=== PATIENT | male | born 1955 | race Caucasian/White ===

== ENCOUNTER 2018-08-03 10:14 | Observation (INO) | payer OTHER ==
[2018-08-03 10:57] VITALS: BMI 29.8
[2018-08-03] MEDS ORDERED: GLUCAGON 1 MG/VIAL IM PRN (11:08)
[2018-08-03] MEDS: INSULIN -REGULAR HUMAN 50 UNIT/0.5 ML ML SQ SCH ×3 (12:00→23:32)
[2018-08-03] MEDS: NACHLORIDE 0.45% 1,000 ML IV SCH ×2 (12:10→21:11)
[2018-08-03 13:45] LABS: Urine Appearance CLEAR; Urine Blood NEGATIVE (NEG); Urine Color DK YELLOW; Urine Glucose NEGATIVE (NEG); Urine Protein NEGATIVE (NEG); Urine Specific Gravity 1.015 (1.005-1.030)
[2018-08-03 13:49] LABS: Urine Bilirubin NEG (NEG); Urine Microscopic Reflex ORDER UMIC
--- NOTE | 2018-08-03 13:55 | RAD REPORT ---
EXAM DESCRIPTION: CT - Abdomen Pelvis W Contrast - 08/03/2018 1:43 pm CLINICAL HISTORY: Abdominal pain. Jaundice COMPARISON: None. TECHNIQUE: Computed axial tomography of the abdomen and pelvis was obtained. 100 cc Isovue-300 is ad ministered intravenously. Oral contrast was given. All CT scans are performed using dose optimization technique as appropriate and may include automated exposure control or mA/KV adjustment according to patient size. FINDINGS: Gallstones without gallbladder wall thickening. Biliary tree does not appear to be dilated The liver, spleen, pancreas, and adrenal appear unremarkable. 13 millimeter calculus within the left renal pelvis without hydronephrosis. Several additional bilate ral renal calculi. Small renal cysts. There is no evidence of diverticulitis Prostate gland is mildly enlarged. Spondylosis involves lumbar spine resulting spinal stenosis IMPRESSION: Bilateral nonobstructing renal calculi Cholelithiasis without cholecystitis
[2018-08-03 13:57] LABS: Urine Bacteria <20 /HPF (NONE SEEN); Urine Culture Reflex Order REFLEXED; Urine RBC <5 /HPF (NONE SEEN)
[2018-08-03] MEDS: D50W 25 GM/50 ML SYRINGE IV PRN ×2 (18:45→23:31)
[2018-08-03 18:58] LABS: Absolute Lymphocytes (CBC) 1.8 K/uL (0.7-4.9); Absolute Monocytes 0.7 K/uL (0.1-1.3); Absolute Neutrophil 4.6 K/uL (1.8-8.0); Basophils % 0.3 % (0-1.3); Eosinophils % 9.9 % (0-4.4); Hematocrit 41.3 % (39.6-49.0); Lymphocytes % 23.3 % (15.3-44.8); MPV 7.4 fL (7.6-11.3); Monocytes % 8.8 % (3.3-12.3); RBC Red Blood Cell Count 4.43 M/uL (4.33-5.43)
[2018-08-03 19:02] LABS: Protime INR 1.1
[2018-08-03 19:18] LABS: Bilirubin Direct 2.2 mg/dL (0-0.2); Bilirubin Total 2.8 mg/dL (0.2-1.0); Phosphorus 3.7 mg/dL (2.5-4.9)
--- NOTE | 2018-08-03 20:14 | RAD REPORT ---
EXAM DESCRIPTION: MRI - Cholangiogram - 08/03/2018 7:55 pm CLINICAL HISTORY: Biliary obstruction, abdominal pain COMPARISON: CT study August 03 TECHNIQUE: Axial and coronal heavily T2 weighted sequences were obtained. Coronal T2 HASTE fat satur ation static and coronal multiplane reconstruction imaging generated and reviewed. Horizontal and laquita tical axis rotational views obtained using maximum intensity projection (MIP) protocol. FINDINGS: Multiple clustered gallstones are identified matching the CT finding. No gallbladder wall thickening or edema findings identifiable. No abnormal pancreatic duct dilatation. No intrahepatic bi liary tree dilatation identified. Extrahepatic biliary tree is small in diameter. No duct stone, stri cture, mass or other biliary tree abnormality. Crossing vascular defects are present. IMPRESSION: No duct stone or other biliary tree abnormality. Cholelithiasis without cholecystitis.
[2018-08-04] MEDS: INSULIN -REGULAR HUMAN 50 UNIT/0.5 ML ML SQ SCH ×4 (06:00→21:00)
[2018-08-04] MEDS ORDERED: D5 0.45 NS 1,000 ML IV SCH (07:00)
[2018-08-04 18:01] LABS: Bilirubin Total 2.5 mg/dL (0.2-1.0); Potassium 4.4 mmol/L (3.5-5.1); Protein, Total 7.2 g/dL (6.4-8.2)
--- NOTE | 2018-08-04 18:17 | HP ---
Date of Admission: 08/03/2018 Chief Complaint: Jaundice. History Of Present Illness: A 63-year-old male was seen in the office the day before admission for a visit. However, he was found to have jaundice. Outpatient workup including lab was done, which ivanna wed evidence of hyperbilirubinemia and elevated liver enzymes with a possibility of biliary obstructi on. The patient was admitted for observation. Past Medical History: The patient is known to have history of type 2 diabetes and hypertension. No history of known coronary artery disease. Past Surgical History: Positive for appendix surgery and cataract surgery. Allergies: NONE. Home Medications: Please refer to the chart. Review of Systems: No history of fever, chills, rigors. Social History: No current history of smoking, however, has a past history of smoking. Physical Examination: General: Revealed a 63-year-old male, not in acute pain. Afebrile. HEENT: Icterus noted. Chest: Few scattered wheezes. Heart: Regular. Abdomen: Soft. No palpable mass. Extremities: No edema. Laboratory Data: Elevated bilirubin, normal white count as documented. Assessment: 1.Jaundice with elevated liver enzymes. 2.Type 2 diabetes. 3.Hypertension. Plan: The patient had MRCP and CAT scan. This does not show any evidence of biliary obstruction. T he patient very likely may have had acute liver injury of some cause as his liver enzymes in the past were normal. GI consult has been done. MARYLOU/GEM Voice ID: [id number]
[2018-08-05 00:34] VITALS: O2SAT 93
[2018-08-05 05:05] VITALS: BP 124/79; TEMP 97
[2018-08-05 05:51] LABS: Albumin 3.2 g/dL (3.4-5.0); Bilirubin Direct 2.1 mg/dL (0-0.2); Bilirubin Total 2.7 mg/dL (0.2-1.0); Protein, Total 7.3 g/dL (6.4-8.2)
[2018-08-05] MEDS: INSULIN -REGULAR HUMAN 50 UNIT/0.5 ML ML SQ SCH (07:30)
--- NOTE | 2018-08-05 12:45 | P.PN ---
Subjective Date of Service: 08/05/18 Chief Complaint: Jaundice, hepatitis, elevated globulin Subjective: Improving (Total bilirubin as per PCP max at 4-5 and now at 2.5- 2.8. He feels well today without F/C/NS/N/V. Tolerating po diet. No new medications.) Review of Systems 10-point ROS is otherwise unremarkable Integumentary: Jaundice Physical Examination - Vital Signs Temperature: 97.0 F Blood Pressure: 124/79 Pulse: 89 Respirations: 18 Pulse Ox (%): 99 - Physical Exam General: Alert, In no apparent distress, Oriented x3, Cooperative HEENT: Atraumatic, Normocephalic, PERRLA, EOMI, Scleral icterus Neck: Supple Respiratory: Normal air movement Cardiovascular: Normal pulses Gastrointestinal: Soft and benign, No tenderness, No rebound, No guarding Neurological: Normal speech, Normal strength at 5/5 x4 extr - Studies Laboratory Data (last 24 hrs) 08/05/18 : PT Cancelled, INR Cancelled, APTT Cancelled 08/05/18 : WBC Cancelled, Hgb Cancelled, Hct Cancelled, Plt Count Cancelled 08/05/18 04:59: Total Bilirubin 2.7 H, AST 52 H, ALT 61, Alkaline Phosphatase 129 H 08/04/18 17:33: Sodium 140, Potassium 4.4, BUN 22 H, Creatinine 1.22, Glucose 117 H, Total Bilirubin 2.5 H, AST 54 H, ALT 63, Alkaline Phosphatase 134 H Microbiology Data (last 24 hrs): 08/03/18 13:00 Clean Catch Urine [place] Count - Final BETWEEN 10,000 & 100,000 CFU/ML 08/03/18 13:00 Clean Catch Urine - Final Assessment And Plan - Current Problems (Diagnosis) (1) Jaundice due to hepatitis Status: Acute (2) Hepatitis Status: Acute Comment: Autoimmune or infectious or other. (3) Elevated liver enzymes Status: Acute - Plan REC: 1) await labs (RAYMOND, AMA, ASMA, anti-LKM, total IgG, viral hepatitis panel, HSV, CMV, EBV titers) 2) pharmacy to review medications for possible cause of hepatitis 3) consider steroids if viral hepatitis tests negative
[2018-08-07 05:46] LABS: Gamma Glutamyl Transpeptidase 127 U/L (3-70)
[2018-08-10 03:12] LABS: HBsAG Nonreactive (Nonreactive); Hepatitis A IgM Antibody Nonreactive
== END 2018-08-05 12:29 | disposition home or self-care (01) ==
LOC: 2ND 10:30
PROVIDERS: ADMIT Internal Medicine; ATTEND Internal Medicine
DX: B17.9 Acute viral hepatitis, unspecified (principal); R17 Unspecified jaundice; R74.8 Abnormal levels of other serum enzymes; E11.9 Type 2 diabetes mellitus without complications; I10 Essential (primary) hypertension
CPT/HCPCS: 87088; 85025; 87086; 82977; 36415 ×3; 83735; 84100; 85610; 82565; 82962 ×9; 80076 ×2; 85730; 80053; 86038; 86255 ×2; 82784; 86301; 86376 ×2; 80074; 74177; 74181; Q9967; G0379; G0378; 81003; 81015

== ENCOUNTER 2020-06-26 17:49 | Inpatient (IN) | payer OTHER ==
--- NOTE | 2020-06-26 18:50 | RAD REPORT ---
EXAM DESCRIPTION: RAD - Chest Single View - 06/26/2020 6:25 pm CLINICAL HISTORY: edema Chest pain. COMPARISON: No comparisons FINDINGS: Portable technique limits examination quality. Mild interstitial pulmonary edema seen. The heart is upper limit normal in size. No displaced fractur es.
[2020-06-26 18:55] LABS: Absolute Lymphocytes (CBC) 0.8 K/uL (0.7-4.9); Basophils % 0.5 % (0-1.3); Hematocrit 49.4 % (39.6-49.0); MPV 8.6 fL (7.6-11.3); RBC Red Blood Cell Count 5.55 M/uL (4.33-5.43)
[2020-06-26 19:22] LABS: Albumin 2.5 g/dL (3.4-5.0); Bilirubin Direct 0.9 mg/dL (0-0.2); Bilirubin Total 1.4 mg/dL (0.2-1.0); Magnesium 2.4 mg/dL (1.8-2.4); Potassium 5.1 mmol/L (3.5-5.1); Protein, Total 8.3 g/dL (6.4-8.2); Troponin (Emerg Dept Use Only) 0.1 ng/mL (0.0-0.045)
[2020-06-26 19:25] LABS: Protime INR 1.44
--- NOTE | 2020-06-26 20:06 | RAD REPORT ---
EXAM DESCRIPTION: US - Extrem Venous W Compress Raza - 06/26/2020 7:41 pm CLINICAL HISTORY: Pain;Swelling Bilateral leg edema and swelling. COMPARISON: No comparisons TECHNIQUE: Real-time sonographic interrogation of the left and right lower extremity deep venous sys tems was performed. FINDINGS: The right greater saphenous vein near the junction with the common femoral vein demonstrat es echogenic thrombus. Elsewhere, there is no DVT seen bilaterally. Posterior tibial veins were not w ell visualized bilaterally. IMPRESSION: Echogenic thrombus is present within the right greater saphenous vein in close proximity to the junction with the common femoral vein. Elsewhere, no bilateral lower extremity DVT evident.
--- NOTE | 2020-06-26 20:39 | EDPHYS ---
Physician Documentation [facility] Name: George Ryder Age: 65 yrs Sex: Male : 1955 Arrival Date: 06/26/2020 Time: 17:54 Bed 15 Private MD: Orlando Jefferson R ED Physician Gerry Hanson HPI: 06/26 18:15 This 65 yrs old Male presents to ER via EMS with complaints of Leg Swelling. cp 18:15 The patient presents with pain, swelling, tenderness. The complaints affect the right cp lower leg and left lower leg. Onset: The symptoms/episode began/occurred 6 week(s) ago. Associated signs and symptoms: Pertinent positives: warmth, shortness of breath, Pertinent negatives fever. Treatment prior to arrival includes: no previous treatment. Historical: - Allergies: 17:56 No Known Allergies; hb - Home Meds: 17:58 Glimepiride Oral [Active]; Lisinopril Oral [Active]; hb - PMHx: 17:58 High Cholesterol; Diabetes - NIDDM; Hypertension; Prostate; hb - Immunization history:: Adult Immunizations up to date, Flu vaccine is up to date. - Social history:: Smoking status: Patient denies any tobacco usage or history of. ROS: 18:20 Constitutional: Negative for body aches, chills, fever, poor PO intake. cp 18:20 Eyes: Negative for injury, pain, redness, and discharge. cp 18:20 ENT: Negative for ear pain, sore throat, difficulty swallowing, difficulty handling secretions. 18:20 Cardiovascular: Positive for edema, Negative for chest pain, palpitations. 18:20 Respiratory: Positive for shortness of breath, Negative for cough, wheezing. 18:20 Abdomen/GI: Negative for abdominal pain, nausea, vomiting, and diarrhea. 18:20 Back: Negative for pain at rest, pain with movement. 18:20 Neuro: Negative for altered mental status, headache, syncope, weakness. 18:20 All other systems are negative. Exam: 18:25 Constitutional: The patient appears in no acute distress, alert, awake, cp non-diaphoretic, non-toxic, well developed, well nourished, obese. 18:25 Head/Face: Normocephalic, atraumatic. cp 18:25 Eyes: Periorbital structures: appear normal, Conjunctiva: normal, no exudate, no injection, Sclera: no appreciated abnormality, Lids and lashes: appear normal, bilaterally. 18:25 ENT: External ear(s): are unremarkable, Nose: is normal, Mouth: Lips: moist, Oral mucosa: moist, Posterior pharynx: Airway: no evidence of obstruction, patent. 18:25 Neck: ROM/movement: is normal, is supple, without pain, no range of motions limitations. 18:25 Chest/axilla: Inspection: normal, Palpation: is normal, no crepitus, no tenderness. 18:25 Cardiovascular: Rate: tachycardic, Rhythm: regular, Edema: ankle edema, that is moderate, JVD: is not appreciated. 18:25 Respiratory: the patient does not display signs of respiratory distress, Respirations: labored breathing, that is mild, intercostal retractions, are absent, Breath sounds: decreased breath sounds, that are mild, throughout, stridor, is not appreciated, wheezing: is not appreciated. 18:25 Abdomen/GI: Inspection: abdomen appears normal, Bowel sounds: active, all quadrants, Palpation: abdomen is soft and non-tender, in all quadrants. 18:25 Back: pain, is absent, ROM is normal. 18:25 Skin: noted erythema left lower leg. 18:25 Neuro: Orientation: to person, place \T\ time. Mentation: is normal, Motor: moves all fours, general weakness with no focal deficits. 18:35 ECG was reviewed by the Attending Physician. cp Vital Signs: 17:55 BP 112 / 80; Pulse 113; Resp 20; Temp 97.1; Pulse Ox 96% on R/A; Weight 113.4 kg; hb Height 6 ft. 1 in. (185.42 cm); Pain 4/10; 18:45 BP 94 / 69; Pulse 109; Resp 19; Pulse Ox 96% on R/A; tw2 19:10 BP 97 / 74; Pulse 107; Resp 27; Pulse Ox 93% on R/A; jb4 20:15 BP 101 / 68; Pulse 107; Resp 23; Pulse Ox 98% on R/A; jb4 21:00 BP 120 / 84; Pulse 108; Resp 30; Pulse Ox 94% on R/A; jb4 22:30 BP 100 / 82; Pulse 103; Resp 24; Pulse Ox 93% on R/A; jb4 23:15 BP 107 / 84; Pulse 101; Resp 28; Pulse Ox 92% on R/A; jb4 17:55 Body Mass Index 32.98 (113.40 kg, 185.42 cm) hb MDM: 17:56 Patient medically screened. adeline 18:30 Differential diagnosis: DVT, cellulitis, pulmonary edema, CHF acute NV. cp 20:45 Data reviewed: vital signs, nurses notes, lab test result(s), EKG, radiologic studies, cp plain films, ultrasound. 20:45 Test interpretation: by ED physician or midlevel provider: ECG, plain radiologic cp studies. Counseling: I had a detailed discussion with the patient and/or guardian regarding: the historical points, exam findings, and any diagnostic results supporting the discharge/admit diagnosis, lab results, radiology results, the need for further work-up and treatment in the hospital. Response to treatment: the patient's symptoms have mildly improved after treatment. Physician consultation: Elio BREWSTER was contacted at 20:40, regarding admission, to the telemetry unit. patient's condition, and will see patient in ED, shortly. 06/26 18:08 Order name: Basic Metabolic Panel cp 06/26 18:08 Order name: CBC with Diff; Complete Time: 19:56 cp 18 19:56 Interpretation: Normal except: RBC 5.55; HCT 49.4; MCV 88.9; MCH 28.2; MCHC 31.7; RDW cp 15.7; BECKIE% 79.8; LYM% 8.0. 06/26 18:08 Order name: LFT's; Complete Time: 19:56 cp 18 19:57 Interpretation: Normal except: ALK 122; BILIT 1.4; BILID 0.9; TP 8.3; ALB 2.5; GLOB cp 5.8; A/G 0.4. 06/26 18:08 Order name: Magnesium; Complete Time: 19:56 cp 18 18:08 Order name: NT PRO-BNP; Complete Time: 19:56 cp 18 18:08 Order name: PT-INR; Complete Time: 19:56 cp 18 18:08 Order name: Troponin (emerg Dept Use Only); Complete Time: 19:56 cp 02/18 19:57 Interpretation: Abnormal: TROPED 0.10. cp 06/26 18:08 Order name: XRAY Chest (1 view); Complete Time: 18:52 cp 02 18:52 Interpretation: Report reviewed. cp 06/26 18:08 Order name: US Extremity Venous W Compression Raza; Complete Time: 20:14 cp 18 18:08 Order name: Basic Metabolic Panel; Complete Time: 19:56 EDMS 02 19:57 Interpretation: Normal except: BUN 29; CRE 1.42; GFR 50; CA 8.3. cp 06/26 22:30 Order name: SARS-COV-2 RT PCR EDMS 06/26 18:08 Order name: EKG; Complete Time: 18:09 cp 06/26 18:08 Order name: Cardiac monitoring; Complete Time: 18:43 cp 06/26 18:08 Order name: EKG - Nurse/Tech; Complete Time: 18:43 cp 06/26 18:08 Order name: IV Saline Lock; Complete Time: 18:43 cp 06/26 18:08 Order name: Labs collected and sent; Complete Time: 18:43 cp 06/26 18:08 Order name: O2 Per Protocol; Complete Time: 18:43 cp 18 18:08 Order name: O2 Sat Monitoring; Complete Time: 18:42 cp EC:35 Rate is 110 beats/min. Rhythm is regular. VT interval is normal. QRS interval is cp normal. QT interval is normal. T waves are Inverted in leads II, III, aVR, V3, V4, V5, V6. Interpreted by me. Reviewed by me. Administered Medications: 20:45 Drug: Aspirin Chewable Tablet 324 mg Route: PO; jb4 21:15 Follow up: Response: No adverse reaction jb4 20:45 Drug: Lovenox 1 mg/kg Route: Sub-Q; Site: right lower abdomen; jb4 21:15 Follow up: Response: No adverse reaction jb4 20:46 Drug: Lasix 20 mg Route: IVP; Site: left forearm; jb4 06/27 03:28 Follow up: Response: No adverse reaction jb4 06/26 20:47 Drug: Clindamycin 900 mg Route: IVPB; Infused Over: 30 mins; Site: left forearm; jb4 21:17 Follow up: Response: No adverse reaction; IV Status: Completed infusion; IV Intake: [id number] 21:58 Drug: vancoMYCIN 1 grams Route: IVPB; Infused Over: 2 hrs; Site: left forearm; jb4 23:58 Follow up: Response: No adverse reaction; IV Status: Completed infusion; IV Intake: jb4 250ml Disposition: 06/27 19:16 Co-signature as Attending Physician, Gerry Hanson MD I agree with the assessment and tw4 plan of care. Disposition: 06/26/20 20:39 Hospitalization ordered by Carlos Francisco for Inpatient Admission. Preliminary diagnosis are Unspecified combined systolic (congestive) and diastolic (congestive) heart failure, Acute embolism and thrombosis of unspecified deep veins of left lower extremity. - Bed requested for Telemetry/MedSurg (Inpatient). - Status is Inpatient Admission. jb4 - Condition is Fair. - Problem is new. - Symptoms have improved. Signatures: Dispatcher [employer] EDFL Mitch Sesay MD MD cha Page, Corey, PA PA cp Garcia, Cindy, RN RN Callie Lam RN RN Ihsan Crook RN RN banner Gerry Hanson MD MD 4 Corrections: (The following items were deleted from the chart) 02 19:57 19:57 Normal except: ALK 122; BILIT 1.4; BILID 0.9; TP 8.3; ALB 2.5; GLOB 5.8. cp cp 19:58 19:57 Normal except: BUN 29; CRE 1.42; GFR 50. cp cp 21:44 21:23 CORONAVIRUS+MR.LAB.BRZ ordered. [facility] 23:47 20:39 Hospitalization Ordered by Carlos Francisco DO for Inpatient Admission. Preliminary cg diagnosis is Unspecified combined systolic (congestive) and diastolic (congestive) heart failure; Acute embolism and thrombosis of unspecified deep veins of left lower extremity. Bed requested for Telemetry/MedSurg (Inpatient). Status is Inpatient Admission. Condition is Fair. Problem is new. Symptoms have improved. cp 06/27 00:41 06/26 23:47 06/26/2020 20:39 Hospitalization Ordered by Carlos Francisco DO for Inpatient jb4 Admission. Preliminary diagnosis is Unspecified combined systolic (congestive) and diastolic (congestive) heart failure; Acute embolism and thrombosis of unspecified deep veins of left lower extremity. Bed requested for Telemetry/MedSurg (Inpatient). Status is Inpatient Admission. Condition is Fair. Problem is new. Symptoms have improved. cg
--- NOTE | 2020-06-26 20:39 | ER ---
Nurse's Notes [facility] Name: George Ryder Age: 65 yrs Sex: Male : 1955 Arrival Date: 06/26/2020 Time: 17:54 Bed 15 Private MD: Orlando Jefferson R Diagnosis: Unspecified combined systolic (congestive) and diastolic (congestive) heart failure;Acute embolism and thrombosis of unspecified deep veins of left lower extremity Presentation: 06/26 17:55 Chief complaint: EMS states: Bilateral lower leg pain and swelling x 6 weeks. hb Coronavirus screen: At this time, the client does not indicate any symptoms associated with coronavirus-19. Ebola Screen: No symptoms or risks identified at this time. Initial Sepsis Screen: Does the patient meet any 2 criteria? HR > 90 bpm. No. Patient's initial sepsis screen is negative. Does the patient have a suspected source of infection? No. Patient's initial sepsis screen is negative. Risk Assessment: Do you want to hurt yourself or someone else? Patient reports no desire to harm self or others. Onset of symptoms was May 2020. 17:55 Method Of Arrival: EMS: [facility] hb 17:55 Acuity: CYRUS 3 hb Historical: - Allergies: 17:56 No Known Allergies; hb - Home Meds: 17:58 Glimepiride Oral [Active]; Lisinopril Oral [Active]; hb - PMHx: 17:58 High Cholesterol; Diabetes - NIDDM; Hypertension; Prostate; hb - Immunization history:: Adult Immunizations up to date, Flu vaccine is up to date. - Social history:: Smoking status: Patient denies any tobacco usage or history of. Screenin:57 Abuse screen: Denies threats or abuse. Denies injuries from another. Nutritional hb screening: No deficits noted. Tuberculosis screening: No symptoms or risk factors identified. Fall Risk Total Cherry Fall Scale indicates High Risk Score (45 or more points). Fall prevention measures have been instituted. Side Rails Up X 2 Frequent Obs/Assessments Occuring As available patient and family educated on Fall Prevention Program and Strategies. Assessment: 18:00 General: Appears in no apparent distress. obese, unkempt, Behavior is calm, tw2 cooperative, appropriate for age. Pain: Complains of pain in right leg and left leg. Neuro: Level of Consciousness is awake, alert, obeys commands, Oriented to person, place, time, situation. Cardiovascular: Patient's skin is warm and dry. Respiratory: Airway is patent Respiratory effort is even, unlabored, Respiratory pattern is regular, symmetrical. GI: Abdomen is round. : No signs and/or symptoms were reported regarding the genitourinary system. EENT: No signs and/or symptoms were reported regarding the EENT system. Derm: Skin with poor turgor Skin is dry. Musculoskeletal: swelling noted to B/L ARABELLA, also noted multiple sites of large black scabbed sores to Right knee and Left hollins area, also noted sore noted to left ball of great toe with scab intact Reports pain in right leg and left leg and swelling with sores noted to RIGHT and LEFT leg. 18:45 Reassessment: No changes from previously documented assessment. Patient and/or family tw2 updated on plan of care and expected duration. Pain level reassessed. 19:10 Reassessment: Patient appears in no apparent distress at this time. Patient and/or jb4 family updated on plan of care and expected duration. Pain level reassessed. Patient is alert, oriented x 3, equal unlabored respirations, skin warm/dry/pink. Ultrasound is at the bedside. 20:00 Reassessment: Patient appears in no apparent distress at this time. Patient and/or jb4 family updated on plan of care and expected duration. Pain level reassessed. Patient is alert, oriented x 3, equal unlabored respirations, skin warm/dry/pink. 21:00 Reassessment: Patient appears in no apparent distress at this time. Patient and/or jb4 family updated on plan of care and expected duration. Pain level reassessed. Patient is alert, oriented x 3, equal unlabored respirations, skin warm/dry/pink. 22:00 Reassessment: Patient appears in no apparent distress at this time. Patient and/or jb4 family updated on plan of care and expected duration. Pain level reassessed. Patient is alert, oriented x 3, equal unlabored respirations, skin warm/dry/pink. 23:00 Reassessment: Patient appears in no apparent distress at this time. Patient and/or jb4 family updated on plan of care and expected duration. Pain level reassessed. Patient is alert, oriented x 3, equal unlabored respirations, skin warm/dry/pink. 06/27 00:00 Reassessment: Patient appears in no apparent distress at this time. Patient and/or jb4 family updated on plan of care and expected duration. Pain level reassessed. Patient is alert, oriented x 3, equal unlabored respirations, skin warm/dry/pink. Vital Signs: 06/26 17:55 BP 112 / 80; Pulse 113; Resp 20; Temp 97.1; Pulse Ox 96% on R/A; Weight 113.4 kg; hb Height 6 ft. 1 in. (185.42 cm); Pain 4/10; 18:45 BP 94 / 69; Pulse 109; Resp 19; Pulse Ox 96% on R/A; tw2 19:10 BP 97 / 74; Pulse 107; Resp 27; Pulse Ox 93% on R/A; jb4 20:15 BP 101 / 68; Pulse 107; Resp 23; Pulse Ox 98% on R/A; jb4 21:00 BP 120 / 84; Pulse 108; Resp 30; Pulse Ox 94% on R/A; jb4 22:30 BP 100 / 82; Pulse 103; Resp 24; Pulse Ox 93% on R/A; jb4 23:15 BP 107 / 84; Pulse 101; Resp 28; Pulse Ox 92% on R/A; jb4 17:55 Body Mass Index 32.98 (113.40 kg, 185.42 cm) hb ED Course: 17:54 Patient arrived in ED. hb 17:54 Bed in low position. Call light in reach. Side rails up X2. shutdown planner on. Pulse tw2 ox on. NIBP on. Warm blanket given. 17:55 Mitch Mayfield PA is PHCP. cp 17:55 Mitch Sesay MD is Attending Physician. cp 17:56 Triage completed. hb 17:57 Arm band placed on. hb 17:59 Orlando Jefferson MD is Private Physician. hb 18:17 Evon Chun RN is Primary Nurse. tw2 18:25 XRAY Chest (1 view) In Process Unspecified. EDMS 18:40 Missed attempt(s): 20 gauge in right forearm. Bleeding controlled, band aid applied, tw2 catheter tip intact. 18:44 Inserted saline lock: 22 gauge in left forearm, using aseptic technique. Blood hb collected. 19:05 Report given to DAGO Samuels. tw2 19:40 US Extremity Venous W Compression Raza In Process Unspecified. EDMS 19:56 Gerry Hanson MD is Attending Physician. cp 20:37 Carlos Francisco DO is Hospitalizing Provider. cp 06/27 00:00 No provider procedures requiring assistance completed. Patient admitted, IV remains in jb4 place. Administered Medications: 06/26 20:45 Drug: Aspirin Chewable Tablet 324 mg Route: PO; jb4 21:15 Follow up: Response: No adverse reaction jb4 20:45 Drug: Lovenox 1 mg/kg Route: Sub-Q; Site: right lower abdomen; jb4 21:15 Follow up: Response: No adverse reaction jb4 20:46 Drug: Lasix 20 mg Route: IVP; Site: left forearm; jb4 06/27 03:28 Follow up: Response: No adverse reaction jb4 06/26 20:47 Drug: Clindamycin 900 mg Route: IVPB; Infused Over: 30 mins; Site: left forearm; jb4 21:17 Follow up: Response: No adverse reaction; IV Status: Completed infusion; IV Intake: [id number] 21:58 Drug: vancoMYCIN 1 grams Route: IVPB; Infused Over: 2 hrs; Site: left forearm; jb4 23:58 Follow up: Response: No adverse reaction; IV Status: Completed infusion; IV Intake: jb4 250ml Intake: 21:17 IV: 50ml; Total: 50ml. jb4 23:58 IV: 250ml; Total: 300ml. jb4 Outcome: 20:39 Decision to Hospitalize by Provider. cp 06/27 00:00 Admitted to Tele accompanied by nurse, via stretcher, room 430, with chart, Report jb[facility] Condition: stable Discharge instructions given to patient, Instructed on the need for admit, Demonstrated understanding of instructions. 00:41 Patient left the ED. jb4 Signatures: Dispatcher [employer] EDVA Mitch Mayfield PA PA cp Callie Lam, RN RN hb Evon Chun RN RN tw2 Ihsan Crook RN RN jb4 Corrections: (The following items were deleted from the chart) 06/26 19:11 16:40 Missed attempt(s): 20 gauge in right forearm. Bleeding controlled, band aid tw2 applied, catheter tip intact. hb
[2020-06-26] MEDS ORDERED: ASPIRIN 81 MG CHEWABLE TABLET ONE (20:49)
[2020-06-26] MEDS ORDERED: FUROSEMIDE 20 MG/ 2ML VIAL ONE (20:49)
[2020-06-26] MEDS ORDERED: NA CHLORIDE 0.9% 250 ML ONE (20:50)
[2020-06-26] MEDS ORDERED: ENOXAPARIN 80 MG/0.8 ML SQ ONE (20:50)
[2020-06-26] MEDS ORDERED: ENOXAPARIN 30 MG/0.3 ML SQ ONE (20:50)
[2020-06-26] MEDS ORDERED: VANCOMYCIN 1 GM/VIAL ONE (20:50)
[2020-06-26] MEDS ORDERED: CLINDAMYCIN 900MG/D5W 900 MG/50 ML IVPB IV ONE (20:51)
--- NOTE | 2020-06-26 23:39 | P.HP ---
Certification for Inpatient Patient admitted to: Inpatient With expected LOS: >2 Midnights Patient will require the following post-hospital care: None Practitioner: I am a practitioner with admitting privileges, knowledge of patient current condition, hospital course, and medical plan of care. Services: Services provided to patient in accordance with Admission requirements found in Title 42 Section 412.3 of the Code of Federal Regulations <lEio Rosado - Last Filed: 06/26/20 23:33> Patient History Date of Service: 06/26/20 Primary Care Provider: Dr. Jefferson Reason for admission: NSTEMI History of Present Illness: 65-year-old male with history of hypertension, diabetes mellitus type 2, hyperlipidemia presents emergency department for swelling of the lower extremities, weakness. Patient reports he has had significant swelling of the lower extremities for last 6-8 weeks in addition to redness of the left lower extremity. Patient with multiple wounds from multiple falls to bilateral lower extremities with open ulcerations as well. Patient evaluated in the emergency department lab significant for creatinine 1.42 GFR 50 BUN 29 baseline GFR appears to be around 60. BNP elevated 14,432 0 blood cell count 9.6 ultrasound bilateral lower extremities demonstrates thrombus present in the right greater saphenous vein close to the junction with the common femoral vein. Chest x-ray remarkable for mild interstitial edema initial troponin 0.1. Patient given full dose Lovenox in the emergency department in addition to vancomycin/cefepime. ED provider wishes to admit patient for further evaluation and management. Patient reports that he lives alone and has been falling multiple times over the course of the last few weeks, reports he can barely stand up on his own and does not have any assistive devices at home. - Past Medical/Surgical History Diabetic: Yes -: HTN -: DM -: Hyperlipidemia -: cataract sx -: appendectomy Psychosocial/ Personal History: Patient lives at home alone and is retired - Family History Father -: Heart disease - Social History Alcohol use: No CD- Drugs: No Caffeine use: No Place of Residence: Home <Elio Rosado - Last Filed: 06/26/20 23:33> Date of Service: 06/27/20 <Siddharth Montalvo - Last Filed: 06/27/20 20:32> Allergies No Known Allergies Allergy (Verified 08/03/18 10:49) Home Medications: Atorvastatin Calcium [Lipitor] 5 mg PO DAILY 08/03/18 Glimepiride 4 mg PO BID 08/03/18 lisinopriL [Prinivil] 5 mg PO DAILY 08/03/18 Review of Systems General: Weakness Respiratory: Shortness of Breath Cardiovascular: Edema Musculoskeletal: Leg Pain Integumentary: Rash <Elio Rosado - Last Filed: 06/26/20 23:33> Physical Examination - Physical Exam General: Alert, In no apparent distress, Oriented x3 HEENT: Atraumatic, Normocephalic Neck: Supple Respiratory: Crackles/rales (Bibasilar) Cardiovascular: Normal pulses, Normal S1 S2, Edema (2+ pitting edema bilateral lower extremities) Capillary refill: <2 Seconds Gastrointestinal: Normal bowel sounds, No tenderness, No masses, No rebound Musculoskeletal: Swelling (Bilateral lower extremities), Erythema, Tenderness, Warmth (Left lower extremity) Integumentary: Tenderness/swelling (Left lower extremity with swelling to the right lower extremity), Erythema, Warmth, Other (Multiple ulcerations/scabs to bilateral lower extremities patient reports from multiple falls.) Neurological: Normal speech, Sensation intact, Abnormal strength (Strength 4/5 in all 4 extremities) - Studies Laboratory Data (last 24 hrs) 06/26/20 18:40: PT 16.6 H, INR 1.44 06/26/20 18:40: WBC 9.60, Hgb 15.7, Hct 49.4 H, Plt Count 248 06/26/20 18:40: Sodium 137, Potassium 5.1, BUN 29 H, Creatinine 1.42 H, Glucose 96, Magnesium 2.4, Total Bilirubin 1.4 H, AST 30, ALT 31, Alkaline Phosphatase 122 H <Elio Rosado - Last Filed: 06/26/20 23:33> Assessment and Plan - Plan Assessment NSTEMI suspect demand ischemia with underlying undiagnosed CHF Cellulitis left lower extremity Superficial venous thrombosis right greater saphenous vein Weakness, medical debility, multiple falls Diabetes mellitus type 2 Hypertension Hyperlipidemia Plan NSTEMI suspect demand ischemia with underlying undiagnosed CHF: Monitor on telemetry, trend troponin levels. Patient denies any chest pain. Continue with IV Lasix, fluid restriction. Cardiology consult in place. Continue with full- dose Lovenox for both NSTEMI and superficial venous thrombosis. Cellulitis left lower extremity: Continue with vancomycin/cefepime blood cultures obtained in the emergency department, patient does not appear septic at this time. Anticipate clinical improvement next 48-72 hr. Superficial venous thrombosis right greater saphenous vein: Very close to the j unction of the common femoral vein, high risk for DVT/PE. Continue with full- dose Lovenox at this time. Weakness, medical debility, multiple falls: PT consult in place, patient lives alone and has had multiple falls over the course of the last few weeks. Patient will likely need home health with physical therapy at discharge. Diabetes mellitus type 2: A.c. HS Accu-Cheks, sliding scale insulin therapy. A1c with morning labs. Hypertension: Obtain and continue home meds Hyperlipidemia: Obtain and continue home meds lipid panel with morning labs Discharge Plan: Home Plan to discharge in: Greater than 2 days - Advance Directives Does patient have a Living Will: No Does patient have a Durable POA for Healthcare: Yes - Code Status/Comfort Care Code Status Assessed: Yes (Full code) Critical Care: No Time Spent Managing Pts Care (In Minutes): 55 <Elio Rosado - Last Filed: 06/26/20 23:33> - Plan Agree with plan of care as noted above by Elio Rosado. NSTEMI, likely undiagnosed CHF, appears very debilitated Echo ordered. Cardiology consulted <Siddharth Montalvo - Last Filed: 06/27/20 20:32>
[2020-06-27] MEDS ORDERED: HYDROCODONE/APAP 7.5/325 MG TAB PO PRN (00:42)
[2020-06-27] MEDS ORDERED: VANCOMYCIN/NS 1 gm 1 GM/250 ML BAG IVPB SCH (00:42)
[2020-06-27] MEDS ORDERED: ONDANSETRON 4 MG/2 ML VIAL IV PRN (00:42)
[2020-06-27] MEDS ORDERED: VANCOMYCIN/NS 1 gm 1 GM/250 ML BAG IVPB ONE (01:30)
[2020-06-27] MEDS ORDERED: VANCOMYCIN 1 GM/VIAL ONE (01:56)
[2020-06-27] MEDS ORDERED: NA CHLORIDE 0.9% 250 ML ONE (02:03)
[2020-06-27] MEDS: ACETAMINOPHEN 500 MG TAB PO PRN (02:17)
[2020-06-27 06:45] LABS: Absolute Lymphocytes (CBC) 0.8 K/uL (0.7-4.9); Basophils % 0.2 % (0-1.3); Hematocrit 48.2 % (39.6-49.0); Lymphocytes % 10.5 % (15.3-44.8); MPV 9.2 fL (7.6-11.3); RBC Red Blood Cell Count 5.36 M/uL (4.33-5.43)
[2020-06-27 06:58] LABS: Magnesium 2.4 mg/dL (1.8-2.4); Potassium 5.1 mmol/L (3.5-5.1); Thyroid Stimulating Hormone 0.558 uIU/mL (0.360-3.740)
[2020-06-27] MEDS: INSULIN -REGULAR HUMAN 50 UNIT/0.5 ML ML SQ SCH ×4 (07:30→21:00)
[2020-06-27] MEDS ORDERED: PNEUMOCOCCAL VACCINE 0.5 ML IMVAC ONE (08:00)
[2020-06-27] MEDS ORDERED: FUROSEMIDE 40 MG/4 ML VIAL IV SCH (09:00)
[2020-06-27] MEDS ORDERED: CEFEPIME 1 GM/VIAL IV SCH (09:00)
[2020-06-27] MEDS: Enoxaparin 120 MG/0.8 ML SYR SQ SCH ×2 (09:15→22:03)
[2020-06-27] MEDS: CEFEPIME/SWI 1gm 10 ML IV SCH ×2 (09:16→22:30)
--- NOTE | 2020-06-27 13:02 | ECHO ---
HEIGHT: 6 ft 1 in WEIGHT: 250 lb 0 oz DATE OF STUDY: 06/27/[address]: Siddharth Montalvo MD 2-DIMENSIONAL: YES M.MODE: YES DOPPLER: YES COLOR FLOW: YES TDS: NO PORTABLE: NO DEFINITY: NO BUBBLE STUDY: NO DIAGNOSIS: CONGESTIVE HEART FAILURE/ ELEVATED TROPONIN CARDIAC HISTORY: CATHERIZATION: NO SURGERY: NO PROSTHETIC VALVE: NO PACEMAKER: NO MEASUREMENTS (cm) DIASTOLIC (NORMALS) SYSTOLIC (NORMALS) IVSd 1.1 (0.6-1.2) LA Diam 3.4 (1.9-4.0) LVEF 55-60% LVIDd 2.9 (3.5-5.7) LVIDs 1.8 (2.0-3.5) %FS 38% LVPWd 1.2 (0.6-1.2) Ao Diam 3.5 (2.0-3.7) 2 DIMENSIONAL ASSESSMENT: RIGHT ATRIUM: NORMAL LEFT ATRIUM: RIGHT VENTRICLE: DILATED RIGHT VENTRICCLE DEPRESSED FUNCTION. LEFT VENTRICLE: TRICUSPID VALVE: MODERATE TRICUSPID REGURGITATION MITRAL VALVE: PULMONIC VALVE: NORMAL AORTIC VALVE: THICKENED, NO AORTIC STENOSIS PERICARDIAL EFFUSION: NONE AORTIC ROOT: LEFT VENTRICULAR WALL MOTION: NORMAL. DOPPLER/COLOR FLOW: SEE BELOW COMMENTS: NORMAL LEFT VENTRICULAR EJECTION FRACTION 55-60% WITH NORMAL WALL MOTION. DILATED RIGHT VENTRICLE WITH MODERATELY DEPRESSED FUNCTION. SEVERE PULMONARY HYPERTENSION WITH RIGHT VENTRICULAR SYSTOLIC PRESSURE GREATER THAN 90mmHg. MODERATE TRICUSPID REGURGITATION. TECHNOLOGIST: MARINA CUELLO
--- NOTE | 2020-06-27 13:18 | RAD REPORT ---
EXAM DESCRIPTION: CT - Chest For Pe Angio - 06/27/2020 1:04 pm CLINICAL HISTORY: Shortness of breath COMPARISON: None. TECHNIQUE: Dynamically enhanced axial 3 mm thick images of the chest were obtained during administra tion of <100> mL Isovue 370 IV contrast. Coronal and oblique reconstruction images were generated and reviewed. Exam utilizes a protocol for optimal evaluation of pulmonary arterial tree. Maximum intensity projections 3D imaging was utilized All CT scans are performed using dose optimization technique as appropriate and may include automated exposure control or mA/KV adjustment according to patient size. FINDINGS: A pulmonary embolus is not seen. A thoracic aortic aneurysm is not noted. Small bilateral pleural effusions. A pericardial effusion is not seen. Mild bilateral interstitial lung opacities IMPRESSION: Negative for a pulmonary embolism. Mild CHF
[2020-06-27] MEDS: FUROSEMIDE 40 MG/4 ML VIAL IV SCH ×2 (15:00→22:01)
--- NOTE | 2020-06-27 20:39 | P.PN ---
Subjective Date of Service: 06/27/20 Primary Care Provider: Dr. Jefferson Chief Complaint: NSTEMI Subjective: No new changes (patient states he feels "okay". Not very forthocoming with information. hasn't been ambulating well at home, at times walking on his knees, had a fall a few weeks ago as well. Not very specific if swelling is worse recently or not) Review of Systems 10-point ROS is otherwise unremarkable Physical Examination - Vital Signs Temperature: 96.8 F Blood Pressure: 113/76 Pulse: 94 Respirations: 20 Pulse Ox (%): 98 Assessment & Plan Physician Review Additional Text: Physical Exam: General: Alert, In no apparent distress, Oriented x3 Pulm: diminished, bibasilar crackles CV: RRR, 2+pitting edema in lower extremities Abd: soft, NTND Ext: 2+ pitting edema, erythema and warmth bilaterally, multiple superficial ulcerations / scabs on lower extremities. b/l venous stasis changes Problem List: NSTEMI suspect demand ischemia with underlying undiagnosed CHF Cellulitis left lower extremity Superficial venous thrombosis right greater saphenous vein Weakness, debility, multiple falls multiple wounds DM2 Hypertension Hyperlipidemia monitor on telemetry, trend troponins. - denies chest pain increase IV lasix to 60mg BID, fluid restriction cardiology consulted TTE - severe pulm HTN, dilated right heart, mod-severe TR continue full dose lovenox - has superficial VT, and for NSTEMI CTA to r/o PE, if negative, will need right/left heart cath on Tuesday Superficial venous thrombosis right greater saphenous vein: Very close to the junction of the common femoral vein, high risk for DVT/PE. Continue with full- dose Lovenox at this time. PT consulted. pt lives alone, unable to get up to his chair at times, likely needs SNF on discharge sliding scale insulin obtain and continue home meds wound care consulted VTE: therapeutic lovenox Code: full Dispo: hospitalization >2 days, likely will need SNF on discharge Time Spent Managing Pts Care (In Minutes): 35
[2020-06-28] MEDS: VANCOMYCIN 2 GM in NA CHLORIDE 0.9% 500 ML IVPB SCH (01:47)
[2020-06-28] MEDS ORDERED: VANCOMYCIN 1 GM/VIAL ONE ×2 (02:02→02:20)
[2020-06-28] MEDS ORDERED: NA CHLORIDE 0.9% 250 ML ONE (02:03)
[2020-06-28] MEDS ORDERED: VANCOMYCIN 500 MG/VIAL ONE (02:18)
[2020-06-28 07:06] LABS: Absolute Lymphocytes (CBC) 0.9 K/uL (0.7-4.9); Basophils % 0.4 % (0-1.3); Hematocrit 50.2 % (39.6-49.0); Lymphocytes % 11.7 % (15.3-44.8); MPV 9.3 fL (7.6-11.3)
[2020-06-28 07:26] LABS: Albumin 2.4 g/dL (3.4-5.0); Bilirubin Total 1.3 mg/dL (0.2-1.0); Potassium 4.9 mmol/L (3.5-5.1); Protein, Total 8.6 g/dL (6.4-8.2)
[2020-06-28] MEDS: INSULIN -REGULAR HUMAN 50 UNIT/0.5 ML ML SQ SCH ×4 (07:30→20:10)
[2020-06-28] MEDS: Enoxaparin 120 MG/0.8 ML SYR SQ SCH ×2 (09:00→20:48)
[2020-06-28] MEDS: CEFEPIME/SWI 1gm 10 ML IV SCH ×2 (09:33→20:42)
[2020-06-28] MEDS: FUROSEMIDE 40 MG/4 ML VIAL IV SCH ×2 (09:34→20:43)
--- NOTE | 2020-06-28 21:14 | P.PN ---
Subjective Date of Service: 06/28/20 Primary Care Provider: Dr. Jefferson Chief Complaint: NSTEMI Subjective: No new changes (reports feeling ok, upset that he can't find urinal at times and has to urinate in bed, breathing ok, feels swelling is improving in legs) Review of Systems 10-point ROS is otherwise unremarkable Physical Examination - Vital Signs Temperature: 98.2 F Blood Pressure: 103/70 Pulse: 100 Respirations: 19 Pulse Ox (%): 94 Assessment & Plan Physician Review Additional Text: Physical Exam: General: Alert, In no apparent distress, Oriented x3 Pulm: diminished, bibasilar crackles CV: RRR, 1+pitting edema in lower extremities Abd: soft, NTND Ext: 1+ pitting edema, erythema and warmth bilaterally (more on L), multiple superficial ulcerations / scabs on lower extremities. b/l venous stasis changes Problem List: NSTEMI suspect demand ischemia with underlying undiagnosed CHF Cellulitis left lower extremity Superficial venous thrombosis right greater saphenous vein Weakness, debility, multiple falls multiple wounds DM2 Hypertension Hyperlipidemia continue IV lasix to 60mg BID, fluid restriction; not getting accurate I/O's, will discuss with patient regarding possible gerard temporarily TTE - severe pulm HTN, dilated right heart, mod-severe TR continue full dose lovenox - has superficial VT, and for NSTEMI CTA negative for PE Cardiology consulted - recommend right/left heart cath on Tuesday Superficial venous thrombosis right greater saphenous vein: Very close to the junction of the common femoral vein, high risk for DVT/PE. Continue with full- dose Lovenox at this time. PT consulted. pt lives alone, unable to get up to his chair at times, likely needs SNF on discharge, pt reluctant started on cefepime & vanc for cellulitis, will dc cefepime at this time sliding scale insulin wound care consulted VTE: therapeutic lovenox Code: full Dispo: hospitalization >2 days, likely will need SNF on discharge Time Spent Managing Pts Care (In Minutes): 35
[2020-06-29 00:46] LABS: Urine Appearance CLEAR; Urine Bilirubin NEGATIVE (NEG); Urine Blood 3+ (NEG); Urine Color YELLOW; Urine Glucose NEGATIVE (NEG); Urine Protein NEGATIVE (NEG); Urine Specific Gravity <=1.005 (1.005-1.030)
[2020-06-29 01:03] LABS: Urine Microscopic Reflex ORDER UMIC
[2020-06-29] MEDS: VANCOMYCIN 2 GM in NA CHLORIDE 0.9% 500 ML IVPB SCH (01:12)
[2020-06-29 02:02] LABS: Urine Bacteria 20-50 /HPF (NONE SEEN); Urine Mucus 1+ /HPF (NONE SEEN); Urine RBC 20-50 /HPF (NONE SEEN)
[2020-06-29 06:32] VITALS: BMI 34.2
[2020-06-29 07:00] LABS: Absolute Lymphocytes (CBC) 0.8 K/uL (0.7-4.9); Basophils % 0.2 % (0-1.3); Hematocrit 45.8 % (39.6-49.0); Lymphocytes % 8.3 % (15.3-44.8); MPV 8.9 fL (7.6-11.3); RBC Red Blood Cell Count 5.14 M/uL (4.33-5.43)
[2020-06-29 07:10] LABS: Magnesium 1.9 mg/dL (1.8-2.4); Potassium 4.9 mmol/L (3.5-5.1)
[2020-06-29] MEDS: INSULIN -REGULAR HUMAN 50 UNIT/0.5 ML ML SQ SCH ×4 (07:30→21:00)
[2020-06-29] MEDS: FUROSEMIDE 40 MG/4 ML VIAL IV SCH ×2 (08:14→21:16)
[2020-06-29] MEDS: Enoxaparin 120 MG/0.8 ML SYR SQ SCH ×3 (08:15→21:15)
[2020-06-29] MEDS: ACETAMINOPHEN 500 MG TAB PO PRN ×2 (08:32→15:56)
--- NOTE | 2020-06-29 13:04 | P.PN ---
Subjective Date of Service: 06/29/20 Primary Care Provider: Dr. Jefferson Chief Complaint: NSTEMI Subjective: Improving (swelling and redness is improving per patient, otherwise without complaints. still feeling weak, no chest pain, no SOB) Review of Systems 10-point ROS is otherwise unremarkable Physical Examination - Vital Signs Temperature: 97 F Blood Pressure: 102/74 Pulse: 97 Respirations: 18 Pulse Ox (%): 93 Assessment & Plan Physician Review Additional Text: Physical Exam: General: Alert, In no apparent distress, Oriented x3 Pulm: diminished, bibasilar crackles CV: RRR, 1+pitting edema in lower extremities to knees Abd: soft, NTND Ext: erythema and warmth bilaterally (more on L) improving, b/l venous stasis changes, multiple superficial wounds b/l toes dusky appearing and cold to touch, worse on R. large callus on b/l 1st toes as well Problem List: NSTEMI suspect demand ischemia with underlying undiagnosed CHF Cellulitis left lower extremity Superficial venous thrombosis right greater saphenous vein venous stasis changes chronic lymphedema Weakness, debility, multiple falls multiple wounds DM2 Hypertension Hyperlipidemia continue IV lasix to 60mg BID, fluid restriction; gerard placed for strict I/O's on 06/28 TTE - severe pulm HTN, dilated right heart, mod-severe TR continue full dose lovenox - has superficial VT, and for NSTEMI - last dose tonight CTA negative for PE Cardiology consulted - recommend right/left heart cath tomorrow Superficial venous thrombosis right greater saphenous vein: Very close to the junction of the common femoral vein, high risk for DVT/PE. Continue with full- dose Lovenox at this time. PT consulted. pt lives alone, unable to get up to his chair at times, likely needs SNF on discharge, pt reluctant at this time started on cefepime & vanc for cellulitis, will dc cefepime sliding scale insulin wound care consulted obtain b/l x-rays of feet, b/l arterial doppler to eval flow - intact sensation bilaterally but dusky appearance and cold to touch VTE: therapeutic lovenox Code: full Dispo: hospitalization >2 days, likely will need SNF on discharge Time Spent Managing Pts Care (In Minutes): 35
--- NOTE | 2020-06-29 15:15 | RAD REPORT ---
EXAM DESCRIPTION: US - Lower Extremity Arterial Bilat - 06/29/2020 2:52 pm CLINICAL HISTORY: cold toes, wounds COMPARISON: None. TECHNIQUE: Doppler evaluation was performed of the bilateral lower extremity arterial tree. Waveform s were obtained along the length of each lower extremity. Visual inspection of the lower extremity ar terial tree performed. FINDINGS: Triphasic waveform patterns were seen along the length of each lower extremity. Scattered atherosclerotic changes seen in the mims of the arterial tree without occlusion or flow restricting lesion identifiable. IMPRESSION: Mild bilateral lower extremity atherosclerotic change. No occlusion, flow restricting lesion or significant disease otherwise noted.
--- NOTE | 2020-06-29 16:16 | RAD REPORT ---
EXAM DESCRIPTION: RAD - Foot Right 3 View - 06/29/2020 3:53 pm CLINICAL HISTORY: eval for possible osteo on 1st toe, large callus COMPARISON: No comparisons, no remote imaging FINDINGS: Large punched-out lytic lesions are present in the medial margin of the first MTP joint in volving the metatarsal head medial base of the proximal phalanx. Smaller punched-out lesions are pres ent in the medial margin of the proximal and distal first phalanges at the IP joint. There significan t bone loss change along the entire articular surface of the first toe IP joint. Subtle punched-out l esion is seen in the medial margin of the first metatarsal base. Prominent soft tissue changes are pr esent at the areas of bone loss. Bone loss changes are present involving the middle and distal phalanges of the third toe with subtle bony changes to the medial margin of the fourth and fifth proximal phalanges at the base. Advanced changes of gout would be the most likely etiology and can be correlated with any prior histo ry or corresponding lab abnormalities. Patient has significant soft tissue swelling of the distal foot. A large spur is present at the Achil les attachment. IMPRESSION: Extensive gout soft tissue changes and bone destruction involving the first toe IP joint and medial margin of the first MTP joint. Additional gout destructive changes are evident at the DIP joint of the third toe. There are more sub tle probable gout changes involving the medial base first metatarsal and medial base fourth and fifth proximal phalanges.
--- NOTE | 2020-06-29 16:21 | RAD REPORT ---
EXAM DESCRIPTION: RAD - Foot Left 3 View - 06/29/2020 3:55 pm CLINICAL HISTORY: eval for possible osteo on 1st toe, large callus COMPARISON: No remote imaging FINDINGS: Small punched-out lesion present in the medial base first proximal phalanx with moderate s ize punched-out lesion in the medial margin first metatarsal head. There is an associated soft tissue mass density as well. Soft tissue density is present medial margin of the IP joint of the first toe without punched-out lesion or other erosive bone process. First MTP joint and IP joint changes are typical for gout. Bone loss changes are present in the medial and lateral margins of the second middle phalanx. Faint l ucent lines traverse the heads of the second and fourth proximal phalanges. No associated bone erosio n or destruction. There is questionable lucent fracture change involving the base of the fifth proxim al phalanx without bone erosion or destructive component. Prominent soft tissue swelling present of the distal foot. A large spur is present at the Achilles at tachment. No foreign body in the soft tissues. IMPRESSION: Prominent gout changes involve the medial margin of the first MTP joint. Soft tissue adeline nges medial margin of the first toe IP joint are probably gout as well. Faint lucent line suspicious for fracture are seen in the second proximal phalanx head, fourth proxim al phalanx head and fifth proximal phalanx base. These do not have associated bone loss changes.
[2020-06-30] MEDS: INSULIN -REGULAR HUMAN 50 UNIT/0.5 ML ML SQ SCH ×5 (00:33→20:40)
[2020-06-30] MEDS: VANCOMYCIN 2 GM in NA CHLORIDE 0.9% 500 ML IVPB SCH (02:00)
[2020-06-30 04:06] LABS: Absolute Lymphocytes (CBC) 0.7 K/uL (0.7-4.9); Basophils % 0.4 % (0-1.3); Lymphocytes % 8.5 % (15.3-44.8); MPV 9.2 fL (7.6-11.3); RBC Red Blood Cell Count 4.92 M/uL (4.33-5.43)
[2020-06-30 04:23] LABS: Albumin 2.1 g/dL (3.4-5.0); Phosphorus 5.1 mg/dL (2.5-4.9); Potassium 5.1 mmol/L (3.5-5.1); Uric Acid 8.8 mg/dL (3.5-7.2)
[2020-06-30] MEDS ORDERED: NACHLORIDE 0.45% 0 ML IV ONE (05:10)
[2020-06-30] MEDS ORDERED: NA CHLORIDE 0.9% 1,000 ML ONE (06:08)
[2020-06-30] MEDS ORDERED: D50W 25 GM/50 ML SYRINGE IV ONE (08:03)
[2020-06-30] MEDS: FUROSEMIDE 40 MG/4 ML VIAL IV SCH ×2 (08:15→20:43)
--- NOTE | 2020-06-30 08:54 | RAD REPORT ---
EXAM DESCRIPTION: RAD - Chest Single View - 06/30/2020 5:26 am CLINICAL HISTORY: pulm edema, chf Chest pain. COMPARISON: Chest Single View dated 06/26/2020 FINDINGS: Portable technique limits examination quality. Mild interstitial pulmonary edema is again seen. This appears mildly improved since comparative study . The heart is mildly enlarged in size. No displaced fractures. IMPRESSION: Mild improvement in CHF pattern is seen since comparative study.
[2020-06-30] MEDS: ACETAMINOPHEN 500 MG TAB PO PRN (12:19)
[2020-06-30] MEDS ORDERED: HEPA 1000U/500MLS 2,000 UNIT/1,000 ML BAG IV ONE (13:10)
[2020-06-30] MEDS ORDERED: VANCOMYCIN 2 GM in NA CHLORIDE 0.9% 500 ML IVPB SCH (14:00)
[2020-06-30] MEDS ORDERED: HEPARIN 5000 UNIT/ML 1 ML VIAL ONE (17:26)
[2020-06-30] MEDS ORDERED: ATROPINE SULF 1 MG/10 ML SYR IV ONE (17:27)
[2020-06-30] MEDS ORDERED: VERAPAMIL HCL 10 MG/4 ML VIAL IV ONE (17:27)
[2020-06-30] MEDS ORDERED: FENTANYL CITR 100 MCG/2 ML ONE (17:27)
[2020-06-30] MEDS ORDERED: MIDAZOLAM HCL 2 MG/2 ML INJ ONE (17:27)
[2020-06-30] MEDS ORDERED: NA CHLORIDE 0.9% 500 ML ONE (17:43)
--- NOTE | 2020-06-30 18:08 | P.PN ---
Subjective Date of Service: 06/30/20 Primary Care Provider: Dr. Jefferson Chief Complaint: NSTEMI Subjective: No new changes (Feels lower extremity swelling has improved, denies shortness of breath/chest pain) Review of Systems 10-point ROS is otherwise unremarkable Physical Examination - Vital Signs Temperature: 97.9 F Blood Pressure: 101/76 Pulse: 90 Respirations: 18 Pulse Ox (%): 91 Assessment & Plan Physician Review Additional Text: Physical Exam: General: Alert, In no apparent distress, Oriented x3 Pulm: diminished, bibasilar crackles CV: RRR, 1+pitting edema in lower extremities to knees Abd: soft, NTND Ext: erythema and warmth bilaterally (more on L) improving, b/l venous stasis changes, multiple superficial wounds b/l toes dusky appearing and cold to touch, worse on R. large callus on b/l 1st toes as well Problem List: NSTEMI suspect demand ischemia with underlying undiagnosed CHF bilateral lower extremity cellulitis (Left > Right) Superficial venous thrombosis right greater saphenous vein venous stasis changes chronic lymphedema Weakness, debility, multiple falls multiple wounds DM2 Hypertension Hyperlipidemia BP on low end, decrease lasix 60mg BID -> 40mg BID, gerard placed for strict I/O's on 06/28 TTE - severe pulm HTN, dilated right heart, mod-severe TR restart full dose lovenox after procedure- has superficial VT, and for NSTEMI - held for cardiac cath CTA negative for PE Cardiology consulted - recommend right/left heart cath today Superficial venous thrombosis right greater saphenous vein: Very close to the junction of the common femoral vein, high risk for DVT/PE. Continue with full- dose Lovenox at this time. PT consulted. pt lives alone, unable to get up to his chair at times, likely needs SNF on discharge, pt reluctant at this time started on cefepime & vanc for cellulitis, will dc cefepime sliding scale insulin wound care consulted obtain b/l x-rays of feet, b/l arterial doppler to eval flow - intact sensation bilaterally but dusky appearance and cold to touch VTE: therapeutic lovenox Code: full Dispo: hospitalization >2 days, likely will need SNF on discharge Time Spent Managing Pts Care (In Minutes): 35
[2020-06-30] MEDS ORDERED: ACETYLCYST 20% 4 ML VIAL IH ONE (18:16)
[2020-06-30] MEDS ORDERED: NA CHLORIDE 0.9% 100 ML IV ONE (18:27)
[2020-06-30 18:34] LABS: Arterial Blood Carboxyhemoglob 1.4 % (0-1.5); Blood Gas Oxyhemoglobin 58.4 % (94-97); Blood O2 Saturation 59.7 % (92-98.5)
--- NOTE | 2020-06-30 19:03 | CON ---
Date of Consultation: 06/29/2020 Reason For Consultation: Congestive heart failure. History Of Present Illness: This is a 65-year-old obese male who presented to the emergency room wit h significant lower extremity edema and some shortness of breath, history of diabetes, hypertension, dyslipidemia. Denies having any active chest pain, although he had mildly elevated troponin and sign ificant orthopnea and lower extremity edema. An echo was performed the same day and that showed sign ificant RV failure, significant pulmonary hypertension, normal LV function. Past Medical History: As outlined above in HPI. Medications: Refer consultation sheet for detailed list. Allergies: NO KNOWN DRUG ALLERGIES. Family History: No premature coronary artery disease or cancer. Social History: He does not smoke or drink. Does not use any drugs. Review of Systems: All systems reviewed. They were negative except for mentioned in the HPI. Physical Examination: Vital Signs: Temperature is 96.7, breathing at 20, blood pressure is 113/76, saturating 98%. General: Pleasant elderly male, in no distress. Head and Neck: Pupils are equal, reactive to light. Intact eye movements. Mild JVD. Lungs: Rhonchi bilaterally. No accessory muscle use or muscle retraction. Heart: Regular rate and rhythm. No extra sounds. Abdomen: Soft, nontender. Bowel sounds positive. No organomegaly. No tenderness. Extremities: More than 4+ edema bilaterally all the way up to the thigh. Neurologic: Alert, oriented x3. No acute focal deficit appreciated. Lymph Nodes: No cervical lymphadenopathy. Investigations: Sodium 136, BUN 31, creatinine 1.4. Troponin 0.1. Assessment And Plan: 1.RV failure with severe pulmonary hypertension and resultant fluid overload. Recommend Lasix 60 mg IV q.12 hours. Monitor BUN, creatinine, electrolytes, and recommend left and right heart catheteriz ation to further evaluate the etiology behind RV failure and severe pulmonary hypertension. 2.Severe pulmonary hypertension, needs the right heart catheterization and possible test to determine the etiology of pulmonary hypertension and treat accordingly. Also recommend CTA of the lungs, PE protocol to rule out pulmonary embolism. Discussed with primary hospitalist taking care o f the patient. 3.Borderline elevated troponin suggestive of non ST-elevation myocardial infarction. Plan for left and right heart catheterization early next week. SR/MODL Voice ID: [id number] Report ID: [id number]
--- NOTE | 2020-06-30 19:03 | CON ---
History Of Present Illness: The patient is a 65-year-old male with significant past medical history of hypertension, diabetes mellitus type 2, hyperlipidemia, comes to emergency room with cellulitis of lower extremity and stasis ulcers. The patient also had a fall and has scraped both knees causing h im to have wounds to the knee area. The patient is not able to give history. Most of the history wa s obtained through medical records and staff. The patient is currently getting vancomycin. Past Medical History: Hypertension, diabetes mellitus, hyperlipidemia, cataract surgery, appendectom y. Past Surgical History: Appendectomy. Social History: Nonsmoker, nondrinker. Family History: Noncontributory. Medications: Vancomycin. See MAR for other medications. Allergies: NO KNOWN DRUG ALLERGIES. Review of Systems: Unable to obtain. Physical Examination: General: This is a 65-year-old male, lying in bed, not in any acute cardiopulmonary distress. Vital Signs: Temperature 98.8, pulse 96, respirations 18, blood pressure 101/70. HEENT: Unremarkable. Neck: Supple. Lungs: Basal crackles. Heart: S1, S2. Regular. Abdomen: Soft, nontender. Bowel sounds present. Extremities: 2+ edema with erythematous changes on both legs and ulceration noted. Large scrape wou nds are noted on both knee region. Laboratory Data: WBC 8.7, hemoglobin 13.9, platelets are 228. Chemistry shows sodium 131, potassium 5.1, chloride 96, bicarb 29, BUN 49, creatinine 1.5, glucose is 94. Albumin level is 2.1. Micro da ta, urine culture showing no growth. Chest x-ray done today shows that the patient has mild improvem ent of CHF. Assessment And Plan: This is a 65-year-old male with bilateral lower extremity cellulitis and stasis ulceration and stasis dermatitis. The patient is currently being treated with vancomycin. We will recommend to continue for total of 10 days. Can be switched to oral antibiotic on discharge. The mitch gross has significant past medical history of diabetes mellitus, diabetic neuropathy. Continue curre nt treatment. We will follow the patient as needed. Thank you Dr. Montalvo for consult. NF/MODL Voice ID: [id number] Report ID: [id number]
--- NOTE | 2020-06-30 20:33 | OP ---
Date of Procedure: 06/30/2020 Surgeon: PEÑA CMAACHO Procedure Performed: 1.Selective coronary angiogram. 2.Left heart catheterization. 3.Right heart catheterization with thermodilution cardiac output measurements. Access: 1.Right femoral artery 4-Comoran closed with manual pressure. 2.Right femoral vein 6, 7-Comoran closed with manual pressure. Indications: 1.Severe pulmonary hypertension on echo. 2.Non-ST elevation myocardial infarction. Description Of Procedure: After risks, benefits, and alternatives were explained, patient agreed to proceed and signed informed consent. The patient [facility], prepped and draped in usual sterile fashion. We accessed the right femoral artery under fluoro scopy guidance and ultrasound and placed a 4-Comoran pinnacle sheath. We used a micropuncture kit for that and then accessed the right femoral vein using same technique and placed a 7-Comoran pinnacle sh eat. I then took a 4-Comoran JL4 catheter into the aortic root, engaged left main, took standard vie ws, exchanged for 4-Comoran JR4 catheter, engaged the RCA, took standard views and then I took the cat heters out and inserted femoral vein access, took a balloon tip 7-Comoran [place] catheter. RA pressure was recorded along with waveform and then to the RV pressure waveform recorded and PA pressure wavefo rm were recorded and subsequently took waveform were recorded. Then, the catheter tip was pulled to the main pulmonary artery and then obtained a thermodilution cardiac output and then remov ed the [place]st catheter. Both sheaths were removed and manual pressure was applied with good hemostasis . Findings: 1.Left main is large with mild disease. 2.LAD, diffuse disease 10% to 20% along the diagonals as well. 3.Left circumflex WATER/WASTEWATER ENGINEER in the proximal portion with a high takeoff OM that has mild diffuse disease, but it supplies the circ distally and fills back all the way about 10 mm below the WATER/WASTEWATER ENGINEER area. This co uld be a ramus intermedius and more high OM vessel. 4.RCA is a small over mid 90% stenosis. Left heart catheterization was done by advancing the JR4 ca theter over the wire into the LV. LVEDP was measured at 40 mmHg and upon pullback there was no diffe rence in gradient. Right Heart Catheterization Findings: RA pressure was 30 mmHg. RV pressure was 103/60 with a mean o f 39. PA pressure was 101/40 with mean of 63, pulmonary wedge pressure was 10. LVEDP was 14. Cardi ac output was 4.22. The pulmonary vascular resistance or PVR was 12.5 Wood Units. Conclusions: Severe two-vessel coronary artery disease as above. Severe pulmonary arterial hypertension with a mean PA pressure of 63 and pulmonary vascular resistanc e of 12.5 Wood units. Recommendation: Transfer to higher level of care for aggressive management of pulmonary arterial hyp ertension, RV failure, and probably circ and the RCA which were not done today due to the chronic kidney disease. SR/MODL Voice ID: [id number] Report ID: [id number]
[2020-06-30] MEDS: Enoxaparin 120 MG/0.8 ML SYR SQ SCH (21:00)
[2020-06-30] MEDS: MEDIHONEY 44 ML TOPICAL TUBE TOP SCH (21:47)
[2020-07-01 04:12] LABS: Absolute Lymphocytes (CBC) 0.6 K/uL (0.7-4.9); Basophils % 0.3 % (0-1.3); Hematocrit 46.2 % (39.6-49.0); Lymphocytes % 6.1 % (15.3-44.8); MPV 9.6 fL (7.6-11.3); RBC Red Blood Cell Count 5.14 M/uL (4.33-5.43)
[2020-07-01 04:20] LABS: Albumin 2.2 g/dL (3.4-5.0); Bilirubin Total 1.1 mg/dL (0.2-1.0); Magnesium 1.9 mg/dL (1.8-2.4); Phosphorus 4.2 mg/dL (2.5-4.9); Protein, Total 7.7 g/dL (6.4-8.2)
[2020-07-01] MEDS ORDERED: VANCOMYCIN 2 GM in NA CHLORIDE 0.9% 500 ML IVPB SCH (06:00)
[2020-07-01] MEDS: INSULIN -REGULAR HUMAN 50 UNIT/0.5 ML ML SQ SCH ×4 (07:30→21:00)
[2020-07-01] MEDS: Enoxaparin 120 MG/0.8 ML SYR SQ SCH (09:00)
[2020-07-01] MEDS: MEDIHONEY 44 ML TOPICAL TUBE TOP SCH (09:00)
[2020-07-01] MEDS: FUROSEMIDE 40 MG/4 ML VIAL IV SCH ×2 (10:21→21:14)
--- NOTE | 2020-07-01 10:38 | P.PN ---
Subjective Date of Service: 07/01/20 Primary Care Provider: Dr. Jefferson Chief Complaint: NSTEMI Patient seen and examined at bedside, unable to wake from sleep. Review of Systems 10-point ROS is otherwise unremarkable Physical Examination - Vital Signs Temperature: 96.8 F Blood Pressure: 122/78 Pulse: 100 Respirations: 18 Pulse Ox (%): 97 - Physical Exam General: In no apparent distress, Other (unable to awake from sleep ) HEENT: Atraumatic, Normocephalic, PERRLA Neck: Supple, 2+ carotid pulse no bruit, JVD not distended Respiratory: Clear to auscultation bilaterally Cardiovascular: Regular rate/rhythm, Edema Capillary refill: <2 Seconds Gastrointestinal: Normal bowel sounds, Soft and benign Integumentary: Other (bilateral lower extremitiy cellulitis and stasis dermatitis. No open wounds at this time. Right arm hematoma. ) - Studies Laboratory Last Values WBC 9.60 K/uL (4.3-10.9) 06/26/20 18:40 RBC 5.55 M/uL (4.33-5.43) H 06/26/20 18:40 Hgb 15.7 g/dL (13.6-17.9) 06/26/20 18:40 Hct 49.4 % (39.6-49.0) H 06/26/20 18:40 MCV 88.9 fL (80-100) D 06/26/20 18:40 MCH 28.2 pg (27.0-35.0) D 06/26/20 18:40 MCHC 31.7 g/dL (32.0-36.0) L 06/26/20 18:40 RDW 15.7 % (12.1-15.2) H 06/26/20 18:40 Plt Count 248 K/uL (152-406) 06/26/20 18:40 MPV 8.6 fL (7.6-11.3) 06/26/20 18:40 Neutrophils % 79.8 % (41.7-73.7) H 06/26/20 18:40 Lymphocytes % 8.0 % (15.3-44.8) L 06/26/20 18:40 Monocytes % 11.0 % (3.3-12.3) 06/26/20 18:40 Eosinophils % 0.7 % (0-4.4) 06/26/20 18:40 Basophils % 0.5 % (0-1.3) 06/26/20 18:40 Absolute Neutrophils 7.7 K/uL (1.8-8.0) 06/26/20 18:40 Absolute Lymphocytes 0.8 K/uL (0.7-4.9) 06/26/20 18:40 Absolute Monocytes 1.1 K/uL (0.1-1.3) 06/26/20 18:40 Absolute Eosinophils 0.1 K/uL (0-0.5) 06/26/20 18:40 Absolute Basophils 0.0 K/uL (0-0.5) 06/26/20 18:40 PT 16.6 SECONDS (9.5-12.5) H 06/26/20 18:40 INR 1.44 06/26/20 18:40 Sodium 137 mmol/L (136-145) 06/26/20 18:40 Potassium 5.1 mmol/L (3.5-5.1) 06/26/20 18:40 Chloride 103 mmol/L (98-107) 06/26/20 18:40 Carbon Dioxide 26 mmol/L (21-32) 06/26/20 18:40 BUN 29 mg/dL (7-18) H 06/26/20 18:40 Creatinine 1.42 mg/dL (0.55-1.3) H 06/26/20 18:40 Estimated GFR 50 mL/min (=/>90) L 06/26/20 18:40 Glucose 96 mg/dL (74-106) 06/26/20 18:40 Calcium 8.3 mg/dL (8.5-10.1) L 06/26/20 18:40 Magnesium 2.4 mg/dL (1.8-2.4) 06/26/20 18:40 Total Bilirubin 1.4 mg/dL (0.2-1.0) H 06/26/20 18:40 Direct Bilirubin 0.9 mg/dL (0-0.2) H 06/26/20 18:40 AST 30 U/L (15-37) 06/26/20 18:40 ALT 31 U/L (12-78) 06/26/20 18:40 Alkaline Phosphatase 122 U/L (45-117) H 06/26/20 18:40 Rapid Troponin I 0.10 ng/mL (0.0-0.045) H 06/26/20 18:40 NT-Pro-B Natriuret Pep 82924 pg/mL (<125) H 06/26/20 18:40 Serum Total Protein 8.3 g/dL (6.4-8.2) H 06/26/20 18:40 Albumin 2.5 g/dL (3.4-5.0) L 06/26/20 18:40 Globulin 5.8 g/dL (2.3-3.5) H 06/26/20 18:40 Albumin/Globulin Ratio 0.4 (1.1-1.8) L 06/26/20 18:40 SARS-CoV-2 RNA (RT-PCR) Negative (NEGATIVE) 06/26/20 21:15 Assessment And Plan - Plan Assessment: -Bilateral lower extremity cellulites and stasis dermatitis -DM type 2 -hepatitis Plan -recommend petroleum gel to be applied to lower extremities. Continue vanco for 10 days. start date 07/01 -medical management per primary team -continue to monitor CBC and BMP -continue to monitor for signs of infection. Plan of care discussed with Dr. Ellsworth. -
--- NOTE | 2020-07-01 16:44 | P.PN ---
Subjective Date of Service: 07/01/20 Primary Care Provider: Dr. Jefferson Chief Complaint: NSTEMI Patient has no new complaint. He denies any chest pain or shortness of breath. Physical Examination - Vital Signs Temperature: 96.9 F Blood Pressure: 119/75 Pulse: 99 Respirations: 16 Pulse Ox (%): 95 - Physical Exam General: Alert, In no apparent distress, Oriented x3 Neck: Supple, JVD not distended Respiratory: Clear to auscultation bilaterally, Normal air movement Cardiovascular: Regular rate/rhythm, Edema (Bilateral lower extremities) Gastrointestinal: Normal bowel sounds, Soft and benign, Non-distended Musculoskeletal: Swelling (Bilateral lower extremities) Integumentary: Erythema (Bilateral lower extremities), Other (Venostasis derm atitis bilateral lower extremities, eschar on bilateral knees.) Neurological: Other (No focal motor deficit.) Assessment And Plan Physician Review Additional Text: Problem List: NSTEMI suspect demand ischemia with underlying undiagnosed CHF bilateral lower extremity cellulitis (Left > Right) Superficial venous thrombosis right greater saphenous vein venous stasis changes chronic lymphedema Weakness, debility, multiple falls multiple wounds DM2 Hypertension Hyperlipidemia Continue current dose of Lasix. Soto placed for strict I/O's on 06/28 TTE - severe pulm HTN, dilated right heart, mod-severe TR. Cardiac catheterization confirms severe pulmonary hypertension. Dr. Olivares recommend transfer to a tertiary center for aggressive pulmonary hypertension treatment. He was on Lovenox for NSTEMI which has been discontinued. CTA negative for PE Superficial venous thrombosis right greater saphenous vein: PT consulted. pt lives alone, unable to get up to his chair at times, likely needs SNF on discharge, pt reluctant at this time He is on vancomycin for lower extremity cellulitis. ID is following. Contain sliding scale insulin Local wound care. Arterial Doppler: Mild bilateral lower extremities atherosclerotic changes. No flow-limiting stenosis. VTE: Lovenox Code: full Transfer to [facility] initiated.
[2020-07-01] MEDS ORDERED: ENOXAPARIN 40 MG/0.4 ML SQ SCH (17:00)
--- NOTE | 2020-07-01 18:39 | P.DS ---
Admission Date: 06/26/20 Discharge Date: 07/03/20 Primary Care Provider: Dr. Jefferson Disposition: TRANSFER TO [facility] Discharge Condition: FAIR Reason for Admission: NSTEMI Consultations: Cardiology-Dr. Olivares. Brief History of Present Illness: 65-year-old woman with a history of hypertension, DM type 2, hyperlipidemia presented to the emergency department with a complaint of progressive swelling and redness of lower extremities, and weakness. Patient workup in the ED revealed BNP elevated to 14,000. Venous Doppler of the lower extremities demonstrated thrombosis in the right greater saphenous vein. Chest x-ray showed mild interstitial edema. His troponin elevated 0.1. Patient given full-dose of Lovenox, started on IV antibiotics and admitted for further management. Hospital Course: NSTEMI suspect demand ischemia with underlying undiagnosed CHF bilateral lower extremity cellulitis (Left > Right) Superficial venous thrombosis right greater saphenous vein venous stasis changes chronic lymphedema Weakness, debility, multiple falls multiple wounds DM2 Hypertension Hyperlipidemia Patient admitted to the medical floor. Troponin trended flat. Patient was seen and evaluated by cardiology-Dr. Olivares. Echocardiogram was performed which suggested depressed right ventricular function with severe pulmonary hypertension and moderate tricuspid regurgitation. Cardiac catheterization was performed which confirmed severe pulmonary hypertension. Dr. Olivares recommended transfer to a tertiary center for aggressive management of his severe pulmonary hypertension. Patient was also seen by infectious disease who concurred with the antibiotic treatment for lower extremity cellulitis. [facility] was contacted, patient has been accepted for transfer. Vitals are stable for transfer. Vital Signs/Physical Exam: Temp Pulse Resp BP Pulse Ox 96.9 F 99 H 16 119/75 95 07/01/20 16:44 07/01/20 16:44 07/01/20 16:44 07/01/20 16:44 07/01/20 16:44 General: Alert, In no apparent distress Neck: JVD not distended Respiratory: Clear to auscultation bilaterally, Normal air movement Cardiovascular: Regular rate/rhythm, Normal S1 S2, Edema (Lower extremities) Gastrointestinal: Soft and benign, Non-distended, No tenderness Musculoskeletal: Erythema (Bilateral lower extremities), Other Neurological: Other (No focal motor deficit.) Laboratory Data at Discharge: WBC 9.20 K/uL (4.3-10.9) 07/01/20 03:33 Hgb 14.4 g/dL (13.6-17.9) 07/01/20 03:33 Hct 46.2 % (39.6-49.0) 07/01/20 03:33 Plt Count 237 K/uL (152-406) 07/01/20 03:33 PT 16.6 SECONDS (9.5-12.5) H 06/26/20 18:40 INR 1.44 06/26/20 18:40 Sodium 132 mmol/L (136-145) L 07/01/20 03:33 Potassium 5.0 mmol/L (3.5-5.1) 07/01/20 03:33 BUN 49 mg/dL (7-18) H 07/01/20 03:33 Creatinine 1.38 mg/dL (0.55-1.3) H 07/01/20 03:33 Glucose 95 mg/dL (74-106) 07/01/20 03:33 Uric Acid 8.8 mg/dL (3.5-7.2) H 06/30/20 03:37 Phosphorus 4.2 mg/dL (2.5-4.9) 07/01/20 03:33 Magnesium 1.9 mg/dL (1.8-2.4) 07/01/20 03:33 Total Bilirubin 1.1 mg/dL (0.2-1.0) H 07/01/20 03:33 AST 25 U/L (15-37) 07/01/20 03:33 ALT 26 U/L (12-78) 07/01/20 03:33 Alkaline Phosphatase 147 U/L (45-117) H 07/01/20 03:33 Troponin I 0.10 ng/mL (0.0-0.045) H 06/27/20 06:08 Triglycerides 74 mg/dL (<150) 06/27/20 06:08 Cholesterol 89 mg/dL (<200) 06/27/20 06:08 HDL Cholesterol 24 mg/dL (40-60) L 06/27/20 06:08 Cholesterol/HDL Ratio 3.71 06/27/20 06:08 Home Medications: Atorvastatin Calcium [Lipitor] 5 mg PO DAILY 08/03/18 Glimepiride 4 mg PO BID 08/03/18 lisinopriL [Prinivil] 5 mg PO DAILY 08/03/18 Followup: NONE,NONE [Primary Care Provider] - Time spent managing pt's care (in minutes): 36
[2020-07-01 22:55] VITALS: O2SAT 97
[2020-07-02 01:42] VITALS: BP 130/80; TEMP 97.5
--- NOTE | 2020-07-02 02:21 | PN ---
Date of Progress Note: 07/01/2020 Mr. Ryder had a heart catheterization yesterday by Dr. Olivares. He was found to have a small RCA with 90% stenosis. He was found to have left main with mild disease, LAD with mild disease. He had a com pletely occluded circumflex with collaterals from the LAD and circumflex and RCA. Right heart cathet erization showed a PA pressure of 101/40. The plan was to transfer him to a higher level of care for pulmonary arterial hypertension. Overnight, the patient did well. His vital signs were stable. He was afebrile. His right groin site was intact. There was a plan to transfer him. His last creatin ine was 1.38. His last medication included vancomycin, aspirin, Lasix, Lovenox, insulin. He was jayson rly asymptomatic. His final diagnosis of pulmonary hypertension, coronary artery disease, hypertensi on, dyslipidemia, diabetes, multiple falls, venous stasis changes, chronic lymphedema, superficial ve nous thrombosis, cellulitis, and non-STEMI secondary to CAD and underlying pulmonary hypertension. H e had a CTA that was negative for pulmonary embolus. Arterial Doppler was fairly unremarkable. The patient was being transferred to [facility]. DOMENIC/GEM Voice ID: [id number] Report ID: [id number]
== END 2020-07-02 00:35 | disposition short-term general hospital (02) | DRG 281 ==
LOC: ER 17:49 → ERHOLD 21:18 → 4TH 23:58
PROVIDERS: ADMIT Hospitalist; ATTEND Internal Medicine
PROC: 4A023N7 Measurement of Cardiac Sampling and Pressure, Left Heart, Percutaneous Approach (ICD-10-PCS; principal; 2020-06-30)
PROC: B2111ZZ Fluoroscopy of Multiple Coronary Arteries using Low Osmolar Contrast (ICD-10-PCS; 2020-06-30)
DX: I11.0 Hypertensive heart disease with heart failure (principal); I21.A1 Myocardial infarction type 2; I82.811 Embolism and thrombosis of superficial veins of right lower extremity; L97.819 Non-pressure chronic ulcer of other part of right lower leg with unspecified severity; L97.829 Non-pressure chronic ulcer of other part of left lower leg with unspecified severity; L03.115 Cellulitis of right lower limb; L03.116 Cellulitis of left lower limb; I50.32 Chronic diastolic (congestive) heart failure; I50.812 Chronic right heart failure; I25.10 Atherosclerotic heart disease of native coronary artery without angina pectoris; I27.20 Pulmonary hypertension, unspecified; K75.9 Inflammatory liver disease, unspecified; I87.2 Venous insufficiency (chronic) (peripheral); E11.40 Type 2 diabetes mellitus with diabetic neuropathy, unspecified; I83.018 Varicose veins of right lower extremity with ulcer other part of lower leg; I83.028 Varicose veins of left lower extremity with ulcer other part of lower leg; I89.0 Lymphedema, not elsewhere classified; I07.1 Rheumatic tricuspid insufficiency; E78.5 Hyperlipidemia, unspecified; E66.9 Obesity, unspecified; S40.021A Contusion of right upper arm, initial encounter; Z60.2 Problems related to living alone; Z91.81 History of falling; Z90.49 Acquired absence of other specified parts of digestive tract; Z79.899 Other long term (current) drug therapy; Z68.34 Body mass index [BMI] 34.0-34.9, adult; Z79.84 Long term (current) use of oral hypoglycemic drugs; Z20.822 Contact with and (suspected) exposure to COVID-19
CPT/HCPCS: 36415; 71045; 71275; 80048; 80053; 80061; 80069; 80076; 80202; 81003; 81015; 82805; 82947; 83036; 83735; 83880; 84100; 84145; 84439; 84443; 84484; 84550; 85025; 85610; 87086; 87088; 93306; 93456; 93925; 93970; 96365; 96367; 96372; 96375; 97110; 97116; 97161; 97530; 99251; 99285; C1893; J0692; J1644; J1650; J1940; J2250; J2405; J3010; J3370; J7030; J7040; J7050; Q9967; U0003

== ENCOUNTER 2021-10-18 20:05 | Inpatient (IN) | payer OTHER ==
[2021-10-18 20:37] LABS: Arterial Blood Carboxyhemoglob 1.6 % (0-1.5); Blood Gas Oxyhemoglobin 91.9 % (94-97); Blood O2 Saturation 94.5 % (92-98.5)
[2021-10-18 20:39] LABS: Absolute Lymphocytes (CBC) 1.5 K/uL (0.7-4.9); Hematocrit 46.5 % (39.6-49.0); Lymphocytes % 16.6 % (15.3-44.8); MCV 92.2 fL (80-100); MPV 7.3 fL (7.6-11.3); RBC Red Blood Cell Count 5.04 M/uL (4.33-5.43)
[2021-10-18 20:55] LABS: Albumin 3.1 g/dL (3.4-5.0); Bilirubin Direct 0.1 mg/dL (0-0.2); Bilirubin Total 0.3 mg/dL (0.2-1.0); Magnesium 2.1 mg/dL (1.8-2.4); Potassium 4.1 mmol/L (3.5-5.1)
[2021-10-18 20:56] LABS: Troponin High Sensitivity 212.9 pg/mL (<58.9)
[2021-10-18 20:58] LABS: Protime INR 1.06
[2021-10-18 21:22] LABS: Urine Blood 3+ (Negative); Urine Glucose Negative (Negative); Urine Protein 1+ (Negative); Urine pH 5.5 (5.0-7.0)
--- NOTE | 2021-10-18 21:46 | RAD REPORT ---
EXAM DESCRIPTION: Cr Single View10/18/2021 8:59 pm CLINICAL HISTORY: Shortness of breath COMPARISON: June 2021 FINDINGS: Mild bilateral interstitial lung opacities. Heart is borderline enlarged IMPRESSION: Mild bilateral interstitial lung opacities may indicate mild interstitial pulmonary merlyn a
[2021-10-18] MEDS ORDERED: CEFTRIAXONE 1000 MG/VIAL ONE (21:47)
[2021-10-18] MEDS ORDERED: FUROSEMIDE 40 MG/4 ML VIAL ONE (21:47)
[2021-10-18] MEDS ORDERED: ASPIRIN 81 MG CHEWABLE TABLET ONE (21:47)
[2021-10-18] MEDS ORDERED: NA CHLORIDE 0.9% 50 ML ONE (21:47)
--- NOTE | 2021-10-18 21:54 | RAD REPORT ---
EXAM DESCRIPTION: CT - Chest For Pe Angio - 10/18/2021 9:43 pm CLINICAL HISTORY: sob COMPARISON: 2020 TECHNIQUE: Dynamically enhanced axial 3 mm thick images of the chest were obtained during administra tion of <100> mL Isovue 370 IV contrast. Coronal and oblique reconstruction images were generated and reviewed. Exam utilizes a protocol for optimal evaluation of pulmonary arterial tree. Maximum intensity projections 3D imaging was utilized All CT scans are performed using dose optimization technique as appropriate and may include automated exposure control or mA/KV adjustment according to patient size. FINDINGS: A pulmonary embolus is not seen. A thoracic aortic aneurysm is not noted. A pleural effusion is not seen. A pericardial effusion is not seen. Mild bilateral interstitial lung opacities IMPRESSION: Negative for a pulmonary embolism. Mild bilateral interstitial lung opacities may indicate mild interstitial pulmonary edema
--- NOTE | 2021-10-18 22:16 | ER ---
Nurse's Notes [facility] Name: George Ryder Age: 66 yrs Sex: Male : 1955 Arrival Date: 10/18/2021 Time: 20:09 Bed 4 Private MD: Diagnosis: Unspecified combined systolic (congestive) and diastolic (congestive) heart failure Presentation: 10/18 20:10 Chief complaint: EMS states: they were toned out for report of SOB and hypoxia pt O2 bb was 85% on RA on their arrival. Coronavirus screen: At this time, the client does not indicate any symptoms associated with coronavirus-19. Ebola Screen: No symptoms or risks identified at this time. Initial Sepsis Screen: Does the patient meet any 2 criteria? HR > 90 bpm. Yes Does the patient have a suspected source of infection? Yes: Productive cough/pneumonia If YES to both, name of provider notified: Boni Rosado MD. Risk Assessment: Do you want to hurt yourself or someone else? Patient reports no desire to harm self or others. Onset of symptoms was October 18, 2021. 20:10 Method Of Arrival: EMS: [facility] bb 20:10 Acuity: CYRUS 2 bb Triage Assessment: 22:12 General: Appears in no apparent distress. Behavior is calm, cooperative. Respiratory: as6 Onset: The symptoms/episode began/occurred gradually. Respiratory: the patient has mild shortness of breath. Historical: - Allergies: 20:26 No Known Allergies; bb - Home Meds: 20:26 mupirocin topical [Active]; baclofen 10 mg oral tab 1 tab nightly [Active]; Metoprolol bb Tartrate Oral [Active]; allopurinol 300 mg Oral tab 1 tab once daily [Active]; sildenafil oral [Active]; mirtazapine 15 mg Oral tab 1 tab nightly [Active]; - PMHx: 20:26 Diabetes - NIDDM; High Cholesterol; Hypertension; Prostate; Pulmonary hypertension; CHF;bb - Immunization history:: unknown. - Social history:: Smoking status: unknown. Screenin:04 Abuse screen: Denies threats or abuse. Denies injuries from another. Nutritional as6 screening: No deficits noted. Tuberculosis screening: No symptoms or risk factors identified. Fall Risk None identified. Assessment: 20:20 General: Appears in no apparent distress. Behavior is calm, cooperative. Pain: Denies as6 pain. Neuro: Padilla Agitation-Sedation Scale (RASS): 0 - Alert and Calm Level of Consciousness is awake, alert, obeys commands, Oriented to person. Cardiovascular: Reports shortness of breath, Denies chest pain, Rhythm is sinus tachycardia. Respiratory: Reports shortness of breath Airway is patent Trachea midline Respiratory effort is even, unlabored, Respiratory pattern is regular, symmetrical, Breath sounds are diminished bilaterally. Musculoskeletal: Range of motion: limited in left knee and right knee pt bed bound, bilateral legs in bent position, stiff. 20:50 General: pt place on BiPAP by RT, RT continuing to monitor pt . as6 22:13 Reassessment: Patient appears in no apparent distress at this time. Patient and/or as6 family updated on plan of care and expected duration. Pain level reassessed. Vital Signs: 20:10 BP 139 / 86; Pulse 118; Resp 18 S; Temp 98(O); Pulse Ox 90% on R/A; Weight 86.5 kg (M); bb Height 6 ft. 0 in. (182.88 cm) (R); 21:06 BP 115 / 78; Pulse 115; Resp 20 S; Pulse Ox 96% on BiPAP; as6 21:55 BP 120 / 73; Pulse 105; Resp 28 S; Pulse Ox 98% on 4 lpm NC; as6 22:13 BP 123 / 76; Pulse 106; Resp 21 S; Pulse Ox 99% on 30% BiPAP; as6 20:10 Body Mass Index 25.86 (86.50 kg, 182.88 cm) ED Course: 20:09 Patient arrived in ED. wm 20:10 Boni Rosado MD is Attending Physician. mh7 20:10 Arm band placed on Patient placed in an exam room, on a stretcher, on oxygen, on bb cardiac monitor technician, on pulse oximetry. EKG completed in triage. Results shown to . 20:20 Inserted saline lock: 18 gauge in right forearm, using aseptic technique. Blood as6 collected. 20:25 Triage completed. bb 20:27 Flynn Stoddard, DAGO is Primary Nurse. as6 20:40 Placed in gown. Bed in low position. Call light in reach. Side rails up X2. Client as6 placed on continuous cardiac and pulse oximetry monitoring. NIBP monitoring applied. Warm blanket given. 20:56 Notified ED physician of a critical lab result(s). troponin of 212.9 Dr Rosado notified.bb 21:00 XRAY Chest (1 view) In Process Unspecified. EDMS 21:16 Flynn Stoddard, RN is Primary Nurse. as6 21:45 Chest For Pe Angio In Process Unspecified. EDMS 22:14 Neha Jacobsen MD is Hospitalizing Provider. mh7 22:31 No provider procedures requiring assistance completed. Patient admitted, IV remains in as6 place. Administered Medications: 21:53 Drug: Rocephin (cefTRIAXone) 1 grams Route: IV; Rate: per protocol; Site: right forearm;as6 22:44 Follow up: Response: No adverse reaction; IV Status: Completed infusion; IV Intake: [id number] 21:54 Drug: Lasix (furosemide) 40 mg Route: IVP; Site: right forearm; as6 22:44 Follow up: Response: No adverse reaction as6 21:54 Drug: Aspirin Chewable Tablet 324 mg Route: PO; as6 22:44 Follow up: Response: No adverse reaction as6 Medication: 22:32 VIS not applicable for this client. as6 Intake: 22:44 IV: 50ml; Total: 50ml. as6 Outcome: 22:15 Decision to Hospitalize by Provider. [facility] 22:32 Admitted to Med/surg accompanied by tech, via stretcher, room 223, with oxygen, with as6 chart, Report called to Alena LOZA 22:32 Condition: stable 22:32 Instructed on the need for admit. 22:45 Patient left the ED. as6 Signatures: Dispatcher [employer] Yoli Stovall, RN RN Boni Carmen MD MD [facility] Leslye Hogan Flynn Stoddard, DAGO RN as6
--- NOTE | 2021-10-18 22:16 | EDPHYS ---
Physician Documentation [facility] Name: George Ryder Age: 66 yrs Sex: Male : 1955 Arrival Date: 10/18/2021 Time: 20:09 Bed 4 Private MD: ED Physician Boni Rosado HPI: 10/18 20:20 This 66 yrs old Male presents to ER via Unassigned with complaints of Shortness Of mh7 Breath. 20:20 The patient has shortness of breath at rest, Sent from [place] due to low O2 sat of 85%, mh7 patient denies feeling SOB. Onset: The symptoms/episode began/occurred today. Duration: The symptoms are continuous. The patient's shortness of breath has no apparent modifying factors. Associated signs and symptoms: Pertinent negatives: chest pain, non-productive cough, productive cough, diaphoresis, dizziness, fever, hemoptysis, loss of consciousness, nausea, numbness in extremities, visual changes, vomiting. Severity of symptoms: At their worst the symptoms were moderate today, in the emergency department the symptoms have improved moderately. Historical: - Allergies: 20:26 No Known Allergies; bb - Home Meds: 20:26 mupirocin topical [Active]; baclofen 10 mg oral tab 1 tab nightly [Active]; Metoprolol bb Tartrate Oral [Active]; allopurinol 300 mg Oral tab 1 tab once daily [Active]; sildenafil oral [Active]; mirtazapine 15 mg Oral tab 1 tab nightly [Active]; - PMHx: 20:26 Diabetes - NIDDM; High Cholesterol; Hypertension; Prostate; Pulmonary hypertension; CHF;bb - Immunization history:: unknown. - Social history:: Smoking status: unknown. ROS: 20:20 Constitutional: Negative for fever, chills, and weight loss, Eyes: Negative for injury, mh7 pain, redness, and discharge, ENT: Negative for injury, pain, and discharge, Neck: Negative for injury, pain, and swelling, Cardiovascular: Negative for chest pain, palpitations, and edema, Respiratory: Negative for shortness of breath, cough, wheezing, and pleuritic chest pain, Abdomen/GI: Negative for abdominal pain, nausea, vomiting, diarrhea, and constipation, Back: Negative for injury and pain, : Negative for injury, bleeding, discharge, and swelling, MS/Extremity: Negative for injury and deformity, Skin: Negative for injury, rash, and discoloration, Neuro: Negative for headache, weakness, numbness, tingling, and seizure, Psych: Negative for depression, anxiety, suicide ideation, homicidal ideation, and hallucinations, Allergy/Immunology: Negative for hives, rash, and allergies, Endocrine: Negative for neck swelling, polydipsia, polyuria, polyphagia, and marked weight changes, Hematologic/Lymphatic: Negative for swollen nodes, abnormal bleeding, and unusual bruising. Exam: 20:20 Constitutional: This is a well developed, well nourished patient who is awake, alert, mh7 and in no acute distress. Head/Face: Normocephalic, atraumatic. Eyes: Pupils equal round and reactive to light, extra-ocular motions intact. Lids and lashes normal. Conjunctiva and sclera are non-icteric and not injected. Cornea within normal limits. Periorbital areas with no swelling, redness, or edema. Neck: Trachea midline, no thyromegaly or masses palpated, and no cervical lymphadenopathy. Supple, full range of motion without nuchal rigidity, or vertebral point tenderness. No Meningismus. Chest/axilla: Normal chest wall appearance and motion. Nontender with no deformity. No lesions are appreciated. Abdomen/GI: Soft, non-tender, with normal bowel sounds. No distension or tympany. No guarding or rebound. No evidence of tenderness throughout. Back: No spinal tenderness. No costovertebral tenderness. Full range of motion. 20:20 Psych: Awake, alert, with orientation to person, place and time. Behavior, mood, and affect are within normal limits. 20:20 Musculoskeletal/extremity: contractures of lower extremites. 20:20 Neuro: Orientation: is normal, Mentation: is normal, Memory: is normal, Cranial nerves: grossly normal, Cerebellar function: is grossly normal, Motor: the patient is contracted, Sensation: no obvious gross deficits, Gait: not tested. seizure activity, is not displayed by the patient, Abnormal movements: there are no abnormal movements. Vital Signs: 20:10 BP 139 / 86; Pulse 118; Resp 18 S; Temp 98(O); Pulse Ox 90% on R/A; Weight 86.5 kg (M); bb Height 6 ft. 0 in. (182.88 cm) (R); 21:06 BP 115 / 78; Pulse 115; Resp 20 S; Pulse Ox 96% on BiPAP; as6 21:55 BP 120 / 73; Pulse 105; Resp 28 S; Pulse Ox 98% on 4 lpm NC; as6 22:13 BP 123 / 76; Pulse 106; Resp 21 S; Pulse Ox 99% on 30% BiPAP; as6 20:10 Body Mass Index 25.86 (86.50 kg, 182.88 cm) bb MDM: 22:11 Differential diagnosis: Anemia Anxiety Reaction asthma, Bronchitis CHF exacerbation, mh7 Chronic Obstructive Pulmonary Disease Myocardial Infarction pneumonia, Pneumothorax Psychogenic pulmonary edema, Pulmonary Embolism reactive airway disease, Unstable Angina. Data reviewed: vital signs, nurses notes, EMS record, half-way records, old medical records, lab test result(s), cardiac enzymes, CBC, electrolytes, EKG, radiologic studies, CT scan, plain films. Data interpreted: Pulse oximetry: on BiPAP is 98 %. Interpretation: acceptable. Counseling: I had a detailed discussion with the patient and/or guardian regarding: the historical points, exam findings, and any diagnostic results supporting the discharge/admit diagnosis, lab results, radiology results, the need for further work-up and treatment in the hospital. 22:15 Patient medically screened. [facility] 10/18 20:16 Order name: Basic Metabolic Panel; Complete Time: 20:58 [facility] 10/18 20:16 Order name: CBC with Diff; Complete Time: 20:52 [facility] 10/18 20:16 Order name: LFT's; Complete Time: 20:58 [facility] 10/18 20:16 Order name: Magnesium; Complete Time: 20:58 [facility] 10/18 20:16 Order name: NT PRO-BNP; Complete Time: 20:58 [facility] 10/18 20:16 Order name: PT-INR; Complete Time: 21:02 [facility] 10/18 20:16 Order name: Troponin HS; Complete Time: 20:58 [facility] 10/18 20:16 Order name: D-Dimer; Complete Time: 21:02 [facility] 10/18 20:16 Order name: Blood Culture Adult (2) [facility] 10/18 20:16 Order name: Lactate; Complete Time: 20:58 [facility] 10/18 20:16 Order name: Arterial Blood Gas [facility] 10/18 20:18 Order name: COVID-19 SARS RT PCR (Document "Date of Onset" if Symptomatic); Complete 7 Time: 21:33 12 20:18 Order name: Influenza Screen (a \\T\\ B) [facility] 10/18 20:43 Order name: Glucose, Ancillary Testing; Complete Time: 20:52 [facility] 10/18 20:16 Order name: XRAY Chest (1 view); Complete Time: 22:11 [facility] 10/18 20:16 Order name: EKG; Complete Time: 20:17 [facility] 10/18 20:16 Order name: Cardiac monitoring; Complete Time: 20:39 [facility] 10/18 20:16 Order name: EKG - Nurse/Tech; Complete Time: 20:39 [facility] 10/18 20:16 Order name: IV Saline Lock; Complete Time: 20:39 [facility] 10/18 20:16 Order name: Labs collected and sent; Complete Time: 20:40 [facility] 10/18 20:16 Order name: O2 Per Protocol; Complete Time: 20:40 [facility] 10/18 20:16 Order name: O2 Sat Monitoring; Complete Time: 20:40 [facility] 10/18 21:02 Order name: CT Chest For PE Angio [facility] 10/18 21:06 Order name: Chest For Pe Angio; Complete Time: 22:11 [facility] 12 21:22 Order name: Urine Dipstick-Ancillary; Complete Time: 21:33 [facility] 12 21:34 Order name: Urine Microscopic Only [facility] 10/18 21:34 Order name: Urine Culture [facility] 10/18 20:16 Order name: Urine Dipstick-Ancillary (obtain specimen); Complete Time: 21:54 mh7 Administered Medications: 21:53 Drug: Rocephin (cefTRIAXone) 1 grams Route: IV; Rate: per protocol; Site: right forearm;as6 22:44 Follow up: Response: No adverse reaction; IV Status: Completed infusion; IV Intake: [id number] 21:54 Drug: Lasix (furosemide) 40 mg Route: IVP; Site: right forearm; as6 22:44 Follow up: Response: No adverse reaction as6 21:54 Drug: Aspirin Chewable Tablet 324 mg Route: PO; as6 22:44 Follow up: Response: No adverse reaction as6 Disposition Summary: 10/18/21 22:15 Hospitalization Ordered Hospitalization Status: Inpatient Admission [facility] Provider: Neha Jacobsen Location: Telemetry/MedSurg (Inpatient) [facility] Condition: Stable [facility] Problem: an acute exacerbation [facility] Symptoms: have improved [facility] Bed/Room Type: Standard [facility] Room Assignment: 223(10/18/21 22:22) Diagnosis - Unspecified combined systolic (congestive) and diastolic (congestive) heart failure [facility] Forms: - Medication Reconciliation Form [facility] - SBAR form [facility] Signatures: Dispatcher [employer] Yoli Stovall RN RN bb Elio Rosado FNP-C EDDIE-Eunice Donahue RN RN cg Boni Rosado MD MD 7 Flynn Stoddard RN RN as6 Corrections: (The following items were deleted from the chart) 22:15 [facility] cg
--- NOTE | 2021-10-18 22:20 | P.HP ---
Certification for Inpatient Patient admitted to: Inpatient With expected LOS: >2 Midnights Patient will require the following post-hospital care: None Practitioner: I am a practitioner with admitting privileges, knowledge of patient current condition, hospital course, and medical plan of care. Services: Services provided to patient in accordance with Admission requirements found in Title 42 Section 412.3 of the Code of Federal Regulations Patient History Date of Service: 10/18/21 Reason for admission: Respiratory failure History of Present Illness: 66-year-old male resident of assisted living facility [facility] presents emergency department for shortness of breath, lethargy. Patient was seen here in June 2020 diagnosed with severe pulmonary hypertension sent to [facility] in [place] for further evaluation he denies any procedures being completed at the time he was placed on sildenafil, ever since then he has been in and out of assisted living facilities he has about 2 bouts of COVID, he is currently at [facility] working with PT to help try to gain some strength back. Today he is found to be hypoxic 85% on room air brought to the emergency permit for evaluation his labs were significant for elevated BNP moderate elevation in high-sensitivity troponin ABG with hypercapnia elevated D-dimer CT PE protocol reveals mild bilateral interstitial opacities may indicate interstitial pulmonary edema negative for PE. Patient was placed on BiPAP for hypercapnia ED provider wishes to admit for further evaluation and management suspected CHF exacerbation. Allergies No Known Allergies Allergy (Verified 08/03/18 10:49) Home Medications: Atorvastatin Calcium [Lipitor] 5 mg PO DAILY 08/03/18 Glimepiride 4 mg PO BID 08/03/18 lisinopriL [Prinivil] 5 mg PO DAILY 08/03/18 - Past Medical/Surgical History Diabetic: Yes -: HTN -: DM -: Hyperlipidemia -: Pulmonary hypertension -: Diastolic CHF -: cataract sx -: appendectomy Psychosocial/ Personal History: Patient states his assisted living facility - Family History Father -: Heart disease, Hypertension, Diabetes - Social History Smoking Status: Former smoker Alcohol use: No CD- Drugs: No Caffeine use: No Place of Residence: Home Review of Systems 10-point ROS is otherwise unremarkable General: Malaise Respiratory: Shortness of Breath Physical Examination - Physical Exam General: Alert, In no apparent distress, Oriented x3 HEENT: Atraumatic, PERRLA, Mucous membr. moist/pink, EOMI, Sclerae nonicteric Neck: Supple, 2+ carotid pulse no bruit, No LAD, Without JVD or thyroid abnormality Respiratory: Clear to auscultation bilaterally, Diminished Cardiovascular: Regular rate/rhythm, Normal S1 S2 Capillary refill: <2 Seconds Gastrointestinal: Normal bowel sounds, No tenderness Musculoskeletal: No tenderness Integumentary: No rashes Neurological: Normal speech, Normal tone, Normal affect - Studies Laboratory Data (last 24 hrs) 10/18/21 20:22: PT 11.7, INR 1.06 10/18/21 20:22: WBC 9.0, Hgb 14.8, Hct 46.5, Plt Count 248 10/18/21 20:22: Sodium 141, Potassium 4.1, BUN 27 H, Creatinine 0.91, Glucose 167 H, Magnesium 2.1, Total Bilirubin 0.3, AST 14 L, ALT 17, Alkaline Phosphatase 104 Assessment and Plan - Plan Assessment: Acute hypoxic/hypercapnic respiratory failure NSTEMI/acute on chronic diastolic congestive heart failure history severe pulmonary hypertension Diabetes type [id number] Hypertension Hyperlipidemia Plan: Acute hypoxic/hypercapnic respiratory failure: Continue BiPAP as needed repeat ABG in the morning likely secondary to CHF/pulmonary hypertension continue Lasix, pulmonology/cardiology consults in place. NSTEMI/acute on chronic diastolic congestive heart failure history severe pulmonary hypertension: In troponin, monitor on telemetry, echocardiogram ordered, cardiology consulted continue home medications including metoprolol, sildenafil for pulmonary hypertension. Patient denies any chest pain at this time. Diabetes type [id number]: ACH S Accu-Chek, mild sliding scale insulin. Hypertension: Continue metoprolol, sildenafil Hyperlipidemia: Continue home medication. DVT PPX: Lovenox Code status:full Discharge Plan: Retirement Plan to discharge in: 72 Hours - Advance Directives Does patient have a Living Will: No Does patient have a Durable POA for Healthcare: Yes - Code Status/Comfort Care Code Status Assessed: Yes (Full code) Critical Care: No Time Spent Managing Pts Care (In Minutes): 70
[2021-10-18 23:15] VITALS: BMI 25.9
[2021-10-18] MEDS ORDERED: ONDANSETRON 4 MG/2 ML VIAL IV PRN (23:16)
[2021-10-18] MEDS ORDERED: ACETAMINOPHEN 500 MG TAB PO PRN (23:16)
[2021-10-18 23:26] LABS: Urine Bacteria 20-50 /HPF (NONE SEEN); Urine RBC 20-50 /HPF (NONE SEEN)
[2021-10-19 04:24] LABS: Absolute Lymphocytes (CBC) 1.4 K/uL (0.7-4.9); Hematocrit 46.2 % (39.6-49.0); MPV 7.2 fL (7.6-11.3); RBC Red Blood Cell Count 4.98 M/uL (4.33-5.43)
[2021-10-19 04:36] LABS: Bilirubin Total 0.3 mg/dL (0.2-1.0); Potassium 4.5 mmol/L (3.5-5.1); Protein, Total 7.1 g/dL (6.4-8.2)
[2021-10-19 04:46] LABS: Troponin High Sensitivity 283.3 pg/mL (<58.9)
[2021-10-19] MEDS: METOPROLOL TAR 25 MG TAB PO SCH ×2 (05:43→17:27)
[2021-10-19 05:44] LABS: Arterial Blood Carboxyhemoglob 1.5 % (0-1.5); Blood Gas Oxyhemoglobin 94.2 % (94-97); Blood O2 Saturation 96.9 % (92-98.5)
[2021-10-19] MEDS: INSULIN -REGULAR HUMAN 50 UNIT/0.5 ML ML SQ SCH ×4 (07:30→20:52)
[2021-10-19] MEDS ORDERED: FUROSEMIDE 40 MG/4 ML VIAL IV SCH (09:00)
[2021-10-19] MEDS: ENOXAPARIN 40 MG/0.4 ML SQ SCH (10:05)
[2021-10-19] MEDS: SILDENAFIL CITRATE 20 MG TABLET PO SCH ×2 (10:06→22:44)
--- NOTE | 2021-10-19 12:39 | P.CNS ---
Date of Consult: 10/19/21 Reason for Consult: Respiratory failure on BiPAP Chief Complaint: Respiratory failure History of Present Illness: Patient is 66 admitted with shortness of breath and altered mental status diagnosed with severe pulmonary hypertension is treated with sildenafil history of COVID x2 was found to be hypoxic hypercapnic currently on BiPAP unresponsive Allergies No Known Allergies Allergy (Verified 08/03/18 10:49) Home Medications: Allopurinol 300 mg PO DAILY 10/19/21 Baclofen [Lioresal] 10 mg PO DAILY 10/19/21 Metoprolol Tartrate 12.5 mg PO BID 10/19/21 Mirtazapine [Remeron] 15 mg PO BEDTIME 10/19/21 Mupirocin Calcium [Bactroban] 1 appl TP BID 10/19/21 Sildenafil Citrate 20 mg PO Q12H 10/19/21 - Past Medical/Surgical History Diabetic: Yes -: HTN -: DM -: Hyperlipidemia -: Pulmonary hypertension -: Diastolic CHF -: cataract sx -: appendectomy Psychosocial/ Personal History: Patient states his assisted living facility - Family History Father Medical History: Heart disease, Hypertension, Diabetes - Social History Smoking Status: Unknown if ever smoked Alcohol use: No CD- Drugs: No Caffeine use: No Place of Residence: Home Review of Systems is unable to be obtained Physical Examination Temp Pulse Resp BP Pulse Ox 97.1 F 102 H 22 H 100/64 97 10/19/21 08:00 10/19/21 10:05 10/19/21 08:00 10/19/21 10:05 10/19/21 08:00 General: Unresponsive HEENT: Atraumatic Neck: Supple Respiratory: Clear to auscultation bilaterally, Diminished Cardiovascular: Normal S1 S2, Edema Gastrointestinal: Normal bowel sounds, Soft and benign Laboratory Data (last 24 hrs) 10/18/21 20:22: PT 11.7, INR 1.06 10/18/21 20:22: WBC 9.0, Hgb 14.8, Hct 46.5, Plt Count 248 10/18/21 20:22: Sodium 141, Potassium 4.1, BUN 27 H, Creatinine 0.91, Glucose 167 H, Magnesium 2.1, Total Bilirubin 0.3, AST 14 L, ALT 17, Alkaline Phosphatase 104 - Problems (1) Respiratory failure Current Visit: Yes Status: Acute Plan: Patient is 66 years patient is 66 years of age admitted with altered mental status and respiratory failure history of severe pulmonary hypertension history of chronic history of chronic hypercapnia most likely is chronic his bicarbonate was elevated on admission troponins elevated as his troponins are elevated I suspect is from hypoxemia Qualifiers: Respiratory failure complication: hypoxia and hypercapnia
--- NOTE | 2021-10-19 13:34 | EKG ---
Test Date: 2021-10-18 Test Time: 20:13:07 Reproduction Technician: OLIVE MEASUREMENT RESULTS: Intervals: Rate: 110 SD: 172 QRSD: 74 QT: 328 QTc: 443 [place]: P: 8 SD: 172 QRS: 77 T: -20 INTERPRETIVE STATEMENTS: Sinus tachycardia Inferior infarct, age undetermined ST & T wave abnormality, consider anterolateral ischemia Abnormal ECG Compared to ECG 06/26/2020 18:26:09 Myocardial infarct finding now present ST (T wave) deviation now present Right ventricular hypertrophy no longer present Early repolarization no longer present T-wave abnormality no longer present Possible ischemia still present Electronically Signed On 10-19-21 13:33:10 CDT by Yared Olivares
[2021-10-19] MEDS: SPIRONOLACTONE 25 MG TABLET PO SCH ×2 (14:00→20:51)
[2021-10-19] MEDS: ALBUTEROL 2.5 MG/3 ML NEB SOL IH SCH ×2 (14:30→20:00)
[2021-10-19 15:04] LABS: Arterial Blood Carboxyhemoglob 1.6 % (0-1.5); Blood Gas Oxyhemoglobin 87.8 % (94-97); Blood O2 Saturation 90.2 % (92-98.5)
[2021-10-19] MEDS: ARFORMOTEROL TARTRATE 15 MCG/2 ML VIAL.NEB NEB SCH (20:00)
[2021-10-19] MEDS: MIRTAZAPINE 15 MG TAB PO SCH (20:51)
[2021-10-20] MEDS: ALBUTEROL 2.5 MG/3 ML NEB SOL IH SCH ×4 (01:10→20:00)
[2021-10-20] MEDS: METOPROLOL TAR 25 MG TAB PO SCH ×2 (05:24→17:01)
[2021-10-20 06:02] LABS: Absolute Lymphocytes (CBC) 1.2 K/uL (0.7-4.9); Hematocrit 45.4 % (39.6-49.0); Lymphocytes % 14.8 % (15.3-44.8); MCV 93.4 fL (80-100); MPV 7.1 fL (7.6-11.3); RBC Red Blood Cell Count 4.87 M/uL (4.33-5.43)
[2021-10-20 06:36] LABS: Albumin 3.2 g/dL (3.4-5.0); Bilirubin Total 0.7 mg/dL (0.2-1.0); Potassium 3.9 mmol/L (3.5-5.1); Protein, Total 7.2 g/dL (6.4-8.2)
[2021-10-20] MEDS: INSULIN -REGULAR HUMAN 50 UNIT/0.5 ML ML SQ SCH ×4 (07:30→21:01)
[2021-10-20] MEDS ORDERED: POTASSIUM CL SA 10 MEQ TAB PO ONE (09:00)
[2021-10-20] MEDS ORDERED: FUROSEMIDE 40 MG/4 ML VIAL IV SCH (09:00)
[2021-10-20] MEDS: ARFORMOTEROL TARTRATE 15 MCG/2 ML VIAL.NEB NEB SCH ×2 (09:15→20:00)
[2021-10-20] MEDS: ENOXAPARIN 40 MG/0.4 ML SQ SCH (09:31)
[2021-10-20] MEDS: SPIRONOLACTONE 25 MG TABLET PO SCH ×2 (09:31→21:01)
[2021-10-20] MEDS: SILDENAFIL CITRATE 20 MG TABLET PO SCH ×2 (09:32→21:00)
--- NOTE | 2021-10-20 11:24 | ECHO ---
HEIGHT: 6 ft 0 in WEIGHT: 191 lb 9.6 oz DATE OF STUDY: 10/20/[address]: Elio Rosado NP 2-DIMENSIONAL: YES M.MODE: YES DOPPLER: YES COLOR FLOW: YES TDS: PORTABLE: YES DEFINITY: BUBBLE STUDY: DIAGNOSIS: CONGESTIVE HEART FAILURE, HISTORY OF PULMONARY HYPERTENSION CARDIAC HISTORY: CATHERIZATION: NO SURGERY: NO PROSTHETIC VALVE: NO PACEMAKER: NO MEASUREMENTS (cm) DIASTOLIC (NORMALS) SYSTOLIC (NORMALS) IVSd 1.1 (0.6-1.2) LA Diam 3.5 (1.9-4.0) LVEF 72% LVIDd 4.4 (3.5-5.7) LVIDs 2.6 (2.0-3.5) %FS 41% LVPWd 1.2 (0.6-1.2) Ao Diam 3.3 (2.0-3.7) 2 DIMENSIONAL ASSESSMENT: RIGHT ATRIUM: NORMAL LEFT ATRIUM: NORMAL RIGHT VENTRICLE: NORMAL LEFT VENTRICLE: NORMAL TRICUSPID VALVE: NORMAL MITRAL VALVE: MITRAL ANNULAR CALCIFICATION PULMONIC VALVE: NORMAL AORTIC VALVE: NORMAL PERICARDIAL EFFUSION: NONE AORTIC ROOT: NORMAL LEFT VENTRICULAR WALL MOTION: NORMAL DOPPLER/COLOR FLOW: MILD TRICUSPID REGURGITATION COMMENTS: MITRAL ANNULAR CALCIFICATION. MILD TRICUSPID REGURGITATION. RIGHT VENTRICULAR SYSTOLIC PRESSURE 51 mmHg. NORMAL LEFT VENTRICULAR SIZE AND FUNCTION. TECHNOLOGIST: MARINA MARTINEZ
--- NOTE | 2021-10-20 12:26 | P.PN ---
Subjective Date of Service: 10/20/21 Chief Complaint: Respiratory failure Subjective: Improving (Patient is doing well patient is doing well on nasal cannula oxygen 4 L denies any prior history of obstructive airways disease has never smoked) Review of Systems is unable to be obtained Physical Examination - Vital Signs Temperature: 97.0 F Blood Pressure: 91/57 Pulse: 85 Respirations: 16 Pulse Ox (%): 96 - Physical Exam General: Alert Respiratory: Clear to auscultation bilaterally, Diminished Cardiovascular: No edema, Regular rate/rhythm Assessment And Plan - Current Problems (Diagnosis) (1) Respiratory failure Current Visit: Yes Status: Acute Plan: Patient is doing better doing better stable on 4 L on nasal cannula oxygen blood gases reviewed hypoxemia and hypercarbia denies prior history of obstructive airways disease is never smoked echocardiogram shows mild probably has underlying diastolic dysfunction add p.o. prednisone DC IV Lasix discharge planning should go home on a bronchodilator recommend nebulized Brovana and low- dose prednisone 10 mg twice a day in addition to spironolactone Qualifiers: Respiratory failure complication: hypoxia and hypercapnia
[2021-10-20] MEDS: predniSONE 20 MG TAB PO SCH ×2 (12:59→21:01)
[2021-10-20] MEDS: MIRTAZAPINE 15 MG TAB PO SCH (21:01)
[2021-10-21] MEDS: ALBUTEROL 2.5 MG/3 ML NEB SOL IH SCH ×3 (01:05→14:36)
[2021-10-21 04:16] LABS: Absolute Lymphocytes (CBC) 0.5 K/uL (0.7-4.9); Hematocrit 46.1 % (39.6-49.0); Lymphocytes % 8.1 % (15.3-44.8); MPV 7.1 fL (7.6-11.3); RBC Red Blood Cell Count 4.96 M/uL (4.33-5.43)
[2021-10-21 04:29] LABS: Albumin 3.3 g/dL (3.4-5.0); Bilirubin Total 0.3 mg/dL (0.2-1.0); Potassium 4.5 mmol/L (3.5-5.1); Protein, Total 7.6 g/dL (6.4-8.2)
[2021-10-21] MEDS: METOPROLOL TAR 25 MG TAB PO SCH ×2 (06:45→18:00)
[2021-10-21] MEDS: INSULIN -REGULAR HUMAN 50 UNIT/0.5 ML ML SQ SCH ×3 (07:30→16:30)
[2021-10-21] MEDS: ARFORMOTEROL TARTRATE 15 MCG/2 ML VIAL.NEB NEB SCH (07:50)
--- NOTE | 2021-10-21 09:15 | P.PN ---
Subjective Date of Service: 10/19/21 Patient remains on BiPAP support. Respiratory status is improving. He states he feels better. Review of Systems 10-point ROS is otherwise unremarkable Physical Examination - Vital Signs Temperature: 96.7 F Blood Pressure: 111/65 Pulse: 70 Respirations: 16 Pulse Ox (%): 90 - Physical Exam General: Alert, In no apparent distress HEENT: Atraumatic, PERRLA, EOMI Neck: Supple, JVD not distended Respiratory: Diminished, Expiratory wheezes Cardiovascular: Regular rate/rhythm, Normal S1 S2, No murmurs Gastrointestinal: Normal bowel sounds, Soft and benign, Non-distended, No tenderness Musculoskeletal: No clubbing, No swelling, No tenderness Integumentary: No rashes Neurological: Sensation intact, Cranial nerves 3-12 intact - Studies Microbiology Data (last 24 hrs): 10/18/21 22:03 Clean Catch Urine [place] Count - Final BETWEEN 10,000 & 100,000 CFU/ML 10/18/21 22:03 Clean Catch Urine - Final Pseudomonas Aeruginosa Gram Neg Cornel Medications List Reviewed: Yes Assessment & Plan - Problems (Diagnosis) (1) Respiratory failure Current Visit: Yes Status: Acute Qualifiers: Respiratory failure complication: hypoxia and hypercapnia - Plan Plan: 1. Continue with albuterol and Atrovent nebs 2. Continue with IV steroids 3. BiPAP support as needed 4. Pulmonary consultation appreciated 5. Room air O2 sats 6. Repeat chest x-ray in the morning 7. GI and DVT prophylaxis Discharge Plan: Home Plan to discharge in: Greater than 2 days - Advance Directives Does patient have a Living Will: No Does patient have a Durable POA for Healthcare: No - Code Status/Comfort Care Code Status Assessed: Yes Code Status: Full Code Critical Care: No Time Spent Managing PTS Care (In Minutes): 35
--- NOTE | 2021-10-21 09:17 | P.PN ---
Date of Service: 10/20/21 Subjective Patient remains on BiPAP support. Respiratory status is improving. He states he feels better. Review of Systems 10-point ROS is otherwise unremarkable Physical Examination - Vital Signs reviewed - Physical Exam General: Alert, In no apparent distress Respiratory: Diminished, Expiratory wheezes Cardiovascular: Regular rate/rhythm, Normal S1 S2, No murmurs Gastrointestinal: Normal bowel sounds, Soft and benign, Non-distended, No tenderness Musculoskeletal: No clubbing, No swelling, No tenderness Neurological: Sensation intact, Cranial nerves 3-12 intact Assessment & Plan - Problems (Diagnosis) (1) Respiratory failure Current Visit: Yes Status: Acute Respiratory failure complication: hypoxia and hypercapnia Plan: 1. Continue with albuterol and Atrovent nebs 2. Continue with IV steroids 3. BiPAP support as needed 4. Pulmonary consultation appreciated 5. Room air O2 sats 6. Repeat chest x-ray in the morning 7. GI and DVT prophylaxis Discharge Plan: Home Plan to discharge in: Greater than 2 days - Advance Directives Does patient have a Living Will: No Does patient have a Durable POA for Healthcare: No - Code Status/Comfort Care Code Status Assessed: Yes Code Status: Full Code Critical Care: No Time Spent Managing PTS Care (In Minutes): 35
[2021-10-21] MEDS: SPIRONOLACTONE 25 MG TABLET PO SCH (09:58)
[2021-10-21] MEDS: predniSONE 20 MG TAB PO SCH (09:58)
[2021-10-21] MEDS: ENOXAPARIN 40 MG/0.4 ML SQ SCH (09:58)
[2021-10-21] MEDS: SILDENAFIL CITRATE 20 MG TABLET PO SCH (10:02)
[2021-10-21 15:54] VITALS: BP 109/57; TEMP 97.5
[2021-10-21 16:27] VITALS: O2SAT 92
--- NOTE | 2021-10-22 20:41 | PN ---
Date of Progress Note: 10/20/2021 Mr. Ryder came in with severe pulmonary hypertension and chronic diastolic congestive heart failure ex acerbation. He has hypercapnia, elevated D-dimer, troponin, and BNP. He has a history of coronary a rtery disease and needs to be addressed down the road, diabetes, hypertension, dyslipidemia. He impr lamine as far as his breathing is concerned. Echocardiogram actually showed improvement. As far as hi s pulmonary hypertension, his right ventricular systolic pressure was 51 mmHg with a normal ejection fraction. I am comfortable with Mr. Ryder going home whenever it is okay with Dr. Jacobsen. We will foll ow up with him in the very near future as far as his coronary artery disease is concerned. Continue present regimen. DOMENIC/GEM Voice ID: [id number] Report ID: [id number]
--- NOTE | 2021-10-22 20:41 | CON ---
Date of Consultation: 10/19/2021 Reason For Consultation: Respiratory failure. History Of Present Illness: Mr. Ryder is a 66-year-old male. Has known severe pulmonary hypertension by recent echocardiography with a normal ejection fraction. He has diastolic congestive heart failu re, coronary artery disease. He has diabetes, hypertension, dyslipidemia. He comes in with shortnes s of breath. No PND, orthopnea, or pedal edema. Denied any palpitations or syncope. Denied any fev er or chills. Past Medical History: As stated above. Allergies: NONE. Review of Systems: Negative. Social History: Negative. Family History: Noncontributory. Medications: At home include sildenafil as well as metoprolol, insulin, and Lasix. He is also now o n Lovenox. Physical Examination: General: He was rather obtunded. Vital Signs: His PO2 was 100, pCO2 was 73. His pH was 7.30. He had a 96% O2 saturation on BiPAP. HEENT: Negative. He was in a sinus rhythm, afebrile. Chest: Reveals rales at both bases. Cardiac: Revealed regular rhythm and rate with S4 gallops and a tricuspid regurgitation murmur. Abdomen: Benign. Extremities: Revealed trace edema. Diagnostic Data: Showed UTI, D-dimer of 1240. Troponin was 283. His BNP was 5000. Impression And Plan: 1.Acute on chronic exacerbation of severe pulmonary hypertension and diastolic congestive heart fail ure. 2.Hypercapnia. 3.Elevated D-dimer, troponin, and BNP secondary to demand ischemia. 4.History of coronary artery disease that is stable. 5.Hypertension, well controlled. 6.Diabetes, well controlled. 7.Dyslipidemia, well controlled. Mr. Ryder needs to be on oxygen. He needs to be diuresed. He need s to be on inhalers. Continue his sildenafil. Continue his metoprolol. Obtain another echocardiogr am. He had some coronary artery disease by last catheterization. I believe he needed to have some f urther angioplasty and stent, but I am not so sure repeated that. I will follow up with that as an o utpatient. I will continue to follow him meanwhile. DOMENIC/GEM Voice ID: [id number] Report ID: [id number]
== END 2021-10-21 18:25 | disposition home or self-care (01) | DRG 291 ==
LOC: ER 20:05 → 2ND 22:42
PROVIDERS: ADMIT Hospitalist; ATTEND Hospitalist
PROC: 5A09457 Assistance with Respiratory Ventilation, 24-96 Consecutive Hours, Continuous Positive Airway Pressure (ICD-10-PCS; principal; 2021-10-18)
DX: I11.0 Hypertensive heart disease with heart failure (principal); J96.02 Acute respiratory failure with hypercapnia; I50.33 Acute on chronic diastolic (congestive) heart failure; J96.01 Acute respiratory failure with hypoxia; I24.8 Other forms of acute ischemic heart disease; G93.1 Anoxic brain damage, not elsewhere classified; I27.20 Pulmonary hypertension, unspecified; E11.9 Type 2 diabetes mellitus without complications; E78.5 Hyperlipidemia, unspecified; I25.10 Atherosclerotic heart disease of native coronary artery without angina pectoris; N15.9 Renal tubulo-interstitial disease, unspecified; Z86.16 Personal history of COVID-19; Z20.822 Contact with and (suspected) exposure to COVID-19
CPT/HCPCS: 36415; 71045; 71275; 80048; 80053; 80076; 81003; 81015; 82805; 82947; 83605; 83735; 83880; 84484; 85025; 85379; 85610; 87040; 87077; 87086; 87088; 87186; 87804; 93005; 93306; 94640; 94660; 94760; 96365; 96375; 99285; J1650; J1815; J1940; J7512; J7605; Q9967; U0003

== ENCOUNTER 2021-12-13 18:03 | Inpatient (IN) | payer OTHER ==
[2021-12-13 19:21] LABS: Absolute Lymphocytes (CBC) 1.3 K/uL (0.7-4.9); Hematocrit 45.4 % (39.6-49.0); Lymphocytes % 18.4 % (15.3-44.8); MCV 94.8 fL (80-100); RBC Red Blood Cell Count 4.79 M/uL (4.33-5.43)
[2021-12-13 19:37] LABS: Potassium 4.8 mmol/L (3.5-5.1)
--- NOTE | 2021-12-13 19:38 | RAD REPORT ---
EXAM DESCRIPTION: CT - Head Brain Wo Cont - 12/13/2021 7:13 pm CLINICAL HISTORY: Alteration of awareness/confusion COMPARISON: None TECHNIQUE: Computed axial tomography of the head was obtained. IV contrast was not requested. All CT scans are performed using dose optimization technique as appropriate and may include automated exposure control or mA/KV adjustment according to patient size. FINDINGS: An intracranial bleed is not seen . The ventricles are normal in caliber. No extra-axial fluid collection is noted. Mild low-density areas within periventricular, deep and subcortical white matter likely represent isc hemic changes secondary to small vessel disease. Fluid within the sinuses/ mastoids is not seen. IMPRESSION: No acute intracranial abnormality is seen. If patient's symptoms persist MRI of the bra in would be recommended.
[2021-12-13 19:39] LABS: Troponin High Sensitivity 246.8 pg/mL (<58.9)
[2021-12-13 19:47] LABS: Arterial Blood Carboxyhemoglob 1.6 % (0-1.5); Blood Gas Oxyhemoglobin 88.6 % (94-97); Blood O2 Saturation 91.2 % (92-98.5)
--- NOTE | 2021-12-13 19:47 | RAD REPORT ---
EXAM DESCRIPTION: Cr Single View12/13/2021 7:35 pm CLINICAL HISTORY: Shortness of breath COMPARISON: October 2021 FINDINGS: Mild bilateral interstitial lung opacities without significant change Heart is normal size IMPRESSION: Mild bilateral interstitial lung opacities may be chronic or indicate mild interstitial pulmonary edema or pneumonitis
--- NOTE | 2021-12-13 19:56 | ER ---
Nurse's Notes [facility] Name: George Ryder Age: 66 yrs Sex: Male : 1955 Arrival Date: 12/13/2021 Time: 18:14 Bed 13 Private MD: Diagnosis: Acute on chronic combined systolic (congestive) and diastolic (congestive) heart failure Presentation: 12/13 18:20 Chief complaint: EMS states: toned out to [facility] for an unconscious PT who was tp1 not responsive. caregiver reported they could not get a hold of the POA. 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 during transport EMS stated PT was A/O x4, PT stated he takes a few minutes to wake up. EMS reported CO2 53, BS 137, T98.7. EMS reported home O2 use. Coronavirus screen: Vaccine status: Patient reports receiving the 2nd dose of the covid vaccine. Ebola Screen: Patient denies exposure to infectious person. Patient denies travel to an Ebola-affected area in the 21 days before illness onset. Initial Sepsis Screen: Does the patient meet any 2 criteria? No. Patient's initial sepsis screen is negative. Does the patient have a suspected source of infection? No. Patient's initial sepsis screen is negative. Risk Assessment: Do you want to hurt yourself or someone else? Patient reports no desire to harm self or others. Onset of symptoms was December 13, 2021. 18:20 Method Of Arrival: EMS: [facility] tp1 18:20 Acuity: CYRUS 3 tp1 Triage Assessment: 18:05 General: Appears in no apparent distress. comfortable, Behavior is calm, cooperative. tp1 Pain: Denies pain. EENT: No deficits noted. Neuro: Level of Consciousness is awake, alert, obeys commands, Oriented to person, place, time, situation, Pupils are PERRLA. Cardiovascular: Patient's skin is warm and dry. Respiratory: Airway is patent Respiratory effort is even, unlabored. GI: Abdomen is round non-distended. : No signs and/or symptoms were reported regarding the genitourinary system. Derm: Skin is pink, warm \\T\\ dry. Musculoskeletal: Bilateral lower extremities contracted. Historical: - Allergies: 18:27 No Known Allergies; tp1 - PMHx: 18:27 CHF; High Cholesterol; Diabetes - NIDDM; Hypertension; Prostate; PULMONARY HYPERTENSION;tp1 - Immunization history:: Client reports receiving the 2nd dose of the Covid vaccine. - Social history:: Smoking status: Patient denies any tobacco usage or history of. Screenin:27 Abuse screen: Denies threats or abuse. Denies injuries from another. Nutritional tw5 screening: No deficits noted. Tuberculosis screening: No symptoms or risk factors identified. Fall Risk Fall in past 12 months (25 points). Assessment: 18:30 General: see triage notes . tp1 19:05 Reassessment: Patient appears in no apparent distress at this time. Patient and/or tp1 family updated on plan of care and expected duration. Pain level reassessed. PT appears to be drowsy and unable to state name and birthday. ER provider notified. 20:49 Reassessment: provided hygiene care. pt tolerated well. aa9 23:27 Neuro: Level of Consciousness is awake, alert, obeys commands, Oriented to person, tw5 place. Musculoskeletal: Range of motion: limited in left knee, left ankle, right knee and right ankle. Vital Signs: 18:20 BP 96 / 66; Pulse 104; Resp 18; Pulse Ox 97% on 2 lpm NC; Weight 91 kg; Height 6 ft. 4 tp1 in. (193.04 cm); 18:20 Body Mass Index 24.42 (91.00 kg, 193.04 cm) tp1 ED Course: 18:05 Arm band placed on. tp1 18:14 Patient arrived in ED. em1 18:19 Randy Cain is PHCP. jl9 18:19 Mitch Sesay MD is Attending Physician. jl9 18:20 Lacey Jones, DAGO is Primary Nurse. tp1 18:26 Triage completed. tp1 18:31 Bed in low position. Call light in reach. Side rails up X2. tp1 18:50 Missed attempt(s): 20 gauge in right forearm. Bleeding controlled, band aid applied, tp1 catheter tip intact. 18:55 Missed attempt(s): 20 gauge in left wrist. Bleeding controlled, band aid applied, tp1 catheter tip intact. 18:58 Inserted saline lock: 20 gauge in left wrist, using aseptic technique. Blood collected. tp1 19:08 role handed off by Najma Richardson, RN mw2 19:14 CT Head Brain wo Cont In Process Unspecified. EDMS 19:36 XRAY Chest (1 view) In Process Unspecified. EDMS 19:40 SARS-COV-2 RT PCR (Document "Date of Onset" if Symptomatic) Sent. as6 19:54 Dennis Espinosa MD is Hospitalizing Provider. jl9 23:27 Client placed on continuous cardiac and pulse oximetry monitoring. NIBP monitoring tw5 applied. Door closed. Noise minimized. Moved to private room. Placed in hospital bed. 23:27 No provider procedures requiring assistance completed. tw5 23:28 Patient admitted, IV remains in place. tw5 12/14 01:04 Neha Jacobsen MD is Hospitalizing Provider. sb3 Administered Medications: 12/13 20:48 Drug: Lasix (furosemide) 40 mg Route: IVP; Site: left forearm; aa9 Medication: 23:27 VIS not applicable for this client. tw5 Outcome: 19:55 Decision to Hospitalize by Provider. jl9 23:27 Admitted to ER Hold. Please see [facility] for further documentation. tw5 23:27 Condition: stable 23:27 Discharge instructions given to patient, Instructed on the need for admit. 12/14 05:56 Patient left the ED. as6 Signatures: Dispatcher [employer] EDMS Dangelo Cifuentes em1 Spencer Lawrence mw2 Lacey Nguyen tw5 Flynn Stoddard RN RN as6 Lacey Jones RN RN tp1 Joanie Napier PA PA sb3 Randy Cain jl9 Nathalia Ledbetter, DAGO RN aa9 Corrections: (The following items were deleted from the chart) 12/13 18:49 18:05 Musculoskeletal: Circulation, motion, and sensation intact. tp1 tp1
--- NOTE | 2021-12-13 19:57 | EDPHYS ---
Physician Documentation [facility] Name: George Ryder Age: 66 yrs Sex: Male : 1955 Arrival Date: 12/13/2021 Time: 18:14 Bed 13 Private MD: ED Physician Mitch Sesay HPI: 12/13 19:04 This 66 yrs old Male presents to ER via EMS with complaints of generalized weakness. jl9 Patient lives at an assisted facility and EMS was called by staff due to being difficult to wake up per staff. EMS reports patient AAOxPPTE and he states "I just take a bit to wake up".. 19:04 Onset: The symptoms/episode began/occurred just prior to arrival. jl9 Historical: - Allergies: 18:27 No Known Allergies; tp1 - PMHx: 18:27 CHF; High Cholesterol; Diabetes - NIDDM; Hypertension; Prostate; PULMONARY HYPERTENSION;tp1 - Immunization history:: Client reports receiving the 2nd dose of the Covid vaccine. - Social history:: Smoking status: Patient denies any tobacco usage or history of. ROS: 19:06 Constitutional: Negative for fever, chills, and weight loss. jl9 19:06 ENT: Negative for injury, pain, and discharge, Neck: Negative for injury, pain, and swelling, Cardiovascular: Negative for chest pain, palpitations, and edema, Respiratory: Negative for shortness of breath, cough, wheezing, and pleuritic chest pain, Abdomen/GI: Negative for abdominal pain, nausea, vomiting, diarrhea, and constipation, Back: Negative for injury and pain, : Negative for injury, bleeding, discharge, and swelling, MS/Extremity: Negative for injury and deformity, Skin: Negative for injury, rash, and discoloration. 19:06 Psych: Negative for depression, anxiety, suicide ideation, homicidal ideation, and hallucinations, Allergy/Immunology: Negative for hives, rash, and allergies, Endocrine: Negative for neck swelling, polydipsia, polyuria, polyphagia, and marked weight changes, Hematologic/Lymphatic: Negative for swollen nodes, abnormal bleeding, and unusual bruising. 19:06 Constitutional: Positive for malaise, Negative for body aches, chills, fever, poor PO intake. 19:06 Neuro: Positive for weakness, Negative for altered mental status, dizziness, syncope, tingling. Exam: 19:07 Constitutional: This is a well developed, well nourished patient who is awake, alert, jl9 and in no acute distress. 19:07 Head/Face: Normocephalic, atraumatic. Eyes: Pupils equal round and reactive to light, extra-ocular motions intact. Lids and lashes normal. Conjunctiva and sclera are non-icteric and not injected. Cornea within normal limits. Periorbital areas with no swelling, redness, or edema. ENT: Mucous membranes moist. Neck: Trachea midline, no thyromegaly or masses palpated, and no cervical lymphadenopathy. Supple, full range of motion without nuchal rigidity, or vertebral point tenderness. No Meningismus. Chest/axilla: Normal chest wall appearance and motion. Nontender with no deformity. No lesions are appreciated. Cardiovascular: Regular rate and rhythm with a normal S1 and S2. No gallops, murmurs, or rubs. Normal PMI, no JVD. No pulse deficits. Respiratory: Lungs have equal breath sounds bilaterally, clear to auscultation and percussion. No rales, rhonchi or wheezes noted. No increased work of breathing, no retractions or nasal flaring. Abdomen/GI: Soft, non-tender, with normal bowel sounds. No distension or tympany. No guarding or rebound. No evidence of tenderness throughout. Back: No spinal tenderness. No costovertebral tenderness. Full range of motion. Skin: Warm, dry with normal turgor. Normal color with no rashes, no lesions, and no evidence of cellulitis. MS/ Extremity: Pulses equal, no cyanosis. Neurovascular intact. Full, normal range of motion. 19:07 Constitutional: The patient appears lethargic. 19:07 Neuro: Exam negative for cranial nerve deficits, Orientation: to person, place, time \\T\\ situation. Mentation: slow to respond. 19:08 Psych: Awake, alert, with orientation to person, place and time. Behavior, mood, and jl9 affect are within normal limits. Vital Signs: 18:20 BP 96 / 66; Pulse 104; Resp 18; Pulse Ox 97% on 2 lpm NC; Weight 91 kg; Height 6 ft. 4 tp1 in. (193.04 cm); 18:20 Body Mass Index 24.42 (91.00 kg, 193.04 cm) tp1 MDM: 18:19 Patient medically screened. jl9 19:08 Data reviewed: vital signs, nurses notes, lab test result(s), EKG, radiologic studies. jl9 19:42 Differential Diagnosis altered mental status, sepsis, CHF, Hypercapnea.. Test jl9 interpretation: by ED physician or midlevel provider: ECG, NSR, No ST elevation. 95 BPM.. 19:55 Counseling: I had a detailed discussion with the patient and/or guardian regarding: the jl9 historical points, exam findings, and any diagnostic results supporting the discharge/admit diagnosis, lab results, radiology results, the need for further work-up and treatment in the hospital. Physician consultation: Dennis Espinosa MD was called at 19:56, was contacted at 19:56, regarding admission, and will see patient in inpatient room, Spoke to MAGDALENO Negrete. . 12/13 18:31 Order name: Basic Metabolic Panel; Complete Time: 19:40 [facility] 12/13 18:31 Order name: CBC with Diff; Complete Time: 19:28 [facility] 12/13 18:31 Order name: NT PRO-BNP; Complete Time: 19:40 9 12/13 18:31 Order name: Troponin HS; Complete Time: 19:40 [facility] 12/13 18:31 Order name: SARS-COV-2 RT PCR (Document "Date of Onset" if Symptomatic); Complete Time: jl9 20:37 12/13 19:01 Order name: ABG; Complete Time: 19:57 [facility] 12/13 20:48 Order name: Urine Dipstick-Ancillary; Complete Time: 20:53 EDID 12/14 00:52 Order name: Creatine Phosphokinase; Complete Time: 01:03 EDID 12/14 00:52 Order name: CKMB Creatine Kinase MB; Complete Time: 01:03 EDMS 12/14 00:52 Order name: Troponin High Sensitivity; Complete Time: 01:03 EDMS 12/14 01:42 Order name: Glucose, Ancillary Testing; Complete Time: 01:44 EDMS 12/14 03:03 Order name: CBC with Automated Diff; Complete Time: 03:21 EDMS 12/14 03:21 Order name: Comprehensive Metabolic Panel; Complete Time: 04:13 EDMS 12/14 03:21 Order name: Phosphorus; Complete Time: 04:13 EDMS 12/13 18:31 Order name: XRAY Chest (1 view); Complete Time: 19:48 9 12/13 18:31 Order name: EKG; Complete Time: 18:34 9 12/13 18:31 Order name: Cardiac monitoring; Complete Time: 19:04 9 12/13 18:31 Order name: EKG - Nurse/Tech; Complete Time: 19:40 9 12/13 18:31 Order name: IV Saline Lock; Complete Time: 19:04 9 12/13 18:31 Order name: Labs collected and sent; Complete Time: 19:04 9 12/13 18:31 Order name: O2 Per Protocol; Complete Time: 19:04 9 12/13 18:31 Order name: O2 Sat Monitoring; Complete Time: 19:04 9 12/13 18:31 Order name: CT Head Brain wo Cont; Complete Time: 19:39 9 12/13 18:33 Order name: Urine Dipstick-Ancillary (obtain specimen); Complete Time: 20:48 9 12/14 03:21 Order name: Lipid Profile; Complete Time: 04:13 EDMS 12/14 03:21 Order name: Magnesium; Complete Time: 04:13 EDMS 08 03:21 Order name: Thyroid Stimulating Hormone; Complete Time: 04:13 EDMS Administered Medications: 20:48 Drug: Lasix (furosemide) 40 mg Route: IVP; Site: left forearm; aa9 Disposition Summary: 12/13/21 19:55 Hospitalization Ordered Hospitalization Status: Observation jl9 Condition: Fair jl9 Problem: new jl9 Symptoms: are unchanged jl9 Bed/Room Type: Standard jl9 Provider: Neha Jacobsen(12/14/21 01:04) sb3 Location: Telemetry/MedSurg (observation)(12/14/21 03:47) cg Room Assignment: 213(12/14/21 03:47) cg Diagnosis - Acute on chronic combined systolic (congestive) and diastolic (congestive) heart jl9 failure Forms: - Medication Reconciliation Form jl9 - SBAR form jl9 Signatures: Dispatcher [employer] EDEunice Reyna RN RN cg Lacey Jones RN RN [email or web address] Joanie Napier PA PA sb3 Randy Cain jl9 Nathalia Ledbetter RN RN aa9 Corrections: (The following items were deleted from the chart) 20:39 19:55 Telemetry/MedSurg (observation) jl9 cg 20:39 19:55 sumi9 cg 12/14 01:04 12/13 19:55 Dennis Espinosa jl9 sb3 12/14 03:47 12/13 20:39 [facility] ER HOLD cg cg 12/14 03:47 12/13 20:39 ERHOLD- cg cg
[2021-12-13] MEDS ORDERED: FUROSEMIDE 40 MG/4 ML VIAL ONE (20:21)
--- NOTE | 2021-12-13 20:44 | P.HP ---
Certification for Inpatient Patient admitted to: Inpatient With expected LOS: <2 Midnights Patient will require the following post-hospital care: None Practitioner: I am a practitioner with admitting privileges, knowledge of patient current condition, hospital course, and medical plan of care. Services: Services provided to patient in accordance with Admission requirements found in Title 42 Section 412.3 of the Code of Federal Regulations Patient History Date of Service: 12/13/21 Reason for admission: CHF, Resp Failure History of Present Illness: Patient is a 66-year-old male with pulmonary hypertension, diastolic CHF, CAD, and NIDDM who presented to the ED via EMS for reported unresponsiveness. Patient's assisted living facility called EMS because they could not wake him. During transport, patient was alert and oriented x 4 and in no distress. He states that he just "takes a bit" to wake up. Work up in the ED revealed BNP of 15,000, troponin HS 246.8, BUN 25. Chest x-ray showed bilateral interstitial lung opacities that may be chronic or indicate mild interstitial pulmonary edema or pneumonitis. ABG significant for pH 7.3, pCO2 77, HCO3 38. Urine 3+ leuk esterase. Head CT negative. He was given 40 mg Lasix. Upon my assessment, patient reports he feels fine and has no complaints. Patient was admitted for very similar episode of hypercapneic respiratory failure/CHF exacerbation about 2 months ago, labs appear similar. Patient is saturating appropriately on home O2. He is admitted for further evaluation and treatment. Allergies No Known Allergies Allergy (Verified 08/03/18 10:49) Home medications list reviewed: Yes Home Medications: Allopurinol 300 mg PO DAILY 10/19/21 Baclofen [Lioresal*] 10 mg PO DAILY 10/19/21 Mirtazapine [Remeron*] 15 mg PO BEDTIME 10/19/21 Mupirocin Calcium [Bactroban] 1 appl TP BID 10/19/21 Sildenafil Citrate 20 mg PO Q12H 10/19/21 Arformoterol Tartrate [Brovana] 15 mcg NEB BIDRESP #60 vial.neb 10/21/21 Metoprolol Tartrate [Lopressor*] 25 mg PO BID 6AM 6PM #60 tab 10/21/21 Mirtazapine [Remeron*] 15 mg PO BEDTIME #30 tab 10/21/21 Spironolactone [Aldactone*] 25 mg PO BID #60 tab 10/21/21 predniSONE [Prednisone*] 20 mg PO BID #30 tab 10/21/21 - Past Medical/Surgical History Diabetic: Yes -: HTN -: DM -: Hyperlipidemia -: Pulmonary hypertension -: Diastolic CHF -: cataract sx -: appendectomy Psychosocial/ Personal History: Patient lives at an assisted living facility. - Family History Father -: Heart disease, Hypertension, Diabetes - Social History Smoking Status: Former smoker Alcohol use: No CD- Drugs: No Caffeine use: No Place of Residence: Home Review of Systems 10-point ROS is otherwise unremarkable Physical Examination - Physical Exam General: Alert, In no apparent distress HEENT: Atraumatic, PERRLA, EOMI, Sclerae nonicteric Neck: Supple, 2+ carotid pulse no bruit, No LAD, Without JVD or thyroid abnormality Respiratory: Crackles/rales Cardiovascular: No edema, Regular rate/rhythm, Normal S1 S2 Gastrointestinal: Normal bowel sounds, No tenderness Musculoskeletal: No tenderness Integumentary: No rashes Neurological: Normal speech, Sensation intact, Normal affect - Studies Laboratory Data (last 24 hrs) 12/13/21 18:57: WBC 7.3, Hgb 14.6, Hct 45.4, Plt Count 338 12/13/21 18:57: Sodium 140, Potassium 4.8, BUN 25 H, Creatinine 0.97, Glucose 133 H Assessment and Plan - Problems (Diagnosis) (1) Congestive heart failure Current Visit: Yes Status: Acute Qualifiers: Heart failure type: diastolic Heart failure chronicity: acute on chronic Qualified Code(s): I50.33 - Acute on chronic diastolic (congestive) heart failure (2) Pulmonary hypertension Current Visit: Yes Status: Chronic (3) Hypercapnic respiratory failure Current Visit: Yes Status: Acute Qualifiers: Chronicity: acute on chronic Qualified Code(s): J96.22 - Acute and chronic respiratory failure with hypercapnia (4) Coronary artery disease Current Visit: Yes Status: Chronic Qualifiers: Coronary Disease-Associated Artery/Lesion type: [place] artery [place] vs. transplanted heart: [place] heart Associated angina: without angina Qualified Code(s): I25.10 - Atherosclerotic heart disease of [place] coronary artery without angina pectoris (5) Type 2 diabetes mellitus Current Visit: Yes Status: Chronic Qualifiers: Diabetes mellitus mcfp insulin use: without mcfp use Diabetes mellitus complication status: with hyperglycemia Qualified Code(s): E11.65 - Type 2 diabetes mellitus with hyperglycemia (6) UTI (urinary tract infection) Current Visit: Yes Status: Acute Qualifiers: Urinary tract infection type: acute cystitis Hematuria presence: with hematuria Qualified Code(s): N30.01 - Acute cystitis with hematuria - Plan -BiPAP as needed. Patient in no respiratory distress. Repeat ABG in the morning. -Continue IV Lasix. 1500 cc/day fluid restriction. Monitor intake and output. Echo in October 2021 with normal EF. -Troponin elevated, similar on previous admission, likely demand ischemia. Will recheck. -Monitor on telemetry. Cardiology consulted. Patient denies any chest pain at this time. -Urine suggestive of UTI. Ceftriaxone ordered daily. -ACHS Accu-Chek, mild sliding scale insulin and diabetic diet. -Monitor and replete electrolytes per protocol -Reconcile and continue home medications -Lovenox for VTE ppx -Full code Discharge Plan: Home Plan to discharge in: 48 Hours - Advance Directives Does patient have a Living Will: No Does patient have a Durable POA for Healthcare: No - Code Status/Comfort Care Code Status Assessed: Yes (Full) Critical Care: No Time Spent Managing Pts Care (In Minutes): 50
[2021-12-13 20:48] LABS: Urine Blood 3+ (Negative); Urine Glucose Negative (Negative); Urine Protein 1+ (Negative); Urine pH 6.5 (5.0-7.0)
[2021-12-13] MEDS ORDERED: ACETAMINOPHEN 500 MG TAB PO PRN (23:40)
[2021-12-13] MEDS: INSULIN -REGULAR HUMAN 50 UNIT/0.5 ML ML SQ SCH (23:40)
[2021-12-13] MEDS ORDERED: ALBUTEROL 2.5 MG/3 ML NEB SOL NEB PRN (23:40)
[2021-12-14 00:11] VITALS: BMI 24.4
[2021-12-14 00:51] LABS: CKMB Creatine Kinase MB 1.9 ng/mL (1.0-3.6)
[2021-12-14 00:52] LABS: Troponin High Sensitivity 233.1 pg/mL (<58.9)
[2021-12-14 03:00] LABS: Absolute Lymphocytes (CBC) 1.2 K/uL (0.7-4.9); Hematocrit 43.7 % (39.6-49.0); MCV 93.6 fL (80-100); RBC Red Blood Cell Count 4.67 M/uL (4.33-5.43)
[2021-12-14 03:21] LABS: Bilirubin Total 0.5 mg/dL (0.2-1.0); Magnesium 2.1 mg/dL (1.8-2.4); Phosphorus 3.7 mg/dL (2.5-4.9); Potassium 4.1 mmol/L (3.5-5.1); Protein, Total 6.8 g/dL (6.4-8.2); Thyroid Stimulating Hormone 0.875 uIU/mL (0.360-3.740)
[2021-12-14 06:19] LABS: Arterial Blood Carboxyhemoglob 1.4 % (0-1.5); Blood Gas Oxyhemoglobin 91.4 % (94-97); Blood O2 Saturation 93.9 % (92-98.5)
[2021-12-14] MEDS: INSULIN -REGULAR HUMAN 50 UNIT/0.5 ML ML SQ SCH ×4 (07:30→21:01)
[2021-12-14] MEDS ORDERED: CEFTRIAXONE 1,000 MG in NA CHLORIDE 0.9% 50 ML IVPB SCH (09:00)
[2021-12-14] MEDS ORDERED: FUROSEMIDE 20 MG/ 2ML VIAL IV SCH (09:00)
[2021-12-14] MEDS: ENOXAPARIN 40 MG/0.4 ML SQ SCH (09:32)
--- NOTE | 2021-12-14 11:39 | CON ---
Date of Consultation: 12/14/2021 Reason For Consultation: Pulmonary hypertension and congestive heart failure. History Of Present Illness: Mr. Ryder is 66. Has severe pulmonary hypertension with right ventricula r systolic pressure more than 100 by angiography. He has diabetes, dyslipidemia, congestive heart fa ilure mostly right-sided. He has a normal ejection fraction. Comes in with shortness of breath, CO2 retention with CO2 of 85, pO2 of 76 with a pH of 7.28, troponin was high at 246 and decreased to 223 , not consistent with acute coronary syndrome. He denied any chest pain. Denied any syncope. His b iggest complaint was shortness of breath and weakness and altered mental status. Denied any fever or chills or cough. Denied any palpitation or syncope. Allergies: NONE. Review of Systems: Negative. Social History: Negative. Family History: Noncontributory. Medications: Include sildenafil, prednisone, Lopressor, allopurinol, inhalers, and Aldactone. Physical Examination: Vital Signs: Stable. He was on the BiPAP with good O2 saturation. He was in sinus rhythm. HEENT: Negative. Neck: Supple with no bruit. Chest: Revealed crackles throughout with expiratory wheezing. Abdomen: Obese, but benign. Extremities: Revealed 1+ edema. Diagnostic Data: As stated earlier. Creatinine is 0.92. Impression And Plan: 1.Acute on chronic exacerbation of severe pulmonary hypertension and right-sided failure. 2.Diabetes. 3.Dyslipidemia. 4.CO2 retention. 5.Elevated troponin secondary to demand ischemia from hypoxia. I agree with his present regimen inc luding steroid, sildenafil, allopurinol, Lopressor, inhalers, and Aldactone. It may be starkey to treat him off antibiotics which he is on. He is on Lovenox as well. He is on Lasix. He is on insulin. I think we need to consider increasing in his sildenafil dose. Get pulmonary consultation in that re [place]. Another consideration will be to add hydralazine and/or isosorbide, which work well for pulmon julita hypertension and right-sided failure. I will discuss the case further with Dr. Jacobsen. We will co mc to follow him. NB/MODL Voice ID: [id number] Report ID: [id number]
--- NOTE | 2021-12-14 11:42 | P.CNS ---
Date of Consult: 12/14/21 Reason for Consult: Respiratory failure Chief Complaint: CHF, Resp Failure History of Present Illness: Patient is 66 years of age with a history of pulmonary hypertension which I suspect is secondary from his diastolic congestive heart failure, also has metabolic syndrome the diabetes gurney artery disease presented to the emergency room was found unresponsive. He has some interstitial changes on his x-ray with the hypercapnia on arterial blood gases with compensatory increase in the bicarbonate. Patient has a history of for severe hypertension and is on sildenafil he was seen last visit with me again with hypoxic hypercapnia respiratory failure Allergies No Known Allergies Allergy (Verified 08/03/18 10:49) Home Medications: Allopurinol 300 mg PO DAILY 10/19/21 Baclofen [Lioresal*] 10 mg PO DAILY 10/19/21 Mirtazapine [Remeron*] 15 mg PO BEDTIME 10/19/21 Mupirocin Calcium [Bactroban] 1 appl TP BID 10/19/21 Sildenafil Citrate 20 mg PO Q12H 10/19/21 Arformoterol Tartrate [Brovana] 15 mcg NEB BIDRESP #60 vial.neb 10/21/21 Metoprolol Tartrate [Lopressor*] 25 mg PO BID 6AM 6PM #60 tab 10/21/21 Mirtazapine [Remeron*] 15 mg PO BEDTIME #30 tab 10/21/21 Spironolactone [Aldactone*] 25 mg PO BID #60 tab 10/21/21 predniSONE [Prednisone*] 20 mg PO BID #30 tab 10/21/21 - Past Medical/Surgical History Diabetic: Yes -: HTN -: DM -: Hyperlipidemia -: Pulmonary hypertension -: Diastolic CHF -: cataract sx -: appendectomy Psychosocial/ Personal History: Patient lives at an assisted living facility. - Family History Father Medical History: Heart disease, Hypertension, Diabetes - Social History Smoking Status: Unknown if ever smoked Alcohol use: No CD- Drugs: No Caffeine use: No Place of Residence: Home Physical Examination Temp Pulse Resp BP Pulse Ox 96.8 F 102 H 16 100/65 96 12/14/21 08:00 12/14/21 09:32 12/14/21 08:00 12/14/21 09:32 12/14/21 08:00 Laboratory Data (last 24 hrs) 12/13/21 18:57: WBC 7.3, Hgb 14.6, Hct 45.4, Plt Count 338 12/13/21 18:57: Sodium 140, Potassium 4.8, BUN 25 H, Creatinine 0.97, Glucose 133 H - Problems (1) Acute and chronic respiratory failure ([id number]) Current Visit: Yes Status: Acute Plan: Patient is 66 years of age admitted with acute and chronic respiratory failure and responsiveness he has chronic hypercapnia moderate pulmonary hypertension on sildenafil diastolic dysfunction just x-ray shows diminished lung volumes he's a former smoker. The patient may well have underlying obstructive airways disease recommend a trial of nebulized bronchodilators PO steroids and IV Diamox avoid loop diuretics may precipitate hypokalemia elevated bicarbonate and underlying suppression of the respiratory drive with consequent HypercarbiaPatient's vital signs are stable no evidence of substance DC antibiotics for now troponins are elevated I suspect is from demand hypoxemia Qualifiers: Respiratory failure complication: hypoxia and hypercapnia Qualified Code(s): J96.21 - Acute and chronic respiratory failure with hypoxia; J96.22 - Acute and chronic respiratory failure with hypercapnia
[2021-12-14] MEDS: ACETAZOLAMIDE 500 MG IV IV SCH ×2 (12:00→21:00)
[2021-12-14] MEDS: ARFORMOTEROL TARTRATE 15 MCG/2 ML VIAL.NEB NEB SCH ×2 (13:23→19:30)
[2021-12-14] MEDS: ALBUTEROL 2.5 MG/3 ML NEB SOL IH SCH ×2 (13:23→19:30)
[2021-12-14] MEDS: dexAMETHasone 4 MG TAB PO SCH ×2 (13:40→21:02)
--- NOTE | 2021-12-14 13:45 | EKG ---
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 RESULTS: Intervals: Rate: 95 [place]: 176 QRSD: 74 QT: 388 QTc: 487 [place]: P: 36 [place]: 176 QRS: 93 T: -3 INTERPRETIVE STATEMENTS: Normal sinus rhythm Possible Left atrial enlargement Possible Right ventricular hypertrophy Inferior infarct, age undetermined ST & Marked T wave abnormality, consider anterolateral ischemia Abnormal ECG Compared to ECG 10/18/2021 20:13:07 T-wave abnormality now present Sinus tachycardia no longer present ST (T wave) deviation no longer present Myocardial infarct finding still present Possible ischemia still present Electronically Signed On 12-14-21 13:43:23 CDT by Yared Olivares
[2021-12-14] MEDS ORDERED: ALBUTEROL 2.5 MG/3 ML NEB SOL NEB PRN (14:00)
[2021-12-14 14:09] LABS: Arterial Blood Carboxyhemoglob 1.8 % (0-1.5); Blood Gas Oxyhemoglobin 93.9 % (94-97); Blood O2 Saturation 96.9 % (92-98.5)
[2021-12-14] MEDS ORDERED: WATER FOR INJ,STERILE 10 ML ONE (21:07)
[2021-12-15] MEDS: ALBUTEROL 2.5 MG/3 ML NEB SOL IH SCH ×4 (01:25→19:40)
[2021-12-15] MEDS: INSULIN -REGULAR HUMAN 50 UNIT/0.5 ML ML SQ SCH ×4 (07:30→20:52)
[2021-12-15] MEDS: ARFORMOTEROL TARTRATE 15 MCG/2 ML VIAL.NEB NEB SCH (07:50)
[2021-12-15] MEDS: ENOXAPARIN 40 MG/0.4 ML SQ SCH (09:27)
[2021-12-15] MEDS: ACETAZOLAMIDE 500 MG IV IV SCH (09:27)
[2021-12-15] MEDS: dexAMETHasone 4 MG TAB PO SCH ×2 (09:27→20:51)
--- NOTE | 2021-12-15 11:50 | P.PN ---
Subjective Date of Service: 12/15/21 Chief Complaint: CHF, Resp Failure Subjective: Improving (Patient is improving he is more alert responsive) Review of Systems General: Weakness Respiratory: Shortness of Breath Physical Examination - Vital Signs Temperature: 97.0 F Blood Pressure: 122/78 Pulse: 80 Respirations: 20 Pulse Ox (%): 100 - Physical Exam General: Alert, In no apparent distress, Oriented x3 Respiratory: Clear to auscultation bilaterally, Diminished Cardiovascular: No edema, Regular rate/rhythm Assessment And Plan - Current Problems (Diagnosis) (1) Acute and chronic respiratory failure ([id number]) Current Visit: Yes Status: Acute Plan: Patient admitted with respiratory failure presumed underlying obstructive airways disease continue with bronchodilators at home change him over to Dulera 2 puffs twice a day which he can continue in the group home Decadron low-dose 10 mg once a day changed to p.o. Diamox Fax A request for a noninvasive ventilator vital signs are stable Qualifiers: Respiratory failure complication: hypoxia and hypercapnia Qualified Code(s): J96.21 - Acute and chronic respiratory failure with hypoxia; J96.22 - Acute and chronic respiratory failure with hypercapnia
--- NOTE | 2021-12-15 12:27 | P.PN ---
Subjective Date of Service: 12/14/21 Subjective: No new changes, No C/O voiced, Improving Review of Systems 10-point ROS is otherwise unremarkable Physical Examination - Vital Signs Temperature: 97.0 F Blood Pressure: 122/78 Pulse: 80 Respirations: 20 Pulse Ox (%): 100 - Physical Exam General: Alert, In no apparent distress, Moderate distress HEENT: Atraumatic, PERRLA, EOMI Neck: Supple, JVD not distended Respiratory: Diminished, Crackles/rales Cardiovascular: Regular rate/rhythm, Normal S1 S2, No murmurs Gastrointestinal: Normal bowel sounds, Soft and benign, Non-distended, No tenderness Musculoskeletal: No clubbing, No swelling, No tenderness Neurological: Sensation intact, Cranial nerves 3-12 intact - Studies Medications List Reviewed: Yes Assessment & Plan - Problems (Diagnosis) (1) Acute and chronic respiratory failure ([id number]) Current Visit: Yes Status: Acute Qualifiers: Respiratory failure complication: hypoxia and hypercapnia Qualified Code(s): J96.21 - Acute and chronic respiratory failure with hypoxia; J96.22 - Acute and chronic respiratory failure with hypercapnia (2) Congestive heart failure Current Visit: Yes Status: Acute Qualifiers: Heart failure type: diastolic Heart failure chronicity: acute on chronic Qualified Code(s): I50.33 - Acute on chronic diastolic (congestive) heart failure (3) Hypercapnic respiratory failure Current Visit: Yes Status: Acute Qualifiers: Chronicity: acute on chronic Qualified Code(s): J96.22 - Acute and chronic respiratory failure with hypercapnia (4) Coronary artery disease Current Visit: Yes Status: Chronic Qualifiers: Coronary Disease-Associated Artery/Lesion type: [place] artery [place] vs. 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 Echocardiogram 2. Repeat ABGs 3. Pulmonary consultation 4. Cardiology consultation 5. Aggressive diuresis 6. Strict I's and O's 7. Repeat CXR 8. Daily weights 9. Arrange for outpatient BiPAP 10. Education regarding diet and treatment of congestive heart failure Discharge Plan: Home Plan to discharge in: Greater than 2 days - Advance Directives Does patient have a Living Will: No Does patient have a Durable POA for Healthcare: No - Code Status/Comfort Care Code Status Assessed: Yes Code Status: Full Code Critical Care: No Time Spent Managing PTS Care (In Minutes): 35
--- NOTE | 2021-12-15 12:43 | P.PN ---
Date of Service: 12/15/21 Subjective Subjective: Patient is off of BiPAP. Patient is clinically doing better. Patient feels much better. Review of Systems 10-point ROS is otherwise unremarkable Physical Examination - Vital Signs Reviewed - Physical Exam General: Alert, In no apparent distress, Moderate distress Respiratory: Diminished, Crackles/rales Cardiovascular: Regular rate/rhythm, Normal S1 S2, No murmurs Gastrointestinal: Normal bowel sounds, Soft and benign, Non-distended, No tenderness Musculoskeletal: No clubbing, No swelling, No tenderness Neurological: Sensation intact, Cranial nerves 3-12 intact Assessment & Plan - Problems (Diagnosis) (1) Acute and chronic respiratory failure ([id number]) Current Visit: Yes Status: Acute Qualifiers: Respiratory failure complication: hypoxia and hypercapnia Qualified Code(s): J96.21 - Acute and chronic respiratory failure with hypoxia; J96.22 - Acute and chronic respiratory failure with hypercapnia (2) Congestive heart failure Current Visit: Yes Status: Acute Qualifiers: Heart failure type: diastolic Heart failure chronicity: acute on chronic Qualified Code(s): I50.33 - Acute on chronic diastolic (congestive) heart failure (3) Hypercapnic respiratory failure Current Visit: Yes Status: Acute Qualifiers: Chronicity: acute on chronic Qualified Code(s): J96.22 - Acute and chronic respiratory failure with hypercapnia (4) Coronary artery disease Current Visit: Yes Status: Chronic Qualifiers: Coronary Disease-Associated Artery/Lesion type: [place] artery [place] vs. 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 Echocardiogram reviewed 2. ABGs revealed hypercapnia resolved 3. Pulmonary consultation appreciated 4. Cardiology consultation appreciated 5. Aggressive diuresis 6. Strict I's and O's 7. Repeat CXR 8. Daily weights 9. Arrange for outpatient BiPAP 10. Education regarding diet and treatment of congestive heart failure Discharge Plan: Home Plan to discharge in: Greater than 2 days - Advance Directives Does patient have a Living Will: No Does patient have a Durable POA for Healthcare: No - Code Status/Comfort Care Code Status Assessed: Yes Code Status: Full Code Critical Care: No Time Spent Managing PTS Care (In Minutes): 35
--- NOTE | 2021-12-15 13:43 | PN ---
Date of Progress Note: 12/15/2021 Mr. Ryder today is feeling better. Blood pressure is 122/78 in sinus rhythm. Temperature is 97.0, O2 saturation is 100%. Remains on CPAP and BiPAP. His troponins have decreased from 246 to 233. This is not an acute coronary syndrome. This is all demand ischemia. He is presently on Diamox, inhalers , Lovenox, Lasix, insulin, antibiotics, steroid. As I mentioned earlier in my dictation, he may be a good candidate for isosorbide and hydralazine mostly because of his problem as really severe pulmona ry hypertension. He should definitely continue his sildenafil. I will sign off his case for now. DOMENIC/GEM Voice ID: [id number] Report ID: [id number]
[2021-12-15] MEDS: DULERA 200/5 (MOMETASONE/FORMOTEROL) INHALER IH SCH (20:52)
[2021-12-16] MEDS: ALBUTEROL 2.5 MG/3 ML NEB SOL IH SCH ×2 (02:50→07:43)
[2021-12-16 06:25] LABS: Absolute Lymphocytes (CBC) 0.6 K/uL (0.7-4.9); Hematocrit 40.2 % (39.6-49.0); Lymphocytes % 10.1 % (15.3-44.8); MCV 92.7 fL (80-100); MPV 7.1 fL (7.6-11.3); RBC Red Blood Cell Count 4.34 M/uL (4.33-5.43)
[2021-12-16 06:34] LABS: Magnesium 2.5 mg/dL (1.8-2.4); Potassium 4.9 mmol/L (3.5-5.1)
--- NOTE | 2021-12-16 07:26 | RAD REPORT ---
EXAM DESCRIPTION: RAD - Chest Single View - 12/16/2021 5:27 am CLINICAL HISTORY: pneumonia COMPARISON: Chest Single View dated 12/13/2021; Chest Single View dated 10/18/2021; Chest Single View d ated 06/30/2020; Chest Single View dated 06/26/2020; Chest For Pe Angio dated 10/18/2021 FINDINGS: Lines: None. Lungs: Interstitial prominence is decreased. Mild basilar opacities likely reflecting some component of atelectasis. The lung volumes are low but similar. Pleural: No significant pleural effusions or pneumothorax. Cardiac: The heart size is within normal limits. Bones: No acute fractures. Other: IMPRESSION: Aeration of the lungs has mildly improved compared with 12/13/2021. Lung volumes remain low.
[2021-12-16] MEDS: INSULIN -REGULAR HUMAN 50 UNIT/0.5 ML ML SQ SCH ×2 (07:30→11:30)
[2021-12-16 08:29] VITALS: O2SAT 96
[2021-12-16] MEDS ORDERED: acetaZOLAMIDE 250 MG TAB PO SCH (09:00)
[2021-12-16] MEDS: DULERA 200/5 (MOMETASONE/FORMOTEROL) INHALER IH SCH (10:15)
[2021-12-16] MEDS: ENOXAPARIN 40 MG/0.4 ML SQ SCH (10:15)
[2021-12-16] MEDS: dexAMETHasone 4 MG TAB PO SCH (10:15)
[2021-12-16 13:39] VITALS: BP 117/65; TEMP 97.6
== END 2021-12-16 15:05 | disposition home or self-care (01) | DRG 291 ==
LOC: ER 18:03 → ERHOLD 20:34 → 2ND 12-14 03:55
PROVIDERS: ADMIT Hospitalist; ATTEND Hospitalist
PROC: 5A09457 Assistance with Respiratory Ventilation, 24-96 Consecutive Hours, Continuous Positive Airway Pressure (ICD-10-PCS; principal; 2021-12-14)
DX: I11.0 Hypertensive heart disease with heart failure (principal); I50.33 Acute on chronic diastolic (congestive) heart failure; J96.22 Acute and chronic respiratory failure with hypercapnia; J96.21 Acute and chronic respiratory failure with hypoxia; N30.01 Acute cystitis with hematuria; I24.8 Other forms of acute ischemic heart disease; I27.20 Pulmonary hypertension, unspecified; I25.10 Atherosclerotic heart disease of native coronary artery without angina pectoris; E11.65 Type 2 diabetes mellitus with hyperglycemia; E78.5 Hyperlipidemia, unspecified; J44.9 Chronic obstructive pulmonary disease, unspecified; Z20.822 Contact with and (suspected) exposure to COVID-19
CPT/HCPCS: 36415; 70450; 71045; 80048; 80053; 80061; 81003; 82550; 82553; 82805; 82947; 83735; 83880; 84100; 84443; 84484; 85025; 93005; 94660; 94760; 96374; 97161; 99285; J1120; J1650; J1815; J1940; J3535; J7605; J8540; U0003

== ENCOUNTER 2022-01-21 19:23 | Inpatient (IN) | payer OTHER ==
[2022-01-21] MEDS ORDERED: BENZONATATE 100 MG CAP PO ONE (21:05)
--- NOTE | 2022-01-21 21:12 | RAD REPORT ---
EXAM DESCRIPTION: RAD - Chest Single View - 01/21/2022 8:56 pm CLINICAL HISTORY: SOB Chest pain. COMPARISON: Chest Single View dated 12/16/2021; Chest Single View dated 12/13/2021; Chest Single View d ated 10/18/2021; Chest Single View dated 06/30/2020 FINDINGS: Portable technique limits examination quality. Mild bilateral interstitial prominence is seen, greater on the right. This is likely related to viral infection. The heart is mildly enlarged in size. No displaced fractures.
[2022-01-21 22:22] LABS: Arterial Blood Carboxyhemoglob 1.5 % (0-1.5); Blood Gas Oxyhemoglobin 95.2 % (94-97); Blood O2 Saturation 97.9 % (92-98.5)
[2022-01-21] MEDS ORDERED: FUROSEMIDE 20 MG/ 2ML VIAL ONE (22:29)
[2022-01-21 22:30] LABS: Absolute Lymphocytes (CBC) 0.5 K/uL (0.7-4.9); Hematocrit 44.5 % (39.6-49.0); Lymphocytes % 6.1 % (15.3-44.8); MCV 96.2 fL (80-100); MPV 7.8 fL (7.6-11.3); RBC Red Blood Cell Count 4.63 M/uL (4.33-5.43)
[2022-01-21] MEDS ORDERED: dexAMETHasone 10 MG/ML VIAL ONE (22:30)
[2022-01-21] MEDS ORDERED: CIPROFLOXACIN 400mg IV 0 MG/0 ML BAG IV ONE (22:30)
[2022-01-21 22:40] LABS: Protime INR 1.02
[2022-01-21 22:50] LABS: Ferritin 130.4 ng/mL (26-388)
[2022-01-21 22:51] LABS: Albumin 3.2 g/dL (3.4-5.0); Bilirubin Direct 0.2 mg/dL (0-0.2); Bilirubin Total 0.4 mg/dL (0.2-1.0); Potassium 4.3 mmol/L (3.5-5.1); Protein, Total 6.9 g/dL (6.4-8.2)
[2022-01-21 22:57] LABS: Troponin High Sensitivity 71.2 pg/mL (<58.9)
--- NOTE | 2022-01-21 23:05 | ER ---
Nurse's Notes [facility] Name: George Ryder Age: 66 yrs Sex: Male : 1955 Arrival Date: 01/21/2022 Time: 19:45 Bed 14 Private MD: Diagnosis: SARS-associated coronavirus as the cause of diseases classified elsewhere;Hypoxia Presentation: 01/21 19:47 Chief complaint: EMS states: "He is from [facility]. They tested him and he was tw5 positive. The patient states that he feels fine expect for a little chest congestion. He is normally on 2L NC.". Risk Assessment: Do you want to hurt yourself or someone else? Patient reports no desire to harm self or others. 19:47 Method Of Arrival: EMS: [facility] tw5 19:47 Acuity: CYRUS 4 tw5 19:47 Coronavirus screen: Vaccine status: Patient reports being unvaccinated. Ebola Screen: ha1 No symptoms or risks identified at this time. Initial Sepsis Screen: Does the patient meet any 2 criteria? Yes Does the patient have a suspected source of infection? No. Patient's initial sepsis screen is negative. 19:47 Onset of symptoms was January 21, 2022. ha1 Triage Assessment: 19:47 General: Appears in no apparent distress. Behavior is calm, cooperative. Respiratory: ha1 Airway is patent Trachea midline Respiratory effort is even, unlabored, Respiratory pattern is regular, symmetrical, Parent/caregiver reports the patient having cough that is non-productive, dry. 01/22 03:38 Respiratory: Breath sounds are clear bilaterally. kd3 Historical: - Allergies: 01/21 19:47 No Known Allergies; ha1 - Home Meds: 01/22 03:38 allopurinol 300 mg Oral tab 1 tab once daily [Active]; baclofen 10 mg Oral tab 1 tab kd3 nightly [Active]; mirtazapine 15 mg Oral tab 1 tab nightly [Active]; Metoprolol Tartrate Oral [Active]; mupirocin Topical [Active]; sildenafil Oral [Active]; - PMHx: 01/21 19:47 CHF; Diabetes - NIDDM; Hypertension; High Cholesterol; ha1 01/22 03:38 Prostate; PULMONARY HYPERTENSION; kd3 - Immunization history:: Adult Immunizations up to date. - Social history:: Smoking status: Patient denies any tobacco usage or history of. Screenin/15 19:47 Abuse screen: Denies threats or abuse. Denies injuries from another. ha1 19:47 Nutritional screening: No deficits noted. Tuberculosis screening: No symptoms or risk ha1 factors identified. Fall Risk. Assessment: 19:47 General: Appears in no apparent distress. Behavior is calm, cooperative. Pain:. ha1 19:47 Neuro: Level of Consciousness is awake, alert, obeys commands, Oriented to person, ha1 place, time, situation. Cardiovascular: Patient's skin is warm and dry. Rhythm is sinus tachycardia. Respiratory: Airway is compromised Trachea midline Respiratory effort is even, unlabored, Respiratory pattern is regular, symmetrical. Respiratory: Reports cough that is non-productive, dry. Respiratory: Reports cough that is non-productive, dry. 20:40 Reassessment: Patient and/or family updated on plan of care and expected duration. Pain ha1 level reassessed. 22:35 Reassessment: Patient and/or family updated on plan of care and expected duration. Pain ha1 level reassessed. Respiratory: Patient placed on BiPAP:. 23:30 Reassessment: Patient appears in no apparent distress at this time. No changes from ha1 previously documented assessment. Patient and/or family updated on plan of care and expected duration. Pain level reassessed. Patient is alert, oriented x 3, equal unlabored respirations, skin warm/dry/pink. 23:30 Respiratory: Patient placed on BiPAP: Respiratory Rate: 19. ha1 01/22 00:52 Reassessment: No changes from previously documented assessment. Patient and/or family ha1 updated on plan of care and expected duration. Pain level reassessed. Patient is alert, oriented x 3, equal unlabored respirations, skin warm/dry/pink. 01:44 Reassessment: Patient and/or family updated on plan of care and expected duration. Pain ha1 level reassessed. Respiratory: Respiratory effort is even, Respiratory pattern is regular, symmetrical, cough has been decreased Patient placed on BiPAP: Respiratory Rate: 20. 02:32 Reassessment: Patient and/or family updated on plan of care and expected duration. Pain ha1 level reassessed. Reassessment: Oxygen \\T\\ 97. Neuro: pt. eyes are closed. Respiratory: Airway is patent Respiratory effort is even, unlabored, Respiratory pattern is regular, symmetrical, Patient placed on BiPAP: Respiratory Rate: 20. Vital Signs: 01/21 19:47 BP 129 / 79; Pulse 107; Resp 20; Temp 99.7(O); Pulse Ox 97% on 2 lpm NC; Weight 86.18 tw5 kg; Height 6 ft. 1 in. (185.42 cm); Pain 0/10; 19:47 BP 144 / 101; Pulse 114; Resp 20; Temp 101.1; Pulse Ox 97% 2 lpm ; Weight 86.18 kg; ha1 23:30 BP 135 / 83; Pulse 111; Resp 19; Pulse Ox 98% on BiPAP; ha1 01/22 00:51 BP 141 / 82; Pulse 109; Resp 22 S; Pulse Ox 96% on 28% BiPAP; ha1 01:30 BP 111 / 66; Pulse 97; Resp 20 S; Pulse Ox 97% on 28% BiPAP; ha1 02:36 BP 121 / 72; Pulse 89; Resp 20; Pulse Ox 97% on 28% BiPAP; ha1 03:37 BP 147 / 93; Pulse 106; Resp 14; Pulse Ox 96% on 3 lpm NC; kd3 01/21 19:47 Body Mass Index 25.07 (86.18 kg, 185.42 cm) tw5 ED Course: 01/21 19:45 Patient arrived in ED. tw5 19:47 Arm band placed on right wrist. ha1 19:48 Mitch Mayfield PA is PHCP. cp 19:48 Nahun Montalvo MD is Attending Physician. cp 19:49 Triage completed. tw5 20:02 Brittany Marinelli, DAGO is Primary Nurse. ha1 20:58 XRAY Chest (1 view) In Process Unspecified. EDMS 22:29 PHCP role handed off by Mitch Mayfield PA kb 22:29 Ximena Lopez FNP-C is PHCP. kb 23:04 Dennis Espinosa MD is Hospitalizing Provider. kb 23:32 Urine Microscopic Only Sent. kd3 01/22 00:11 Vickey Shaffer MD is Hospitalizing Provider. la1 01:00 Inserted saline lock: 20 gauge in right forearm, using aseptic technique. Blood oe collected. 03:38 No provider procedures requiring assistance completed. Patient admitted, IV remains in kd3 place. 03:39 Patient has correct armband on for positive identification. kd3 Administered Medications: 01/21 21:19 Drug: Tessalon Perle (benzonatate) 200 mg Route: PO; ha1 23:00 Follow up: Response: No adverse reaction ha1 22:24 Not Given (Physician Discretion): Cipro (ciprofloxacin) 400 mg 200 ml IVPB once over 60 cp mins 22:32 Drug: Decadron - Dexamethasone 6 mg Route: IVP; Site: left forearm; ha1 23:00 Follow up: Response: No adverse reaction ha1 22:32 Drug: Lasix (furosemide) 20 mg Route: IVP; Site: left forearm; ha1 23:00 Follow up: Response: No adverse reaction ha1 23:05 CANCELLED (Duplicate Order): Tylenol 1000 mg PO once 01/22 00:15 CANCELLED (Other Intervention Used): Ativan (LORazepam) 0.5 mg IVP once la1 00:54 Drug: Ativan (LORazepam) 0.5 mg Route: IVP; Site: right forearm; ha1 01:28 Follow up: Response: No adverse reaction; RASS: Drowsy (-1) ha1 00:55 Drug: Tylenol 650 mg Route: PO; ha1 01:31 Follow up: Response: No adverse reaction ha1 Medication: 03:39 VIS not applicable for this client. kd3 Outcome: 01/21 23:04 Decision to Hospitalize by Provider. 01/22 03:38 Admitted to Med/surg kd3 Condition: stable Discharge instructions given to patient, Instructed on discharge instructions, Demonstrated understanding of instructions, follow-up care. 03:39 Patient left the ED. kd3 Signatures: Dispatcher [employer] EDMS Ximena Lopez, CUSTOMER MANAGEMENT SPECIALIST-C CUSTOMER MANAGEMENT SPECIALIST-Ckb Elio Rosado FNP-C CUSTOMER MANAGEMENT SPECIALIST-Cla1 Mitch Mayfield PA PA cp Espinosa, [place] oe Wood, Tiffany tw5 Candy Brown RN RN 3 Brittany Marinelli RN RN ha1
--- NOTE | 2022-01-21 23:05 | EDPHYS ---
Physician Documentation [facility] Name: George Ryder Age: 66 yrs Sex: Male : 1955 Arrival Date: 01/21/2022 Time: 19:45 Bed 14 Private MD: ED Physician Nahun Montalvo HPI: 01/21 20:20 This 66 yrs old Male presents to ER via EMS with complaints of Congestion. cp 20:20 The patient or guardian reports cough, that is constant, difficulty breathing. cp 20:20 Onset: The symptoms/episode began/occurred 3 day(s) ago. cp 20:20 Associated signs and symptoms: Pertinent positives: fever, Pertinent negatives: chest cp pain, vomiting. Severity of symptoms: in the emergency department the symptoms are unchanged despite home interventions. Historical: - Allergies: 19:47 No Known Allergies; ha1 - Home Meds: 01/22 03:38 allopurinol 300 mg Oral tab 1 tab once daily [Active]; baclofen 10 mg Oral tab 1 tab kd3 nightly [Active]; mirtazapine 15 mg Oral tab 1 tab nightly [Active]; Metoprolol Tartrate Oral [Active]; mupirocin Topical [Active]; sildenafil Oral [Active]; - PMHx: 01/21 19:47 CHF; Diabetes - NIDDM; Hypertension; High Cholesterol; ha1 01/22 03:38 Prostate; PULMONARY HYPERTENSION; kd3 - Immunization history:: Adult Immunizations up to date. - Social history:: Smoking status: Patient denies any tobacco usage or history of. ROS: 01/21 20:25 Constitutional: Positive for body aches, fever, Negative for poor PO intake. cp 20:25 Eyes: Negative for injury, pain, redness, and discharge. cp 20:25 Cardiovascular: Negative for chest pain, edema. 20:25 Respiratory: Positive for cough, "sounds productive", shortness of breath, at rest. 20:25 Abdomen/GI: Negative for abdominal pain, vomiting, diarrhea, constipation. 20:25 Skin: Negative for cellulitis, rash. 01/22 20:25 ENT: Negative for drainage from ear(s), ear pain, sore throat, difficulty swallowing, cp difficulty handling secretions. Neuro: Negative for altered mental status, weakness. 20:25 All other systems are negative. cp Exam: 01/21 20:30 Head/Face: Normocephalic, atraumatic. cp Constitutional: The patient appears in no acute distress, alert, awake, non-diaphoretic, non-toxic, well developed, well nourished. 20:30 Eyes: Periorbital structures: appear normal, Conjunctiva: normal, no exudate, no cp injection, Sclera: no appreciated abnormality, Lids and lashes: appear normal, bilaterally. 20:30 ENT: External ear(s): are unremarkable, Nose: is normal, Mouth: Lips: moist, Oral mucosa: pink and intact, moist, Posterior pharynx: Airway: no evidence of obstruction, patent, erythema, that is mild, exudate, is not appreciated. 20:30 Neck: ROM/movement: is normal, is supple, without pain, no range of motions limitations, no meningismus. 20:30 Chest/axilla: Inspection: normal. 20:30 Cardiovascular: Rate: tachycardic, Rhythm: regular, Edema: is not appreciated, JVD: is not appreciated. 20:30 Respiratory: the patient does not display signs of respiratory distress, Respirations: shallow respirations, that is mild, Breath sounds: bronchial sounds, that are moderate, are heard diffusely, wheezing: is not appreciated. 20:30 Abdomen/GI: Inspection: abdomen appears normal, Palpation: abdomen is soft and non-tender, in all quadrants. 20:30 Skin: cellulitis, is not appreciated, no rash present. 20:30 Neuro: Orientation: to person, place \\T\\ time. Mentation: is normal. 01/22 00:43 ECG was reviewed by the Attending Physician. kb Vital Signs: 01/21 19:47 BP 129 / 79; Pulse 107; Resp 20; Temp 99.7(O); Pulse Ox 97% on 2 lpm NC; Weight 86.18 tw5 kg; Height 6 ft. 1 in. (185.42 cm); Pain 0/10; 19:47 BP 144 / 101; Pulse 114; Resp 20; Temp 101.1; Pulse Ox 97% 2 lpm ; Weight 86.18 kg; ha1 23:30 BP 135 / 83; Pulse 111; Resp 19; Pulse Ox 98% on BiPAP; ha1 01/22 00:51 BP 141 / 82; Pulse 109; Resp 22 S; Pulse Ox 96% on 28% BiPAP; ha1 01:30 BP 111 / 66; Pulse 97; Resp 20 S; Pulse Ox 97% on 28% BiPAP; ha1 02:36 BP 121 / 72; Pulse 89; Resp 20; Pulse Ox 97% on 28% BiPAP; ha1 03:37 BP 147 / 93; Pulse 106; Resp 14; Pulse Ox 96% on 3 lpm NC; kd3 01/21 19:47 Body Mass Index 25.07 (86.18 kg, 185.42 cm) tw5 MDM: 01/21 20:02 Patient medically screened. cp 21:00 Differential diagnosis: bronchitis, flu, pneumonia, CHF, chronic obstructive pulmonary cp disease exacerbation, respiratory failure. 23:03 Data reviewed: vital signs, nurses notes. Counseling: I had a detailed discussion with kb the patient and/or guardian regarding: the historical points, exam findings, and any diagnostic results supporting the discharge/admit diagnosis, lab results, radiology results, the need for further work-up and treatment in the hospital. 01/21 20:17 Order name: Basic Metabolic Panel; Complete Time: 22:58 cp 01/21 20:17 Order name: CBC with Diff; Complete Time: 22:36 cp 01/21 20:17 Order name: LFT's; Complete Time: 22:58 cp 01/21 20:17 Order name: Magnesium; Complete Time: 22:58 cp 01/21 20:17 Order name: NT PRO-BNP; Complete Time: 22:58 cp 01/21 20:17 Order name: PT-INR; Complete Time: 22:41 cp 01/21 20:17 Order name: Troponin HS; Complete Time: 22:58 cp 01/21 20:17 Order name: Influenza Screen (a \\T\\ B); Complete Time: 22:27 cp 01/21 20:17 Order name: COVID-19 SARS RT PCR (Document "Date of Onset" if Symptomatic); Complete cp Time: 22:27 01/21 21:05 Order name: Urine Microscopic Only; Complete Time: 00:12 cp 01/21 21:05 Order name: Lactate; Complete Time: 22:52 cp 01/21 21:05 Order name: Procalcitonin; Complete Time: 23:25 cp 01/21 21:05 Order name: Blood Culture Adult (2) cp 01/21 21:05 Order name: CRP; Complete Time: 22:52 cp 01/21 20:17 Order name: XRAY Chest (1 view); Complete Time: 21:24 cp 01/21 21:25 Interpretation: Report review. cp 01/21 20:17 Order name: EKG; Complete Time: 20:18 cp 01/21 20:17 Order name: Cardiac monitoring; Complete Time: 22:33 cp 01/21 21:05 Order name: Ferritin; Complete Time: 22:52 cp 01/21 21:42 Order name: ABG; Complete Time: 00:12 cp 01/21 23:31 Order name: Urine Dipstick-Ancillary; Complete Time: 23:31 EDMS 01/21 23:48 Order name: Urine Culture EDNE 01/22 00:48 Order name: CT Chest For PE Angio kb 01/21 20:17 Order name: EKG - Nurse/Tech; Complete Time: 22:33 cp 01/21 20:17 Order name: IV Saline Lock; Complete Time: 22:33 cp 01/21 20:17 Order name: Labs collected and sent; Complete Time: 22:33 cp 01/21 20:17 Order name: O2 Per Protocol; Complete Time: 22:33 cp 01/21 20:17 Order name: O2 Sat Monitoring; Complete Time: 22:33 cp 01/21 21:05 Order name: Urine Dipstick-Ancillary (obtain specimen); Complete Time: 23:32 cp EC/16 00:43 Rate is 109 beats/min. Rhythm is regular. QRS [place] is Normal. [place] interval is normal at kb 168 msec. QRS interval is normal at 78 msec. QT interval is normal at 428 msec. Administered Medications: 01/21 21:19 Drug: Tessalon Perle (benzonatate) 200 mg Route: PO; ha1 23:00 Follow up: Response: No adverse reaction ha1 22:24 Not Given (Physician Discretion): Cipro (ciprofloxacin) 400 mg 200 ml IVPB once over 60 cp mins 22:32 Drug: Decadron - Dexamethasone 6 mg Route: IVP; Site: left forearm; ha1 23:00 Follow up: Response: No adverse reaction ha1 22:32 Drug: Lasix (furosemide) 20 mg Route: IVP; Site: left forearm; ha1 23:00 Follow up: Response: No adverse reaction ha1 23:05 CANCELLED (Duplicate Order): Tylenol 1000 mg PO once kb 01/22 00:15 CANCELLED (Other Intervention Used): Ativan (LORazepam) 0.5 mg IVP once la1 00:54 Drug: Ativan (LORazepam) 0.5 mg Route: IVP; Site: right forearm; ha1 01:28 Follow up: Response: No adverse reaction; RASS: Drowsy (-1) ha1 00:55 Drug: Tylenol 650 mg Route: PO; ha1 01:31 Follow up: Response: No adverse reaction ha1 Disposition: 04:49 Co-signature as Attending Physician, Nahun Montalvo MD I agree with the assessment and rn plan of care. Attestation: The patient's history, exam findings, diagnostics, and a summary of any interventions or procedures was reviewed in detail with Mitch MARY. Disposition Summary: 01/21/22 23:04 Hospitalization Ordered Hospitalization Status: Inpatient Admission kb [facility] kb Condition: Fair kb Problem: new kb Symptoms: are unchanged kb Bed/Room Type: Standard kb Provider: Vickey Shaffer(01/22/22 00:11) la1 Room Assignment: 417(01/22/22 02:59) Diagnosis - SARS-associated coronavirus as the cause of diseases classified elsewhere kb - Hypoxia kb Forms: - Medication Reconciliation Form kb - SBAR form kb Signatures: Dispatcher [employer] EDMS Ximena Lopez, EDDIE-C EDDIE-Nahun Massey MD MD rn Attema, Lee, FNP-C [facility] Celeste PA PA cp Garcia, Cindy RN RN Candy Gallagher RN RN kd3 Brittany Marinelli RN RN ha1 Corrections: (The following items were deleted from the chart) 01/21 23:05 23:04 Tylenol 1000 mg PO once ordered. kb kb 01/22 00:11 01/21 23:04 Dennis Espinosa kb la1 01/22 00:15 00:15 Ativan (LORazepam) 0.5 mg IVP once ordered. la1 la1 02:59 01/21 23:04 ama
[2022-01-21 23:30] LABS: Urine Blood 3+ (Negative); Urine Glucose Negative (Negative); Urine Protein Negative (Negative); Urine pH 7.5 (5.0-7.0)
[2022-01-21 23:44] LABS: Urine Bacteria <20 /HPF (<20); Urine Mucus Slight /HPF (None Seen); Urine RBC 21-50 /HPF (None Seen)
[2022-01-21] MEDS ORDERED: ACETAMINOPHEN 325 MG TABLET ONE (23:55)
--- NOTE | 2022-01-22 00:29 | P.HP ---
Certification for Inpatient Patient admitted to: Inpatient With expected LOS: >2 Midnights Patient will require the following post-hospital care: None Practitioner: I am a practitioner with admitting privileges, knowledge of patient current condition, hospital course, and medical plan of care. Services: Services provided to patient in accordance with Admission requirements found in Title 42 Section 412.3 of the Code of Federal Regulations Patient History Date of Service: 01/22/22 Reason for admission: Respiratory failure/COVID-pneumonia History of Present Illness: 66-year-old male with history of pulmonary hypertension, diastolic chronic congestive heart failure, CAD, diabetes mellitus type 2, chronic respiratory failure on home O2 with an IV presented to the emergency department for shortness of breath. He was recently diagnosed with COVID-19 at his assisted living facility. He was evaluated in the emergency department he was found to be febrile, tachycardic, tachypneic and ABG was performed which revealed a pH of 7.34 PCO2 of 70.5 PO2 of 108 HCO3 36.5 white blood cell count was normal high- sensitivity troponin 71.2 BNP 2225 glucose 213 urinalysis with 3+ leuk esterase negative nitrite on microscopic exam no bacteria were present. No signs of bacterial infection at this time patient mildly altered currently requiring BiPAP his chest x-ray also showed mild bilateral interstitial prominence greater on the right likely related to viral infection heart is mildly enlarged no displaced fractures. ED provider wishes to admit for further evaluation and management of acute on chronic hypoxic/hypercapnic respiratory failure secondary to COVID-19 pneumonia/CHF with exacerbation. Allergies No Known Allergies Allergy (Verified 08/03/18 10:49) Home Medications: Allopurinol 300 mg PO DAILY 10/19/21 Baclofen [Lioresal*] 10 mg PO DAILY 10/19/21 Mirtazapine [Remeron*] 15 mg PO BEDTIME 10/19/21 Mupirocin Calcium [Bactroban] 1 appl TP BID 10/19/21 Sildenafil Citrate 20 mg PO Q12H 10/19/21 Arformoterol Tartrate [Brovana] 15 mcg NEB BIDRESP #60 vial.neb 10/21/21 Metoprolol Tartrate [Lopressor*] 25 mg PO BID 6AM 6PM #60 tab 10/21/21 Spironolactone [Aldactone*] 25 mg PO BID #60 tab 10/21/21 Albuterol Neb [Proventil 0.083% Neb Soln] 2.5 mg NEB [id number] PRN #60 amp acetaZOLAMIDE [Diamox*] 250 mg PO DAILY #30 tab 12/16/21 dexAMETHasone [Dexamethasone] 2 mg PO BID #11 12/16/21 predniSONE [Prednisone*] 10 mg PO DAILY #30 tab 12/16/21 - Past Medical/Surgical History Diabetic: Yes -: HTN -: DM -: Hyperlipidemia -: Pulmonary hypertension -: Diastolic CHF -: cataract sx -: appendectomy Psychosocial/ Personal History: Patient lives at an assisted living facility. - Family History Father -: Heart disease, Hypertension, Diabetes - Social History Smoking Status: Never smoker Alcohol use: No CD- Drugs: No Caffeine use: No Place of Residence: Home Review of Systems 10-point ROS is otherwise unremarkable General: Fever, Chills, Weakness, Malaise Respiratory: Cough, Shortness of Breath Physical Examination - Physical Exam General: Alert, In no apparent distress, Oriented x3 HEENT: Atraumatic, PERRLA, Mucous membr. moist/pink, EOMI, Sclerae nonicteric Neck: Supple, 2+ carotid pulse no bruit, No LAD, Without JVD or thyroid abnor mality Respiratory: Diminished, Crackles/rales, Rhonchi/gurgles Cardiovascular: Regular rate/rhythm, Normal S1 S2, Edema Capillary refill: <2 Seconds Gastrointestinal: Normal bowel sounds, No tenderness Musculoskeletal: No tenderness Integumentary: No rashes Neurological: Normal speech, Normal strength at 5/5 x4 extr, Normal tone, Normal affect - Studies Laboratory Data (last 24 hrs) 01/21/22 22:15: PT 11.2, INR 1.02 01/21/22 22:15: WBC 8.40, Hgb 14.2, Hct 44.5, Plt Count 184 01/21/22 22:15: Sodium 141, Potassium 4.3, BUN 21 H, Creatinine 0.78, Glucose 213 H, Magnesium 2.0, Total Bilirubin 0.4, AST 11 L, ALT 23, Alkaline Phosphatase 104 Microbiology Data (last 24 hrs): 01/21/22 21:23 Nasopharnyx Influenza Type A Antigen Screen - Final 01/21/22 21:23 Nasopharnyx Influenza Type B Antigen Screen - Final Assessment and Plan - Plan Assessment: Acute on chronic hypoxic/hypercapnic respiratory failure COVID-19 pneumonia Acute on chronic diastolic congestive heart failure Diabetes mellitus type 2 with hyperglycemia Pulmonary hypertension Hypertension Plan: Acute on chronic hypoxic/hypercapnic respiratory failure: Continue BiPAP support at this time patient on chronic home O2 possibly has an IV at home although patient cannot confirm this. Breathing likely worse secondary to COVID-19 pneumonia in commendation with his acute on chronic diastolic congestive heart failure. Continue home medications including his Diamox, sildenafil for pulmonary hypertension. Pulmonology to assist with management patient, cardiology also consulted. COVID-19 pneumonia: Patient is hypoxic continue with Decadron 6 mg p.o. daily, pulmonology consulted, continue ICS. Supplemental oxygen as needed. We will repeat ABG in the morning. Acute on chronic diastolic congestive heart failure: Continue as above, echocardiogram ordered, cardiology consult in place. Diabetes mellitus type 2 with hyperglycemia: Sliding scale insulin Pulmonary hypertension: Home medications continued Hypertension: Home medications continued DVT PPX: Lovenox Code status: Full Discharge Plan: Home Plan to discharge in: 72 Hours - Advance Directives Does patient have a Living Will: No Does patient have a Durable POA for Healthcare: No - Code Status/Comfort Care Code Status Assessed: Yes (Full code) Critical Care: No Time Spent Managing Pts Care (In Minutes): 70
[2022-01-22] MEDS ORDERED: LORazepam 2 MG/ML VIAL ONE (00:33)
[2022-01-22] MEDS ORDERED: GLUCAGON 1 MG/VIAL IM PRN (03:32)
[2022-01-22] MEDS ORDERED: ONDANSETRON 4 MG/2 ML VIAL IV PRN (03:32)
[2022-01-22] MEDS ORDERED: D50W 25 GM/50 ML SYRINGE IV PRN (03:32)
[2022-01-22] MEDS ORDERED: D10W 125 ML IV PRN (03:47)
[2022-01-22 04:35] VITALS: BMI 27.3
[2022-01-22] MEDS: METOPROLOL TAR 25 MG TAB PO SCH ×2 (05:26→17:14)
[2022-01-22 05:40] LABS: Arterial Blood Carboxyhemoglob 1.6 % (0-1.5); Blood Gas Oxyhemoglobin 92.9 % (94-97); Blood O2 Saturation 95.7 % (92-98.5)
[2022-01-22 06:15] LABS: Absolute Lymphocytes (CBC) 0.3 K/uL (0.7-4.9); Hematocrit 43.8 % (39.6-49.0); Lymphocytes % 3.6 % (15.3-44.8); MCV 95.3 fL (80-100); MPV 7.7 fL (7.6-11.3)
[2022-01-22 06:33] LABS: Albumin 3.1 g/dL (3.4-5.0); Bilirubin Total 0.6 mg/dL (0.2-1.0); Potassium 4.7 mmol/L (3.5-5.1); Protein, Total 6.8 g/dL (6.4-8.2)
[2022-01-22 06:47] LABS: Troponin High Sensitivity 70.3 pg/mL (<58.9)
[2022-01-22 07:07] LABS: Blood Morphology Comment NOT SEEN (NOT SEEN); Platelet Estimate ADEQ; White Blood Cell Scan OK (OK)
[2022-01-22] MEDS: INSULIN -REGULAR HUMAN 50 UNIT/0.5 ML ML SQ SCH ×4 (07:30→21:00)
[2022-01-22] MEDS: dexAMETHasone 4 MG TAB PO SCH ×2 (09:00→09:28)
[2022-01-22] MEDS: DULERA 200/5 (MOMETASONE/FORMOTEROL) INHALER IH SCH ×2 (09:00→09:28)
[2022-01-22] MEDS: allopurinoL 300 MG TAB PO SCH ×2 (09:00→09:27)
[2022-01-22] MEDS: SPIRONOLACTONE 25 MG TABLET PO SCH ×3 (09:00→21:45)
[2022-01-22] MEDS: SILDENAFIL CITRATE 20 MG TABLET PO SCH ×3 (09:00→21:45)
[2022-01-22] MEDS ORDERED: ENOXAPARIN 40 MG/0.4 ML SQ SCH (09:00)
[2022-01-22] MEDS: acetaZOLAMIDE 250 MG TAB PO SCH ×2 (09:00→09:27)
[2022-01-22] MEDS: ARFORMOTEROL TARTRATE 15 MCG/2 ML VIAL.NEB NEB SCH ×2 (09:40→20:50)
--- NOTE | 2022-01-22 11:14 | RAD REPORT ---
EXAM DESCRIPTION: CT - Chest For Pe Angio - 01/22/2022 3:17 am CLINICAL HISTORY: 66 years, Male, dyspnea, COMPARISON: 10/18/2021 TECHNIQUE: Multiple transaxial tomograms of the chest were obtained from the lung apices through the lung bases utilizing 2 mm slice thickness at 2 mm interval reconstruction after the administration o f large bolus of IV contrast for complete opacification of the pulmonary arteries. Subsequent 3-D maximum intensity projection images were generated in the coronal and sagittal plane f or review. This exam was performed according to our departmental dose-optimization protocol, which includes auto mated exposure control, adjustment of the mA and/or kV according to patient size and/or use of iterat wade reconstruction technique. FINDINGS: The lungs parenchyma demonstrate slight decreased lung volume. Compressive atelectatic adeline nges. Bilateral diaphragmatic elevation. Increased instertitial pulmonary markings could suggest the possibility of interstitial pulmonary edema. No significant masses, nodules and/or consolidations are identified. The trachea mainstem bronchus demonstrate to be normal. There is no significant pericardial or pleura l effusions. The thoracic aorta demonstrate intimal aortic arch calcification. There is prominence of the ascendin g thoracic aorta measuring 4.1 cm on image 114. There is no evidence for dissection. The heart is is increased in size. No evidence for right ventricular strain. There are coronary artery calcifications . There is no significant mediastinal and/or hilar lymphadenopathy. The axillary regions demonstrate to be clear. Pulmonary arteries demonstrate to be normal, no intraluminal defect are seen that would suggest pulmo nary embolus. The bone windows demonstrate demonstrate minimal spondylosis throughout lumbar spine. The visualized portions of the upper abdomen demonstrate probable status post cholecystectomy. IMPRESSION: No CT evidence for pulmonary embolism. Slight decreased lung volume with bibasilar atelectasis. Increased interstitial pulmonary markings could suggest the possibility of interstitial pulmonary kelsie ma/or related to decreased lung volume. Cardiomegaly with coronary artery calcifications. Mild aneurysmal dilatation of the ascending thoracic aorta measuring 4.1 cm. Electronically signed by: Randy Colon MD 01/22/2022 4:00 AM CDT Due to temporary technical issues with the PACS/Fluency reporting system, reports are being signed by the in house radiologists without review as a courtesy to insure prompt reporting. The interpreting radiologist is fully responsible for the content of the report.
--- NOTE | 2022-01-22 12:30 | EKG ---
Test Date: 2022-01-21 Test Time: 22:35:21 Foundry Operator: GAMAL MEASUREMENT RESULTS: Intervals: Rate: 109 VA: 168 QRSD: 78 QT: 318 QTc: 428 [place]: P: 23 VA: 168 QRS: 80 T: -30 INTERPRETIVE STATEMENTS: Sinus tachycardia Inferior infarct, age undetermined ST & T wave abnormality, consider anterolateral ischemia Abnormal ECG Compared to ECG 12/13/2021 19:38:37 ST (T wave) deviation now present Sinus rhythm no longer present T-wave abnormality no longer present Myocardial infarct finding still present Possible ischemia still present Electronically Signed On 01-22-22 12:28:06 CDT by Koko Prasad
--- NOTE | 2022-01-22 12:49 | ECHO ---
HEIGHT: 6 ft 1 in WEIGHT: 207 lb 8 oz DATE OF STUDY: 01/22/[address]: Elio Rosado NP 2-DIMENSIONAL: YES M.MODE: YES DOPPLER: YES COLOR FLOW: YES TDS: YES PORTABLE: YES DEFINITY: BUBBLE STUDY: DIAGNOSIS: CONGESTIVE HEART FAILURE CARDIAC HISTORY: CATHERIZATION: SURGERY: PROSTHETIC VALVE: PACEMAKER: MEASUREMENTS (cm) DIASTOLIC (NORMALS) SYSTOLIC (NORMALS) IVSd 1.4 (0.6-1.2) LA Diam 30. (1.9-4.0) LVEF 59% LVIDd 3.9 (3.5-5.7) LVIDs 2.7 (2.0-3.5) %FS 31% LVPWd 1.2 (0.6-1.2) Ao Diam 3.2 (2.0-3.7) 2 DIMENSIONAL ASSESSMENT: RIGHT ATRIUM: NORMAL LEFT ATRIUM: NORMAL RIGHT VENTRICLE: NORMAL LEFT VENTRICLE: NORMAL TRICUSPID VALVE: NORMAL MITRAL VALVE: NORMAL PULMONIC VALVE: NORMAL AORTIC VALVE: NORMAL PERICARDIAL EFFUSION: NONE AORTIC ROOT: NORMAL LEFT VENTRICULAR WALL MOTION: NORMAL DOPPLER/COLOR FLOW: MILD TRICUSPID REGURGITATION. MILD PULMONARY HYPERTENSION. COMMENTS: MODERATE PULMONARY HYPERTENSION. IMPROVED SINCE 10/2021. NORMAL EJECTION FRACTION. NO EFFUSION. TECHNOLOGIST: ANDER ABAD
[2022-01-22] MEDS: dexAMETHasone 4 MG/ML VIAL IV SCH (16:24)
[2022-01-22] MEDS ORDERED: MIRTAZAPINE 15 MG TAB PO SCH (21:00)
[2022-01-22] MEDS ORDERED: BACLOFEN 10 MG TAB PO SCH (21:00)
[2022-01-22] MEDS: APIXABAN 5 MG TABLET PO SCH (21:45)
[2022-01-23] MEDS: dexAMETHasone 4 MG/ML VIAL IV SCH ×2 (00:55→08:55)
[2022-01-23] MEDS: METOPROLOL TAR 25 MG TAB PO SCH (05:33)
[2022-01-23 06:34] LABS: Absolute Lymphocytes (CBC) 0.4 K/uL (0.7-4.9); Lymphocytes % 5.4 % (15.3-44.8); MCV 96.5 fL (80-100); MPV 7.6 fL (7.6-11.3); RBC Red Blood Cell Count 4.45 M/uL (4.33-5.43)
[2022-01-23 06:51] LABS: Bilirubin Total 0.6 mg/dL (0.2-1.0); Potassium 4.9 mmol/L (3.5-5.1); Protein, Total 6.6 g/dL (6.4-8.2)
[2022-01-23] MEDS: INSULIN -REGULAR HUMAN 50 UNIT/0.5 ML ML SQ SCH (07:30)
[2022-01-23] MEDS: acetaZOLAMIDE 250 MG TAB PO SCH (08:54)
[2022-01-23] MEDS: APIXABAN 5 MG TABLET PO SCH (08:55)
[2022-01-23] MEDS: allopurinoL 300 MG TAB PO SCH (08:55)
[2022-01-23] MEDS: SPIRONOLACTONE 25 MG TABLET PO SCH (08:55)
[2022-01-23] MEDS: SILDENAFIL CITRATE 20 MG TABLET PO SCH (08:55)
--- NOTE | 2022-01-23 09:00 | P.PN ---
Subjective Date of Service: 01/23/22 Chief Complaint: Respiratory failure/COVID-pneumonia Subjective: Improving (Patient is doing well no new complaints back to his baseline denies any shortness of breath) Review of Systems Unremarkable General: Weakness Physical Examination - Vital Signs Temperature: 97.1 F Blood Pressure: 124/75 Pulse: 65 Respirations: 18 Pulse Ox (%): 93 - Physical Exam General: Alert, In no apparent distress, Oriented x3 Respiratory: Clear to auscultation bilaterally Cardiovascular: Regular rate/rhythm, Normal S1 S2, Edema Assessment And Plan - Current Problems (Diagnosis) (1) Hypercapnic respiratory failure Current Visit: No Status: Acute Plan: Patient has a history of hypercapnic respiratory failure was denied noninvasive ventilator turned out to be COVID-positive no evidence of COVID-pneumonia he also has pulmonary hypertension atrial fibrillation diastolic heart failure labs all reviewed will DC Dex Methasone possible discharge back to the long-term patient has oxygen at home does not ambulate Qualifiers: Chronicity: acute on chronic Qualified Code(s): J96.22 - Acute and chronic respiratory failure with hypercapnia
[2022-01-23] MEDS: ARFORMOTEROL TARTRATE 15 MCG/2 ML VIAL.NEB NEB SCH (09:22)
--- NOTE | 2022-01-23 10:31 | P.DS ---
Admission Date: 01/22/22 Discharge Date: 01/23/22 Disposition: ROUTINE DISCHARGE Discharge Condition: FAIR Reason for Admission: Respiratory failure/COVID-pneumonia - Problems (1) Hypercapnic respiratory failure Current Visit: No Status: Acute Qualifiers: Chronicity: acute on chronic Qualified Code(s): J96.22 - Acute and chronic respiratory failure with hypercapnia Brief History of Present Illness: Patient is 66 years of age admitted with acute on chronic respiratory failure COVID-positive Hospital Course: He was admitted and did well there is no evidence of COVID-pneumonia he has chronic hypoxic hypercapnic respiratory failure with A. fib pulmonary hypertens ion sinew with present treatment no change in treatment he did well at the time of discharge he was alert oriented responsive cooperative see progress note [facility] even though he is COVID-positive is given just a short course of steroids will discharge home on some pAXLOVID Vital Signs/Physical Exam: Temp Pulse Resp BP Pulse Ox 97.1 F 65 18 124/75 93 01/23/22 09:00 01/23/22 09:00 01/23/22 09:00 01/23/22 09:00 01/23/22 09:00 Laboratory Data at Discharge: WBC 7.50 K/uL (4.3-10.9) 01/23/22 06:17 Hgb 13.7 g/dL (13.6-17.9) 01/23/22 06:17 Hct 43.0 % (39.6-49.0) 01/23/22 06:17 Plt Count 172 K/uL (152-406) 01/23/22 06:17 PT 11.2 SECONDS (9.5-12.5) 01/21/22 22:15 INR 1.02 01/21/22 22:15 Sodium 135 mmol/L (136-145) L 01/23/22 06:17 Potassium 4.9 mmol/L (3.5-5.1) 01/23/22 06:17 BUN 28 mg/dL (7-18) H 01/23/22 06:17 Creatinine 0.83 mg/dL (0.55-1.3) 01/23/22 06:17 Glucose 213 mg/dL (74-106) H 01/23/22 06:17 Magnesium 2.0 mg/dL (1.8-2.4) 01/21/22 22:15 Total Bilirubin 0.6 mg/dL (0.2-1.0) 01/23/22 06:17 AST 11 U/L (15-37) L 01/23/22 06:17 ALT 20 U/L (12-78) 01/23/22 06:17 Alkaline Phosphatase 74 U/L (45-117) D 01/23/22 06:17 Home Medications: Allopurinol 300 mg PO DAILY 10/19/21 Baclofen [Lioresal*] 10 mg PO BEDTIME 10/19/21 Mirtazapine [Remeron*] 15 mg PO BEDTIME 10/19/21 Mupirocin Calcium [Bactroban] 1 appl TP BID 10/19/21 Sildenafil Citrate 20 mg PO Q12H 10/19/21 Spironolactone [Aldactone*] 25 mg PO BID #60 tab 10/21/21 acetaZOLAMIDE [Diamox*] 250 mg PO DAILY #30 tab 12/16/21 Albuterol Sulfate [Albuterol Sulfate 0.083% Neb Soln] 2.5 mg IH Q6H 01/22/22 Metoprolol Tartrate [Lopressor*] 0.5 tab PO BID 01/22/22 Mometasone/Formoterol [Dulera 200 Mcg-5 Mcg Inhaler] 2 puff IH BID 01/22/22 predniSONE [Prednisone*] 10 mg PO DAILY 01/22/22 Followup: NONE,NONE [Primary Care Provider] -
[2022-01-23 12:54] VITALS: TEMP 99.7
[2022-01-23 13:08] VITALS: BP 147/93; O2SAT 96
--- NOTE | 2022-01-24 19:15 | CON ---
Date of Consultation: 01/22/2022 Reason For Consultation: Respiratory failure, elevated troponin. History Of Present Illness: Mr. Ryder is 66, has had multiple admission for the same reason. He has known severe pulmonary hypertension, diabetes, hypertension, dyslipidemia, COPD, and chronic diastoli c congestive heart failure. Comes in with his respiratory failure, COVID positive, elevated troponin , BNP is 2225. Presently, he is on BiPAP on 99%. He is on home oxygen. Denied any chest pain, naus ea, vomiting, diaphoresis, fever or chills, palpitations, or syncope. His main complaint is shortnes s of breath. Denied pedal edema. Past Medical History: As stated above. Allergies: NONE. Review of Systems: Negative. Social History: Negative. Family History: Noncontributory. Medications: At home include sildenafil, metoprolol, Diamox, Aldactone, steroid, allopurinol, inhale rs. Physical Examination: General: He appeared to be in no acute distress. On BiPAP his saturation was 99%. He was having an echocardiogram when I saw him. HEENT: Negative. Neck: Supple with no bruit. Chest: Clear. Cardiac: Revealed regular rhythm and rate with a tricuspid regurgitation, murmur, and S4 gallops and no rubs. Abdomen: Obese. Extremities: Revealed chronic venous changes and chronic edema to the knees. Diagnostic Data: As stated earlier. Chest x-ray showed possible bilateral pneumonia. Echocardiogra m in October of 2021 showed pulmonary hypertension with 51 mm of right ventricular systolic pressure and a normal ejection fraction. His troponin is slightly elevated. BNP is 2225. Impression And Plan: 1.Acute on chronic diastolic congestive heart failure and pulmonary hypertension exacerbation. 2.COPD. 3.Diabetes. 4.Hypertension. 5.Dyslipidemia. 6.COVID positive. 7.Elevated BNP and troponin secondary to demand ischemia from hypoxia, pulmonary hypertension, and c hronic diastolic congestive heart failure. The patient is not a candidate for coronary intervention. He has what appeared to be viral COVID pneumonia. Continue supportive care for now. I will get an other echocardiogram and we will see if this showed any new changes. No plan for any cardiac interve ntion otherwise. DOMENIC/GEM Voice ID: [id number] Report ID: [id number]
--- NOTE | 2022-01-24 19:19 | PN ---
Date of Progress Note: 01/23/2022 Subjective: He was admitted to Dr. Shaffer for respiratory failure. We were consulted for elevated troponin on 01/23/2022. Objective: His vital signs were stable. He was afebrile. He has adequate O2 saturation. His blood pressure is 147/93, sinus rhythm. O2 saturation 96% on nasal cannula. Echocardiogram which was done showed normal ejection fraction, diastolic dysfunction, improvement in his pulmonary artery pressure. Last PO2 was 83 with a pCO2 of 73.8, creatinine of 0.84. I discussed the case with Dr. Shaffer and I think considering his pulmonary hypertension and COPD an d diastolic dysfunction, it may be reasonable to switch him from metoprolol to a calcium channel bloc ker either Cardizem or Norvasc. Otherwise, continue his present regimen. No further cardiac workup recommended at this point. We will sign off his case for now. I will be happy to see him in the off ice in the near future. DOMENIC/GEM Voice ID: [id number] Report ID: [id number]
== END 2022-01-23 12:51 | disposition home or self-care (01) | DRG 177 ==
LOC: ER 19:23 → ERHOLD 01-22 00:11 → 4TH 01-22 03:21
PROVIDERS: ADMIT Internal Medicine Sleep Medicine; ATTEND Internal Medicine Sleep Medicine
PROC: 5A09357 Assistance with Respiratory Ventilation, Less than 24 Consecutive Hours, Continuous Positive Airway Pressure (ICD-10-PCS; principal; 2022-01-22)
DX: U07.1 COVID-19 (principal); J96.21 Acute and chronic respiratory failure with hypoxia; J96.22 Acute and chronic respiratory failure with hypercapnia; I50.33 Acute on chronic diastolic (congestive) heart failure; I24.8 Other forms of acute ischemic heart disease; I11.0 Hypertensive heart disease with heart failure; E11.65 Type 2 diabetes mellitus with hyperglycemia; I27.20 Pulmonary hypertension, unspecified; J44.9 Chronic obstructive pulmonary disease, unspecified; E78.5 Hyperlipidemia, unspecified; I25.10 Atherosclerotic heart disease of native coronary artery without angina pectoris; Z99.81 Dependence on supplemental oxygen; Z79.52 Long term (current) use of systemic steroids; Z90.49 Acquired absence of other specified parts of digestive tract; Z79.899 Other long term (current) drug therapy
CPT/HCPCS: 36415; 71045; 71275; 80048; 80053; 80076; 81003; 81015; 82728; 82805; 82947; 83605; 83735; 83880; 84145; 84484; 85025; 85610; 86140; 87040; 87077; 87086; 87088; 87186; 87804; 93005; 93306; 94640; 94660; 94760; 99285; J0744; J1100; J1650; J1940; J3535; J7605; J8540; Q9967; U0003

== ENCOUNTER 2022-11-19 13:23 | Inpatient (IN) | payer OTHER ==
[2022-11-19 14:09] LABS: Arterial Blood Carboxyhemoglob 1.5 % (0-1.5); Blood O2 Saturation 92.8 % (92-98.5)
[2022-11-19] MEDS ORDERED: NA CHLORIDE 0.9% 1,000 ML ONE ×2 (14:27→18:02)
[2022-11-19] MEDS ORDERED: NA CHLORIDE 0.9% 500 ML ONE (14:27)
[2022-11-19] MEDS ORDERED: CEFTRIAXONE 1000 MG/VIAL ONE (14:27)
--- NOTE | 2022-11-19 14:49 | RAD REPORT ---
EXAM DESCRIPTION: CT - Head C Spine Cap Wo Con - 11/19/2022 2:32 pm CLINICAL HISTORY: MENTAL STATUS CHANGE COMPARISON: No comparisons TECHNIQUE: CT head without contrast. CT cervical spine without contrast with coronal and sagittal reformatted images. CT chest, abdomen and pelvis with coronal and sagittal reformatted images of the spine. All CT scans are performed using dose optimization technique as appropriate and may include automated exposure control or mA/KV adjustment according to patient size. FINDINGS: CT HEAD WITHOUT CONTRAST: No intracranial hemorrhage, hydrocephalus or extra-axial fluid collection. No acute large vascular te rritory infarct. The paranasal sinuses and mastoids are clear. The calvarium is intact. CT CERVICAL SPINE WITHOUT CONTRAST: No fracture or subluxation. The prevertebral soft tissues are normal in thickness.Bridging osteophytes in the cervical spine. [place] roximately 4 millimeters anterolisthesis of C4 on C5 noted. Varying degrees of neural foraminal narro wing noted. CT CHEST, ABDOMEN, PELVIS: Thorax: Chest Wall: No abnormal mass Lungs: Atelectasis the right lung base. Lingular and left lower lobe consolidation. Pleura: Moderate left and trace right pleural effusion. Aurelia/Mediastinum: No lymphadenopathy. Aorta/Pulmonary Arteries: Unremarkable Heart: Mild cardiomegaly. Small pericardial effusion. Abdomen/Pelvis: Liver: No acute abnormality or suspicious lesions. Biliary: Cholelithiasis Stomach: No significant focal abnormality. Duodenum: No significant focal abnormality. Pancreas: No significant abnormality. Spleen: No significant abnormality. Adrenal: No suspicious lesions. Kidney/ureter: No hydronephrosis. Multiple low-density renal lesions that are likely cysts. Bilateral renal calculi. 14 mm stone in left renal pelvis. No ureteral calculi. Retroperitoneum: No retroperitoneal adenopathy. Vascular: No aneurysm. Bowel: Large colonic stool burden.. Peritoneum: No ascites or free air. Bladder: The bladder is decompressed via Soto catheter. Reproductive: No adnexal masses. Bones: No acute fracture. Bridging osteophytes are present throughout the thoracic and lumbar spine. Diffuse disc height loss and advanced multilevel degenerate disc disease. Other: n/a IMPRESSION: 1. Head CT: No acute intracranial abnormality. 2. Cervical spine CT: No acute fracture or traumatic malalignment of the cervical spine. 3. Chest CT: Moderate left and trace right pleural effusion. Left lower lobe and lingular consolidati on concerning for pneumonia though there is likely some component of atelectasis as well. 4. CT abdomen/pelvis: No acute intra-abdominal abnormality. Moderate rectal stool burden could indica te fecal impaction. Other incidental findings as noted above.
[2022-11-19] MEDS ORDERED: IPRATROPIUM BROM 0.5MG/2.5ML ONE (14:50)
[2022-11-19] MEDS ORDERED: LEVALBUTEROL 1.25 MG/3 ML NEB ONE (14:50)
[2022-11-19 15:10] LABS: Urine Bacteria <20 /HPF (<20); Urine Bilirubin NEGATIVE (Negative); Urine Blood 3+ (OVER) (Negative); Urine Clarity Extremely Turbid (Clear); Urine Color Yellow (Yellow); Urine Glucose NEGATIVE (Negative); Urine Mucus Slight /HPF (None Seen); Urine Protein TRACE (Negative); Urine RBC >50 /HPF (None Seen); Urine Urobilinogen 1+ (Normal)
[2022-11-19 15:14] LABS: Bilirubin Direct 0.2 mg/dL (0-0.2); Bilirubin Indirect, Calculated 0.3 mg/dL (0.2-0.8); Bilirubin Total 0.5 mg/dL (0.2-1.0); Magnesium 2.7 mg/dL (1.6-2.4); Potassium 5.3 mEq/L (3.5-5.1); Protein, Total 7.8 g/dL (6.4-8.2)
[2022-11-19 15:16] LABS: Troponin High Sensitivity 419.5 pg/mL (<58.9)
--- NOTE | 2022-11-19 15:27 | RAD REPORT ---
EXAM DESCRIPTION: RAD - Chest Single View - 11/19/2022 3:22 pm CLINICAL HISTORY: COUGH COMPARISON: Chest Single View dated 08/05/2022; Chest Single View dated 08/04/2022; Chest Single View dated 07/31/2022; Chest Single View dated 01/21/2022 FINDINGS: Lines: None. Lungs: No evidence of edema or pneumonia. Low lung volumes. Pleural: No significant pleural effusions or pneumothorax. Cardiac: The heart size is within normal limits. Mediastinum: Within normal limits. Bones: No acute fractures. Other: None IMPRESSION: No acute cardiopulmonary disease.
[2022-11-19 15:36] LABS: Protime INR 1.03
[2022-11-19 15:39] LABS: Absolute Lymphocytes (CBC) 0.6 K/uL (0.7-4.9); Hematocrit 50.5 % (39.6-49.0); MPV 8.5 fL (7.6-11.3); RBC Red Blood Cell Count 4.95 M/uL (4.33-5.43)
--- NOTE | 2022-11-19 16:11 | ER ---
Nurse's Notes [facility] Name: George Ryder Age: 67 yrs Sex: Male : 1955 Arrival Date: 11/19/2022 Time: 13:23 Bed 7 Private MD: Diagnosis: Acute and chronic respiratory failure with hypercapnia;Acute and chronic respiratory failure with hypoxia;Pleural effusion in other conditions classified elsewhere-left moderate, trace right;Hyperkalemia;Non ST elevation DE;Obesity, unspecified;Severe sepsis without septic shock;Type 2 diabetes mellitus with hyperglycemia;Pneumonia, unspecified organism;Do not resuscitate Presentation: 11/19 13:26 Chief complaint: EMS states: "Toned out for AMS more than usual per [facility], Found pt at noon only responsive to painful stimuli. Pt has history of Dementia and usually able to respond and talk. Abrasion noted to pts right forearm, facility denies pt falling". Coronavirus screen: At this time, the client does not indicate any symptoms associated with coronavirus-19. Ebola Screen: No symptoms or risks identified at this time. Initial Sepsis Screen: Does the patient meet any 2 criteria? RR > 20 per min. Altered Mental Status. HR > 90 bpm. Does the patient have a suspected source of infection? No. Patient's initial sepsis screen is negative. Risk Assessment: Do you want to hurt yourself or someone else? Patient reports no desire to harm self or others. Onset of symptoms was November 19, 2022. 13:26 Method Of Arrival: EMS: [facility] mb9 13:26 Acuity: CYRUS 2 mb9 Triage Assessment: 13:32 General: Appears ill, malnourished, Behavior is responsive to painful stimuli . Pain: mb9 Unable to use pain scale. Patient is unresponsive. Neuro: Level of Consciousness is lethargic, Oriented to none. Respiratory: Airway is patent Respiratory effort is unlabored, Respiratory pattern is tachypnea. Derm: Skin is fragile, with poor turgor has skin tears on right forearm. Musculoskeletal: Range of motion: limited in left hip, left knee, left ankle, right hip, right knee and right ankle. Historical: - Allergies: 13:30 No Known Allergies; mb9 - Home Meds: 13:30 allopurinol 300 mg Oral tab 1 tab once daily [Active]; baclofen 10 mg Oral tab 1 tab mb9 nightly [Active]; Metoprolol Tartrate Oral [Active]; sildenafil Oral [Active]; mirtazapine 15 mg Oral tab 1 tab nightly [Active]; mupirocin Topical [Active]; metoprolol tartrate 25 mg Oral tablet once [Active]; - PMHx: 13:30 CHF; Dementia; Diabetes - NIDDM; High Cholesterol; Hypertension; Prostate; PULMONARY mb9 HYPERTENSION; - PSHx: 13:30 Unable to Obtain; mb9 - Immunization history:: Adult Immunizations unknown. - Social history:: Smoking status: unknown. - Family history:: not pertinent. Screenin:10 [facility] ED Fall Risk Assessment (Adult) History of falling in the last 3 months, mb9 including since admission Yes- fall prone (multiple falls) (3 pts) Confusion or Disorientation No (0 pts) Intoxicated or Sedated No (0 pts) Impaired Gait Yes (1 pt) Mobility Assist Device Used Yes (1 pt) Altered Elimination No (0 pt) Score/Fall Risk Level 0 - 2 = Low Risk Oriented to surroundings, Maintained a safe environment, Educated pt \\T\\ family on fall prevention, incl call for assistance when getting out of bed. Abuse screen: Denies threats or abuse. Nutritional screening: No deficits noted. Tuberculosis screening: No symptoms or risk factors identified. Assessment: 14:10 Reassessment: pt taken to CT via stretcher. mb9 14:35 Reassessment: No changes from previously documented assessment. Patient and/or family mb9 updated on plan of care and expected duration. Pain level reassessed. responds to painful stimuli. 15:30 Reassessment: No changes from previously documented assessment. Patient and/or family mb9 updated on plan of care and expected duration. Pain level reassessed. 15:30 Neuro: Level of Consciousness is lethargic, responds to painful stimuli . mb9 17:02 Reassessment: ERP notified of pts BP. No new orders at this time. mb9 17:03 Reassessment: responds to painful stimuli. airway is patent, respirations are even and mb9 unlabored. Vital Signs: 13:26 BP 142 / 110; Pulse 96; Resp 28; Temp 97.5; Pulse Ox 90% on 3 lpm NC; Weight 90.72 kg; mb9 Height 5 ft. 8 in. ; 14:11 BP 132 / 91; Pulse 118; Resp 32; Pulse Ox 98% on R/A; mb9 15:51 BP 90 / 76; Pulse 97; Resp 18; Pulse Ox 99% on 45 lpm BiPAP; mb9 17:02 BP 76 / 47; Pulse 98; Resp 18; Pulse Ox 98% on 45 lpm BiPAP; mb9 17:58 BP 81 / 57; Pulse 92; Resp 20; Pulse Ox 98% on 45 lpm BiPAP; mb9 13:26 Body Mass Index 30.41 (90.72 kg, 172.72 cm) mb9 ED Course: 13:26 Patient arrived in ED. mb9 13:28 Mitch Sesay MD is Attending Physician. [facility] 13:30 Triage completed. mb9 13:30 Arm band placed on. mb9 13:34 Placed in gown. Bed in low position. Call light in reach. Side rails up X 1. Client mb9 placed on continuous cardiac and pulse oximetry monitoring. NIBP monitoring applied. library monitor on. 14:09 Yvette Salter, RN is Primary Nurse. mb9 14:10 First set of blood cultures drawn. mb9 14:11 Soto cath inserted, using sterile technique, 16 Fr., by ms, balloon inflated, urine mb9 specimen collected. returned kyle urine. Patient tolerated well. Inserted saline lock: 22 gauge in left forearm, using aseptic technique. hand, using aseptic technique. Blood collected. 14:22 Lactate w/ 2H reflex if indic. Sent. mm9 14:22 Blood Culture Adult (2) Sent. mm9 14:22 ABG Sent. mm9 14:22 Urinalysis w/ reflexes Sent. mm9 14:22 AMMONIA Sent. mm9 14:22 Lipase Sent. mm9 14:22 Basic Metabolic Panel Sent. mm9 14:23 Side rails up X2. Warm blanket given. Pillow given. Pulse ox on. NIBP on. mm9 14:23 CBC with Diff Sent. mm9 14:23 LFT's Sent. mm9 14:23 Magnesium Sent. mm9 14:23 NT PRO-BNP Sent. mm9 14:23 PT-INR Sent. mm9 14:23 Troponin HS Sent. mm9 14:23 Initial lab(s) drawn, by ED staff, sent to lab. Urine collected: Soto catheter mm9 specimen, tea colored. 14:34 Head C Spine Cap Wo Con In Process Unspecified. EDMS 14:47 EKG done, by ED staff, reviewed by Mitch Sesay MD Flu and/or RSV swab sent to lab. mm9 Strep swab sent to lab. 14:57 Flu Sent. mb9 14:57 COVID-19 SARS RT PCR Sent. mb9 15:25 XRAY Chest (1 view) In Process Unspecified. EDMS 16:07 Neha Jacobsen MD is Hospitalizing Provider. adeline 18:10 No provider procedures requiring assistance completed. Patient admitted, IV remains in mb9 place. Administered Medications: 13:34 CANCELLED (Duplicate Order): NS 0.9% IV 250 ml IV at bolus once adeline 14:30 Drug: NS 0.9% IV 500 ml Route: IV; Rate: bolus; Site: left forearm; mb9 14:30 Drug: Levalbuterol Inhalation 3.75 mg Route: Inhalation; mb9 14:30 Drug: Ipratropium Inhalation Aerosol 0.5 mg Route: Inhalation; mb9 14:50 Drug: Rocephin IV 1 grams Route: IV; Rate: per protocol; Site: left hand; mb9 15:12 Drug: NS 0.9% IV 1000 ml Route: IV; Rate: 125 ml/hr; Site: left hand; mb9 16:15 Drug: Piperacillin-Tazobactam IVPB 3.375 grams Route: IVPB; Infused Over: 60 mins; mb9 Site: left forearm; 17:04 Not Given (Physician Discretion): Ativan IVP 1 mg IVP once mb9 17:51 CANCELLED (Duplicate Order): NS 0.9% IV 1000 ml IV at 1 bolus Per protocol; 1000 mL adeline bolus 17:57 Drug: NS 0.9% IV 500 ml Route: IV; Rate: bolus; Site: left hand; mb9 17:58 Drug: NS 0.9% IV 1000 ml Route: IV; Rate: 1 bolus; Site: left hand; mb9 Medication: 14:11 VIS not applicable for this client. mb9 Outcome: 16:10 Decision to Hospitalize by Provider. adeline 18:09 Admitted to ICU accompanied by nurse, accompanied by tech, room 8, with oxygen, on mb9 monitor, with chart, Report called to DAGO Burch 18:09 Condition: stable 18:09 Instructed on the need for admit. 18:33 Patient left the ED. mb9 Signatures: Dispatcher [employer] Mitch Hernandez MD MD cha Martinez, Maria mm9 Breneman, Mary Beth, RN RN mb9 Corrections: (The following items were deleted from the chart) 17:03 14:35 Reassessment: No changes from previously documented assessment. Patient and/or mb9 family updated on plan of care and expected duration. Pain level reassessed. mb9
--- NOTE | 2022-11-19 16:11 | EDPHYS ---
Physician Documentation [facility] Name: George Ryder Age: 67 yrs Sex: Male : 1955 Arrival Date: 11/19/2022 Time: 13:23 Bed 7 Private MD: ED Physician Mitch Sesay HPI: 11/19 13:54 This 67 yrs old Male presents to ER via EMS with complaints of ams, adeline unresponsive. 13:54 The patient presents with generalized weakness. Onset: The symptoms/episode adeline began/occurred today. Context: occurred at home, occurred while the patient was at rest, just prior to the episode the patient experienced no apparent symptoms. Modifying factors: The symptoms are alleviated by nothing, the symptoms are aggravated by nothing. Associated signs and symptoms: Pertinent positives: shortness of breath. Severity of symptoms: At their worst the symptoms were moderate in the emergency department the symptoms are unchanged. Patient's baseline: Neuro: alert but confused. Patient's baseline: Neuro: alert and fully oriented, Motor: contracted, diffusely, Ambulation: unable to walk, is bedridden. It is unknown whether or not the patient has had similar symptoms in the past. Historical: - Allergies: 13:30 No Known Allergies; mb9 - Home Meds: 13:30 allopurinol 300 mg Oral tab 1 tab once daily [Active]; baclofen 10 mg Oral tab 1 tab mb9 nightly [Active]; Metoprolol Tartrate Oral [Active]; sildenafil Oral [Active]; mirtazapine 15 mg Oral tab 1 tab nightly [Active]; mupirocin Topical [Active]; metoprolol tartrate 25 mg Oral tablet once [Active]; - PMHx: 13:30 CHF; Dementia; Diabetes - NIDDM; High Cholesterol; Hypertension; Prostate; PULMONARY mb9 HYPERTENSION; - PSHx: 13:30 Unable to Obtain; mb9 - Immunization history:: Adult Immunizations unknown. - Social history:: Smoking status: unknown. - Family history:: not pertinent. ROS: 13:54 Constitutional: Negative for fever, chills, and weight loss. adeline 13:54 Unable to obtain ROS due to baseline dementia, obtunded state. Exam: 13:54 Constitutional: The patient appears lethargic. adeline 13:54 Chest/axilla: Exam negative for acute changes. 13:54 Cardiovascular: Rate: normal, actual rate is 96 bpm, Rhythm: regular, Pulses: Pulses are 4+ in bilateral radial, brachial, femoral, popliteal, posterior tibial and and dorsalis pedis arteries.. Heart sounds: normal, Edema: is not appreciated, JVD: is not appreciated. 13:54 Neuro: Orientation: unable to test, not responsive, to pain only. Vital Signs: 13:26 BP 142 / 110; Pulse 96; Resp 28; Temp 97.5; Pulse Ox 90% on 3 lpm NC; Weight 90.72 kg; mb9 Height 5 ft. 8 in. ; 14:11 BP 132 / 91; Pulse 118; Resp 32; Pulse Ox 98% on R/A; mb9 15:51 BP 90 / 76; Pulse 97; Resp 18; Pulse Ox 99% on 45 lpm BiPAP; mb9 17:02 BP 76 / 47; Pulse 98; Resp 18; Pulse Ox 98% on 45 lpm BiPAP; mb9 17:58 BP 81 / 57; Pulse 92; Resp 20; Pulse Ox 98% on 45 lpm BiPAP; mb9 13:26 Body Mass Index 30.41 (90.72 kg, 172.72 cm) mb9 MDM: 13:28 Patient medically screened. adeline 13:59 Differential diagnosis: cardiac arrhythmia, CVA, generalized weakness, GI bleed, adeline near-syncope, , TIA. Data reviewed: vital signs, nurses notes, EMS record, lab test result(s), EKG, radiologic studies, CT scan, plain films. Consideration of Admission/Observation Escalation of care including admission/observation considered. Independent interpretation of the following test(s) in the Emergency Department CT Scan: My interpretation is ct brain. Test considered but Not performed: EKG: no mri. Historians other than the Patient: EMS: ems informed. Care significantly affected by the following chronic conditions: Diabetes, Hypertension, Congestive Heart Failure, dementia. 14:28 Management of patient was discussed with the following: Hospitalist: dr gonsalves. adeline Counseling: I had a detailed discussion with the patient and/or guardian regarding: the historical points, exam findings, and any diagnostic results supporting the discharge/admit diagnosis, lab results, radiology results, the need for further work-up and treatment in the hospital. 17:52 ED course: DNR SIGN WITH AUNT , NO PRESSORS, NO CENTRAL LINE, NO INTUBATION, NO adeline CARDIOVERSION, ABX , COMFORT MEASURES ONLY, NON INVASIVE O2. 11/19 13:33 Order name: Basic Metabolic Panel; Complete Time: 15:37 [facility] 11/19 13:33 Order name: CBC with Diff [facility] 11/19 13:33 Order name: LFT's; Complete Time: 15:37 [facility] 11/19 13:33 Order name: Magnesium; Complete Time: 15:37 [facility] 11/19 13:33 Order name: NT PRO-BNP; Complete Time: 15:37 [facility] 11/19 13:33 Order name: PT-INR; Complete Time: 15:42 [facility] 11/19 13:33 Order name: Troponin HS; Complete Time: 15:37 [facility] 11/19 13:33 Order name: Lipase; Complete Time: 15:37 [facility] 11/19 13:33 Order name: AMMONIA; Complete Time: 15:37 [facility] 11/19 13:33 Order name: Urinalysis w/ reflexes; Complete Time: 15:37 [facility] 11/19 13:33 Order name: ABG; Complete Time: 14:28 [facility] 11/19 13:33 Order name: Flu; Complete Time: 15:37 [facility] 11/19 13:33 Order name: COVID-[address] [facility] 11/19 13:34 Order name: Blood Culture Adult (2) [facility] 11/19 13:34 Order name: Lactate w/ 2H reflex if indic.; Complete Time: 15:37 [facility] 11/19 13:49 Order name: Glucose, Ancillary Testing; Complete Time: 14:28 [facility] 11/19 17:26 Order name: ABG Arterial Blood Gas [facility] 11/19 17:26 Order name: CBC with Automated Diff [facility] 11/19 17:26 Order name: CBC with Automated Diff [facility] 11/19 17:26 Order name: Comprehensive Metabolic Panel [facility] 11/19 17:26 Order name: Comprehensive Metabolic Panel [facility] 11/19 17:26 Order name: Lactate w/ 2H reflex if indic. [facility] 11/19 17:26 Order name: Lactate w/ 2H reflex if indic. [facility] 11/19 17:26 Order name: Magnesium [facility] 11/19 17:26 Order name: Magnesium [facility] 11/19 17:26 Order name: NT PRO-BNP [facility] 11/19 17:26 Order name: NT PRO-BNP [facility] 11/19 17:26 Order name: Phosphorus [facility] 11/19 17:26 Order name: Phosphorus [facility] 11/19 17:26 Order name: T4 Free [facility] 11/19 17:26 Order name: T4 Free [facility] 11/19 17:26 Order name: Thyroid Stimulating Hormone [facility] 11/19 17:26 Order name: Thyroid Stimulating Hormone [facility] 11/19 17:26 Order name: Troponin High Sensitivity [facility] 11/19 17:26 Order name: Troponin High Sensitivity [facility] 11/19 17:26 Order name: Troponin High Sensitivity [facility] 11/19 17:26 Order name: Troponin High Sensitivity [facility] 11/19 13:33 Order name: XRAY Chest (1 view); Complete Time: 15:37 [facility] 11/19 14:13 Order name: Head C Spine Cap Wo Con; Complete Time: 15:37 [facility] 11/19 14:28 Order name: BIPAP [facility] 11/19 14:30 Order name: ARTERIAL BLOOD GAS [facility] 11/19 14:30 Order name: BiPap ([employer] Only) [facility] 11/19 15:12 Order name: BiPap ([employer] Only) [facility] 11/19 13:33 Order name: EKG; Complete Time: 13:34 [facility] 11/19 17:26 Order name: CONS Physician Consult [facility] 11/19 17:26 Order name: Regular [facility] 11/19 13:33 Order name: Cardiac monitoring; Complete Time: 14:12 [facility] 11/19 13:33 Order name: EKG - Nurse/Tech; Complete Time: 14:47 [facility] 11/19 13:33 Order name: IV Saline Lock; Complete Time: 14:12 [facility] 11/19 13:33 Order name: Labs collected and sent; Complete Time: 14:12 [facility] 11/19 13:33 Order name: O2 Per Protocol; Complete Time: 14:12 [facility] 11/19 13:33 Order name: O2 Sat Monitoring; Complete Time: 14:12 [facility] 11/19 13:33 Order name: Soto; Complete Time: 14:06 [facility] Administered Medications: 13:34 CANCELLED (Duplicate Order): NS 0.9% IV 250 ml IV at bolus once adeline 14:30 Drug: NS 0.9% IV 500 ml Route: IV; Rate: bolus; Site: left forearm; mb9 14:30 Drug: Levalbuterol Inhalation 3.75 mg Route: Inhalation; mb9 14:30 Drug: Ipratropium Inhalation Aerosol 0.5 mg Route: Inhalation; mb9 14:50 Drug: Rocephin IV 1 grams Route: IV; Rate: per protocol; Site: left hand; mb9 15:12 Drug: NS 0.9% IV 1000 ml Route: IV; Rate: 125 ml/hr; Site: left hand; mb9 16:15 Drug: Piperacillin-Tazobactam IVPB 3.375 grams Route: IVPB; Infused Over: 60 mins; mb9 Site: left forearm; 17:04 Not Given (Physician Discretion): Ativan IVP 1 mg IVP once mb9 17:51 CANCELLED (Duplicate Order): NS 0.9% IV 1000 ml IV at 1 bolus Per protocol; 1000 mL adeline bolus 17:57 Drug: NS 0.9% IV 500 ml Route: IV; Rate: bolus; Site: left hand; mb9 17:58 Drug: NS 0.9% IV 1000 ml Route: IV; Rate: 1 bolus; Site: left hand; mb9 Disposition Summary: 11/19/22 16:10 Hospitalization Ordered Hospitalization Status: Inpatient Admission adleine Provider: Neha Gonsalves cha Condition: Serious adeline Problem: new adeline Symptoms: have improved adeline Bed/Room Type: Standard adeline Location: Intensive Care Unit(11/19/22 17:51) eb Room Assignment: 8-(11/19/22 17:51) eb Diagnosis - Acute and chronic respiratory failure with hypercapnia adeline - Acute and chronic respiratory failure with hypoxia adeline - Pleural effusion in other conditions classified elsewhere - left moderate, trace adeline right - Hyperkalemia adeline - Non ST elevation ID adeline - Obesity, unspecified adeline - Severe sepsis without septic shock adeline - Type 2 diabetes mellitus with hyperglycemia adeline - Pneumonia, unspecified organism adeline - Do not resuscitate adeline Forms: - Medication Reconciliation Form adeline - SBAR form adeline Critical care time excluding procedures: 16:16 Critical care time: Bedside Care: 225 minutes, Consultation: 10 minutes, Family adeline Intervention: 15 minutes. Total time: 250 minutes 16:16 Critical care time: Bedside Care: 25 minutes, Consultation: 10 minutes, Family adeline Intervention: 15 minutes. Total time: 50 minutes Signatures: Dispatcher [employer] EDMS Lázaro, Mitch, MD MD adeline Carvajal, Parul eb Breneman, June, RN RN mb9 Corrections: (The following items were deleted from the chart) 13:34 13:33 NS 0.9% IV 250 ml IV at bolus once ordered. [facility] 14:13 13:34 Head Brain Wo Cont+CT.RAD.BRZ ordered. EDMS EDMS 17: 17:50 NS 0.9% IV 1000 ml IV at 1 bolus Per protocol; 1000 mL bolus ordered. [facility] 16:10 Telemetry/MedSurg (Inpatient) [facility] 16:10 [facility]
[2022-11-19] MEDS ORDERED: NA CHLORIDE 0.9% 100 ML ONE (16:16)
[2022-11-19] MEDS ORDERED: PIPERACIL/TAZO 3.375 GM VIAL IV ONE (16:16)
[2022-11-19] MEDS ORDERED: ACETAMINOPHEN 500 MG TAB PO PRN (17:12)
[2022-11-19] MEDS ORDERED: ONDANSETRON 4 MG/2 ML VIAL IV PRN (17:12)
[2022-11-19] MEDS: NA CHLORIDE 0.9% 1,000 ML IV SCH (18:45)
[2022-11-19] MEDS: ALBUTEROL 2.5 MG/3 ML NEB SOL NEB SCH (20:25)
[2022-11-19] MEDS: IPRATROPIUM BROM 0.5MG/2.5ML NEB SCH (20:25)
[2022-11-19] MEDS: ENOXAPARIN 40 MG/0.4 ML SQ SCH (21:12)
[2022-11-19] MEDS: METHYLPREDNISOLONE 125 MG INJ IV SCH (21:16)
[2022-11-20] MEDS: PIPER TAZO 3.375 GM in NA CHLORIDE 0.9% 100 ML IV SCH ×3 (01:55→17:21)
[2022-11-20] MEDS: NA CHLORIDE 0.9% 1,000 ML IV SCH (02:08)
[2022-11-20] MEDS: METHYLPREDNISOLONE 125 MG INJ IV SCH ×2 (02:09→06:41)
[2022-11-20] MEDS: IPRATROPIUM BROM 0.5MG/2.5ML NEB SCH ×5 (02:20→20:25)
[2022-11-20] MEDS: ALBUTEROL 2.5 MG/3 ML NEB SOL NEB SCH ×4 (02:20→20:25)
[2022-11-20 05:22] LABS: Absolute Lymphocytes (CBC) 0.3 K/uL (0.7-4.9); Hematocrit 42.9 % (39.6-49.0); Lymphocytes % 3.5 % (15.3-44.8); MCV 99.9 fL (80-100); MPV 8.3 fL (7.6-11.3); RBC Red Blood Cell Count 4.29 M/uL (4.33-5.43)
[2022-11-20 05:46] LABS: Albumin 2.5 g/dL (3.4-5.0); Bilirubin Total 0.5 mg/dL (0.2-1.0); Magnesium 2.3 mg/dL (1.6-2.4); Phosphorus 3.2 mg/dL (2.5-4.9); Potassium 5.3 mEq/L (3.5-5.1); Thyroid Stimulating Hormone 0.221 uIU/mL (0.358-3.740)
[2022-11-20 06:33] LABS: Arterial Blood Carboxyhemoglob 1.1 % (0-1.5); Blood Gas Oxyhemoglobin 64.7 % (94-97); Blood O2 Saturation 66.4 % (92-98.5)
[2022-11-20] MEDS: ENOXAPARIN 40 MG/0.4 ML SQ SCH (07:52)
[2022-11-20 08:10] LABS: Anisocytosis 1+; Blood Morphology Comment NOTED (NOT SEEN); Platelet Estimate ADEQ; White Blood Cell Scan OK (OK)
[2022-11-20] MEDS ORDERED: AMIODARONE HCL 150 MG in D5W 100 ML IV STA (10:30)
--- NOTE | 2022-11-20 10:39 | P.CNS ---
Date of Consult: 11/20/22 Reason for Consult: Respiratory failure pneumonia non-STEMI Chief Complaint: Unresponsiveness History of Present Illness: Patient is 67 years of age admitted with altered mental status found to have a left lower lobe pneumonia and non-STEMI history of of chronic respiratory failure. On BiPAP he is alert responsive cooperative has a history of pulmonary hypertension secondary to presumed diastolic heart failure is never smoked Allergies No Known Allergies Allergy (Verified 08/03/18 10:49) Home Medications: Allopurinol 300 mg PO DAILY 10/19/21 Mirtazapine [Remeron*] 15 mg PO BEDTIME 10/19/21 Sildenafil Citrate 20 mg PO Q12H 10/19/21 Spironolactone [Aldactone*] 25 mg PO BID #60 tab 10/21/21 acetaZOLAMIDE [Diamox*] 250 mg PO DAILY #30 tab 12/16/21 Albuterol Sulfate [Albuterol Sulfate 0.083% Neb Soln] 2.5 mg IH Q6H 01/22/22 Metoprolol Tartrate [Lopressor*] 0.5 tab PO BID 01/22/22 Mometasone/Formoterol [Dulera 200 Mcg-5 Mcg Inhaler] 2 puff IH BID 01/22/22 predniSONE [Prednisone*] 10 mg PO DAILY 01/22/22 - Past Medical/Surgical History Diabetic: Yes -: HTN -: DM -: Hyperlipidemia -: Pulmonary hypertension -: Diastolic CHF -: cataract sx -: appendectomy Psychosocial/ Personal History: Patient lives at an assisted living facility. - Family History Father Medical History: Heart disease, Hypertension, Diabetes Mother Medical History: Heart disease, Hypertension, Diabetes - Social History Smoking Status: Unknown if ever smoked Alcohol use: No CD- Drugs: No Caffeine use: No Place of [facility]idence: [facility] Review of Systems 10-point ROS is otherwise unremarkable General: Weakness Respiratory: Shortness of Breath Physical Examination Temp Pulse Resp BP Pulse Ox 97.8 F 97 H 22 H 98/56 L 98 11/20/22 08:00 11/20/22 09:00 11/20/22 09:00 11/20/22 09:00 11/20/22 09:00 General: Alert, Oriented x3 Respiratory: Crackles/rales (The left side) Cardiovascular: No edema, Normal pulses, Regular rate/rhythm Gastrointestinal: Normal bowel sounds, Soft and benign Laboratory Data (last 24 hrs) 11/19/22 14:10: PT 11.3, INR 1.03 11/19/22 14:10: WBC 16.00 H, Hgb 15.2, Hct 50.5 H, Plt Count 385 11/19/22 14:10: Sodium 136, Potassium 5.3 H, BUN 52 H, Creatinine 1.61 H, Glucose 202 H, Magnesium 2.7 H, Total Bilirubin 0.5, AST 17, ALT 23, Alkaline Phosphatase 95, Lipase 38 - Problems (1) Acute and chronic respiratory failure ([id number]) Current Visit: No Status: Acute Plan: Patient is 67 years of age with a history of pulmonary hypertension. With acute on chronic respiratory failure titrate his sat to 90% he has a left lower lobe consolidation continue with antibiotics and non-STEMI EKG available count is declined to 9.3 patient developed A-fib is currently on amiodarone i know history of COPD change to p.o. prednisone for now continue with albuterol patient will probably qualify for a noninvasive ventilator Qualifiers: Qualified Code(s): J96.21 - Acute and chronic respiratory failure with hypoxia; J96.22 - Acute and chronic respiratory failure with hypercapnia
[2022-11-20] MEDS ORDERED: AMIODARONE HCL 900 MG in Dextrose 5%-Water 482 ML IV SCH (11:00)
[2022-11-20] MEDS: ASPIRIN EC 81 MG TAB PO SCH (11:04)
[2022-11-20] MEDS: ENOXAPARIN 80 MG/0.8 ML SQ SCH (11:04)
[2022-11-20] MEDS: D5W 1,000 ML with NA BICARB 8.4% 50 MEQ IV SCH ×2 (12:58)
[2022-11-20 15:20] LABS: Blood Gas Oxyhemoglobin 90.4 % (94-97); Blood O2 Saturation 92.5 % (92-98.5)
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
--- NOTE | 2022-11-20 16:30 | RAD REPORT ---
EXAM DESCRIPTION: RAD - Chest Single View - 11/20/2022 4:18 pm CLINICAL HISTORY: PNEUMONIA Chest pain. COMPARISON: Chest Single View dated 11/19/2022; Chest Single View dated 08/05/2022; Chest Single View dated 08/04/2022; Chest Single View dated 07/31/2022 FINDINGS: Portable technique limits examination quality. Moderate bilateral pulmonary opacities, greater on the left. The lungs are underinflated. These findi ngs likely indicate pneumonia or asymmetric pulmonary edema. The heart is moderately enlarged.
[2022-11-20] MEDS: predniSONE 20 MG TAB PO SCH (21:02)
[2022-11-21] MEDS: PIPER TAZO 3.375 GM in NA CHLORIDE 0.9% 100 ML IV SCH ×3 (00:27→15:57)
[2022-11-21] MEDS: ALBUTEROL 2.5 MG/3 ML NEB SOL NEB SCH ×4 (02:55→20:55)
[2022-11-21] MEDS: D5W 1,000 ML with NA BICARB 8.4% 50 MEQ IV SCH ×2 (04:11)
[2022-11-21 05:41] LABS: Potassium 4.6 mEq/L (3.5-5.1)
[2022-11-21 05:46] LABS: Troponin High Sensitivity 1279.2 pg/mL (<58.9)
[2022-11-21 06:25] VITALS: BMI 32.6
[2022-11-21] MEDS: ASPIRIN EC 81 MG TAB PO SCH (08:04)
[2022-11-21] MEDS: predniSONE 20 MG TAB PO SCH ×2 (08:05→20:39)
[2022-11-21] MEDS: ENOXAPARIN 80 MG/0.8 ML SQ SCH (08:05)
[2022-11-21] MEDS: IPRATROPIUM BROM 0.5MG/2.5ML NEB SCH ×3 (08:45→20:55)
--- NOTE | 2022-11-21 09:09 | RAD REPORT ---
[facility] CLINICAL HISTORY: PNEUMONIA COMPARISON: Chest Single View dated 11/20/2022; Chest Single View dated 11/19/2022; Chest Single View dated 08/05/2022; Chest Single View dated 08/04/2022 TECHNIQUE: Portable AP view of the chest. FINDINGS: Decreased inspiratory effort, limits evaluation. Slightly improved aeration right base and left costophrenic angle. Persistent mid to lower lung airspace opacities otherwise. No pneumothorax or effusion. The cardiomediastinal contours are unremarkable. IMPRESSION: Mild partial interval improvement in the bibasilar lungs as above. Other persistent left sided air space opacities.
--- NOTE | 2022-11-21 10:12 | P.PN ---
Subjective Date of Service: 11/21/22 Chief Complaint: Respiratory failure Subjective: Improving (In his room improving more alert however is disoriented still cannula oxygen) Review of Systems Respiratory: Shortness of Breath Physical Examination - Vital Signs Temperature: 96.5 F Blood Pressure: 98/57 Pulse: 86 Respirations: 22 Pulse Ox (%): 95 - Physical Exam General: Alert, Oriented x1 Respiratory: Clear to auscultation bilaterally, Diminished Cardiovascular: Edema Gastrointestinal: Normal bowel sounds, Soft and benign Assessment And Plan - Current Problems (Diagnosis) (1) Acute and chronic respiratory failure ([id number]) Current Visit: No Status: Acute Plan: Admitted with acute on chronic respiratory failure is currently on nasal cannula he will qualify for a noninvasive ventilator patient's white count has declined significantly his troponins still remain very elevated although however they have declined patient is eating and drinking x-ray shows lower lung volumes pressures little little low renal function is slightly worse ordered a noninvasive ventilator for home cultures are so far negative difficult to exclude a loculated effusion in the left face Qualifiers:
--- NOTE | 2022-11-21 10:18 | P.PN ---
Date of Service: 11/20/22 Subjective Patient is currently doing well with no new complaints. Weaned off of BiPAP support. Patient is awake and alert. Awaiting for culture results and continue with antibiotic therapy. Physical Examination - Vital Signs Reviewed - Physical Exam General: Alert, In no apparent distress, Demented, Unresponsive Respiratory: Diminished, Rhonchi/gurgles Cardiovascular: Regular rate/rhythm, Normal S1 S2, No murmurs Gastrointestinal: Normal bowel sounds, Soft and benign, Non-distended, No tenderness Neurological: Other (contractures), Abnormal strength, Dementia Assessment & Plan - Problems (Diagnosis) (1) Pneumonia Current Visit: Yes Status: Acute (2) Acute and chronic respiratory failure ([id number]) Current Visit: No Status: Acute (3) Congestive heart failure Current Visit: No Status: Chronic Heart failure type: diastolic Heart failure chronicity: chronic Qualified Code(s): I50.32 - Chronic diastolic (congestive) heart failure (4) Coronary artery disease; elevated troponin Current Visit: No Status: Chronic Coronary Disease-Associated Artery/Lesion type: [place] artery [place] vs. transplanted heart: [place] heart Associated angina: without angina Qualified Code(s): I25.10 - Atherosclerotic heart disease of [place] coronary artery without angina pectoris (5) Pulmonary hypertension Current Visit: No Status: Chronic (6) Type 2 diabetes mellitus Current Visit: No Status: Chronic Diabetes mellitus halfway insulin use: without halfway use Diabetes mellitus complication status: with hyperglycemia Qualified Code(s): E11.65 - Type 2 diabetes mellitus with hyperglycemia (7) Acute on chronic kidney disease III Current Visit: No Status: Acute - Plan Plan of care as mentioned below: 1. Continue with IV antibiotics 2. Awaiting cultures 3. Repeat chest x-ray i nAM 4. Weaned off BiPAP support 5. Pulmonary consultation appreciated 6. Continue with nebs as needed 7. O2 per protocol 8. Heplock IV 9. Repeat labs 10. Cardiology consult; Echo pending 11. GI/DVT prophylaxis Discharge Plan: Usp Plan to discharge in: Greater than 2 days - Advance Directives Does patient have a Living Will: Yes Does patient have a Durable POA for Healthcare: Yes - Code Status/Comfort Care Code Status Assessed: Yes Code Status: Do Not Attempt Resuscitat Critical Care: Yes
[2022-11-21] MEDS ORDERED: ALBUMIN HUMAN 25% 100 ML IV ONE (10:21)
[2022-11-21 11:43] LABS: Absolute Lymphocytes (CBC) 0.2 K/uL (0.7-4.9); Hematocrit 39.2 % (39.6-49.0); Lymphocytes % 2.3 % (15.3-44.8); MCV 99.5 fL (80-100); MPV 8.4 fL (7.6-11.3); RBC Red Blood Cell Count 3.94 M/uL (4.33-5.43)
[2022-11-21 12:03] LABS: Albumin 2.5 g/dL (3.4-5.0); Bilirubin Total 0.4 mg/dL (0.2-1.0); Potassium 4.4 mEq/L (3.5-5.1)
[2022-11-21 12:24] LABS: White Blood Cell Scan OK (OK)
[2022-11-21 12:25] LABS: Blood Morphology Comment NOT SEEN (NOT SEEN); Platelet Estimate ADEQ
[2022-11-21] MEDS ORDERED: ALBUTEROL 2.5 MG/3 ML NEB SOL IH PRN (15:06)
[2022-11-21] MEDS ORDERED: GLUCAGON 1 MG/VIAL IM PRN (15:08)
[2022-11-21] MEDS ORDERED: D50W 25 GM/50 ML SYRINGE IV PRN (15:08)
[2022-11-21] MEDS ORDERED: INSULIN 70/30 100 UNITS/ML SQ ONE (15:08)
[2022-11-21] MEDS: AMIODARONE HCL 200 MG TAB PO SCH ×2 (15:57→20:39)
--- NOTE | 2022-11-21 16:35 | P.PN ---
Date of Service: 11/21/22 Subjective Change amiodarone to 200 mg twice a day orally. Will transfer to general medical floor. Patient should be able to go to [facility] over the next 24 to 48 hours if patient continues to remain stable clinically. Have spoken to family regarding considering hospice care. Physical Examination - Vital Signs Reviewed - Physical Exam General: Alert, In no apparent distress, Demented, and more awake and alert Respiratory: Clear bilaterally Cardiovascular: Regular rate/rhythm, Normal S1 S2, No murmurs Gastrointestinal: Normal bowel sounds, Soft and benign, Non-distended, No tenderness Neurological: Other (contractures), Abnormal strength, Dementia Assessment & Plan - Problems (Diagnosis) (1) Pneumonia Current Visit: Yes Status: Acute (2) Acute and chronic respiratory failure ([id number]) Current Visit: No Status: Acute (3) Congestive heart failure Current Visit: No Status: Chronic Heart failure type: diastolic Heart failure chronicity: chronic Qualified Code(s): I50.32 - Chronic diastolic (congestive) heart failure (4) Coronary artery disease; elevated troponin Current Visit: No Status: Chronic Coronary Disease-Associated Artery/Lesion type: [place] artery [place] vs. 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 Continue with IV antibiotics; changed to oral antibiotics 2. Awaiting cultures so far negative 3. Chest x-ray shows improvement 4. Pulmonary to arrange for outpatient noninvasive ventilator 5. Continue with strict blood sugar control 6. Continue with nebs as needed 7. O2 per protocol 8. Heplock IV 9. Repeat labs 10. Cardiology consult added; amiodarone changes completed. Eliquis twice a day; Echo pending 11. GI/DVT prophylaxis Discharge Plan: Correction Plan to discharge in: Greater than 2 days - Advance Directives Does patient have a Living Will: Yes Does patient have a Durable POA for Healthcare: Yes - Code Status/Comfort Care Code Status Assessed: Yes Code Status: Do Not Attempt Resuscitat Critical Care: no
[2022-11-21] MEDS: SILDENAFIL CITRATE 20 MG TABLET PO SCH (18:18)
[2022-11-21] MEDS: MUPIROCIN 2% OINT 22GM TUBE TOP SCH (20:38)
[2022-11-21] MEDS: APIXABAN 2.5 MG TABLET PO SCH (20:40)
[2022-11-21] MEDS: MIRTAZAPINE 15 MG TAB PO SCH (20:40)
[2022-11-21] MEDS: SPIRONOLACTONE 25 MG TABLET PO SCH (20:40)
[2022-11-21] MEDS: DULERA 200/5 (MOMETASONE/FORMOTEROL) INHALER IH SCH (20:40)
[2022-11-21] MEDS: INSULIN GLARGINE 100 UNIT/ML SQ SCH (20:41)
[2022-11-21] MEDS: METOPROLOL TAR 25 MG TAB PO SCH (23:49)
[2022-11-22] MEDS: PIPER TAZO 3.375 GM in NA CHLORIDE 0.9% 100 ML IV SCH ×3 (00:51→18:06)
[2022-11-22] MEDS: ALBUTEROL 2.5 MG/3 ML NEB SOL NEB SCH ×4 (02:20→19:30)
[2022-11-22] MEDS: IPRATROPIUM BROM 0.5MG/2.5ML NEB SCH ×4 (02:20→19:30)
[2022-11-22] MEDS: SILDENAFIL CITRATE 20 MG TABLET PO SCH ×2 (07:00→22:11)
[2022-11-22] MEDS ORDERED: ASPIRIN EC 81 MG TAB PO SCH (09:00)
[2022-11-22] MEDS: ASPIRIN EC 81 MG TAB PO SCH (09:00)
[2022-11-22] MEDS: predniSONE 20 MG TAB PO SCH ×2 (09:00→22:11)
[2022-11-22] MEDS: SPIRONOLACTONE 25 MG TABLET PO SCH ×2 (09:00→22:12)
[2022-11-22] MEDS: METOPROLOL TAR 25 MG TAB PO SCH ×2 (09:00→22:12)
[2022-11-22] MEDS: AMIODARONE HCL 200 MG TAB PO SCH ×2 (09:00→22:12)
[2022-11-22] MEDS: acetaZOLAMIDE 250 MG TAB PO SCH (09:00)
[2022-11-22] MEDS: APIXABAN 2.5 MG TABLET PO SCH ×2 (09:00→22:12)
--- NOTE | 2022-11-22 11:46 | EKG ---
Test Date: 2022-11-20 Test Time: 20:53:52 Assistance Coordinator: JORDAN MEASUREMENT RESULTS: Intervals: Rate: 104 PA: 168 QRSD: 96 QT: 350 QTc: 460 [place]: P: 9 PA: 168 QRS: 103 T: -62 INTERPRETIVE STATEMENTS: Sinus tachycardia Possible Left atrial enlargement Rightward axis Incomplete right bundle branch block Inferior infarct, age undetermined ST & T wave abnormality, consider anterolateral ischemia Abnormal ECG Compared to ECG 11/19/2022 14:44:08 Right-axis deviation now present Incomplete right bundle-branch block now present Sinus rhythm no longer present Myocardial infarct finding still present ST (T wave) deviation still present Possible ischemia still present Electronically Signed On 11-22-22 11:44:14 CDT by Yared Olivares
--- NOTE | 2022-11-22 11:49 | EKG ---
Test Date: 2022-11-20 Test Time: 10:16:29 Materials Handler: GUILLERMO MEASUREMENT RESULTS: Intervals: Rate: 125 [place]: QRSD: 88 QT: 324 QTc: 467 [place]: P: [place]: QRS: 121 T: -81 INTERPRETIVE STATEMENTS: Atrial fibrillation with rapid ventricular response Possible Right ventricular hypertrophy Inferior infarct, age undetermined ST & T wave abnormality, consider anterolateral ischemia or digitalis effect Abnormal ECG Compared to ECG 11/19/2022 14:44:08 Sinus rhythm no longer present Myocardial infarct finding still present ST (T wave) deviation still present Possible ischemia still present Electronically Signed On 11-22-22 11:45:42 CDT by aYred Olivares
[2022-11-22] MEDS: DULERA 200/5 (MOMETASONE/FORMOTEROL) INHALER IH SCH ×2 (14:15→22:13)
[2022-11-22] MEDS: allopurinoL 300 MG TAB PO SCH (14:15)
[2022-11-22] MEDS: MUPIROCIN 2% OINT 22GM TUBE TOP SCH ×2 (14:16→22:13)
--- NOTE | 2022-11-22 15:10 | P.PN ---
Subjective Date of Service: 11/22/22 Chief Complaint: Unresponsiveness No acute events overnight. He is sitting upright and eating breakfast this morning. He is in good spirits and endorses no concerns. He denies any chest pain, palpitations, or shortness of breath. Review of Systems 10-point ROS is otherwise unremarkable General: Weakness (generalized) Physical Examination - Vital Signs Temperature: 98.0 F Blood Pressure: 100/63 Pulse: 96 Respirations: 18 Pulse Ox (%): 93 - Physical Exam General: Alert, In no apparent distress, Oriented x3 HEENT: Atraumatic, Mucous membr. moist/pink, Sclerae nonicteric Neck: JVD not distended Respiratory: Diminished, Rhonchi/gurgles (scattered) Cardiovascular: No edema, No murmurs, Irregular heart rate/rhythm Gastrointestinal: Normal bowel sounds, Soft and benign, Non-distended, No tenderness, No rebound, No guarding Musculoskeletal: No clubbing Integumentary: No rashes Neurological: Normal gait, Normal affect Assessment And Plan - Plan # Acute Toxic Metabolic Encephalopathy likely secondary to Acute on Chronic Hypercapnic Respiratory Failureimproved # Pulmonary Hypertension # History of Multi-Drug Resistant Urinary Tract Infections - Evaluation thus far: - Urinalysis = 3+ blood, 250 leukocyte esterase, > 50 RBCs, trace protein - Initial ABG = pH 7.10, PCO2 98.5, PO2 80.5 - CT head/cervical spine/chest/abdomen/pelvis = "1. Head CT: No acute intracranial abnormality. 2. Cervical spine CT: No acute fracture or traumatic malalignment of the cervical spine. 3. Chest CT: Moderate left and trace right pleural effusion. Left lower lobe and lingular consolidation concerning for pneumonia though there is likely some component of atelectasis as well. 4. CT abdomen/pelvis: No acute intra-abdominal abnormality. Moderate rectal stool burden could indicate fecal impaction. Other incidental findings as noted above" - Chest x-ray (11/21) = "mild partial interval improvement in the bibasilar lungs as above. Other persistent left sided air space opacities." - Management plan: - Consulted Pulmonology - recommendations appreciated - Requested overnight pulse oximetry to evaluate for obstructive sleep apnea # Severe Sepsis likely secondary to Pneumonia He met SIRS criteria based on HR > 90 bpm, RR > 20 breaths/min, WBC > 12,000, and the suspected source is pulmonary. Severe sepsis is suspected due to concern for tissue hypoperfusion/organ dysfunction based on acute respiratory failure requiring BiPAP. - Sepsis order set was initiated - Initial Lactate was 1.1 - Blood cultures drawn - Broad spectrum antibiotics started: Piperacillin-Tazobactam - In regards to fluids: - 30 mL/kg of IV fluids was not administered given SBP > 90, MAP > 65, lactic acid < 4 # Suspect Type II Non-ST Segment Elevation Myocardial Infarction (Demand Ischemia) due to above # Chronic Compensated Diastolic Congestive Heart Failure with Preserved Ejection Fraction # Moderate Pulmonary Hypertension - Consult Cardiology - recommendations appreciated - EKG without STEMI criteria - Serial troponin: 419.5 -> 2712.0 -> 1279.2 - Transthoracic echocardiogram (01/22/2022) = "moderate pulmonary hypertension. improved since 10/2021. normal ejection fraction. no effusion." - Continue home medications - Daily weights - Strict I/O - Cardiac diet, 1.5 L fluid restriction, 2 g Na restriction # Paroxysmal Atrial Fibrillation with Rapid Ventricular Response His [id number] = 5 (CHF=1, HTN=1, DM=1, CAD=1, Age 65-74=1), which warrants anticoagulation. - Cardiology consulted - recommendations appreciated - Continue metoprolol, amiodarone, apixaban # Hyperglycemia in Type II Diabetes Mellitus - Continue home insulin - Correction scale insulin # Coronary Artery Disease # Hypertension # Dyslipidemia - Reconcile home medications once verified # Subclinical Hyperthyroidism - TSH 0.221, Free T4 1.06 - Follow-up with PCP Dennis Espinosa M.D.
--- NOTE | 2022-11-22 15:42 | EKG ---
Test Date: 2022-11-19 Test Time: 14:44:08 Field Liability Generalist: ATIYA MEASUREMENT RESULTS: Intervals: Rate: 95 [place]: 168 QRSD: 96 QT: 336 QTc: 422 [place]: P: 28 [place]: 168 QRS: 101 T: -72 INTERPRETIVE STATEMENTS: Normal sinus rhythm Inferior infarct, age undetermined ST & T wave abnormality, consider anterolateral ischemia Abnormal ECG Compared to ECG 07/31/2022 15:39:57 Myocardial infarct finding now present Sinus tachycardia no longer present ST (T wave) deviation still present Possible ischemia still present Electronically Signed On 11-22-22 15:41:50 CDT by Yared Olivares
--- NOTE | 2022-11-22 18:41 | CON ---
Date of Consultation: 11/21/2022 Reason For Consultation: Atrial fibrillation with rapid ventricular response. History Of Present Illness: A 67-year-old male, who was brought in to the hospital from shelter due to the risk of responsiveness. He does have advanced dementia, hypertension, diabetes, dyslipid emia, and diastolic heart failure. He went into atrial fibrillation with rapid ventricular response, started on amiodarone and converted to sinus rhythm. Past Medical History: As outlined above in HPI. Medications: Refer to reconciliation sheet for detailed list. Allergies: NO KNOWN DRUG ALLERGIES. Family History: No premature coronary artery disease or cancer. Social History: He does not smoke or drink. Does not use any drugs. Review of Systems: All systems reviewed and they were negative except what mentioned in HPI. Physical Examination: Vital Signs: Reviewed. Head and Neck: Pupils are equal, reactive to light. No JVD. No cervical lymphadenopathy. Neck is supple. Thyroid is not enlarged. Lungs: Clear to auscultation bilaterally. No rhonchi, wheezing, or crackles. No accessory muscle u se. Heart: Regular rate and rhythm. No extra sounds. Abdomen: Soft, nontender. Bowel sounds positive. No organomegaly. No masses or hernia. No rigidi ty or rebound. Extremities: No edema, clubbing, or cyanosis. Intact pulses. Skin: No rash. Neurologic: Alert, awake, oriented x3. No acute focal deficits appreciated. Investigations: Troponin 2712 down to 1279, BUN 60, creatinine 1.5. Assessment And Recommendations: 1.Atrial fibrillation with rapid ventricular response, converted to sinus rhythm. I will switch ami odarone to oral 200 mg twice a day, start him on Eliquis 2.5 mg twice a day, and agree to continue me toprolol as well as advance the dose of metoprolol as needed for better heart rate control. 2.Elevated troponin. This could be acute coronary syndrome and could be demand as well. This patie nt has advanced dementia and he is DNR. At this point, I recommend medical management only due to hi s overall poor condition. Due to advanced dementia, I recommend to start baby aspirin and try to tit rate up the beta-blockers to get a heart rate close to 60 and start Lipitor 40 mg at bedtime and obta in an echocardiogram. SR/MODL Voice ID: [id number] Report ID: [id number]
--- NOTE | 2022-11-22 21:41 | PN ---
Date of Progress Note: 11/22/2022 Subjective: Seen by bedside. He is not offering any complaints. Does not respond very well. Review of Systems: No symptoms. Patient is a very poor historian. Physical Examination: Vital Signs: Reviewed. Head and Neck: Pupils are equal, reactive to light. Intact eye movements. No JVD. No cervical lym phadenopathy. Neck: Supple. Thyroid is not enlarged. Lungs: Clear to auscultation bilaterally. No rhonchi, rales, or crackles. No accessory muscle use. Heart: Regular rate and rhythm. No extra sounds. Abdomen: Soft, nontender. Bowel sounds positive. No organomegaly. No masses or hernia. No rigidi ty or rebound. Extremities: No clubbing, cyanosis. Intact pulses. Skin: No rash. Neurologic: Alert, but with confusion. No focal deficits appreciated. Lymph Nodes: No cervical or axillary lymphadenopathy. Investigations: Troponins 646. BUN 54, creatinine is 1.37. Assessment/recommendations: 1.Atrial fibrillation back in sinus rhythm. Continue Eliquis and amiodarone. 2.Elevated troponin, probably this could be demand versus acute coronary syndrome, but due to advanc ed dementia and poor quality of life, no further invasive cardiac workup is recommended, but I recomm end to uptitrate the metoprolol to keep the heart rate close to 60 and continue baby aspirin. Start him on high-dose statin 40 mg Lipitor. SR/MODL Voice ID: [id number] Report ID: [id number]
[2022-11-22] MEDS: MIRTAZAPINE 15 MG TAB PO SCH (22:11)
[2022-11-22] MEDS: INSULIN GLARGINE 100 UNIT/ML SQ SCH (22:13)
[2022-11-23] MEDS: PIPER TAZO 3.375 GM in NA CHLORIDE 0.9% 100 ML IV SCH ×3 (01:17→19:02)
[2022-11-23] MEDS: ALBUTEROL 2.5 MG/3 ML NEB SOL NEB SCH ×4 (02:10→19:40)
[2022-11-23] MEDS: IPRATROPIUM BROM 0.5MG/2.5ML NEB SCH ×4 (02:10→19:40)
[2022-11-23 06:54] LABS: Absolute Lymphocytes (CBC) 0.3 K/uL (0.7-4.9); Hematocrit 39.4 % (39.6-49.0); Lymphocytes % 4.2 % (15.3-44.8); MPV 8.3 fL (7.6-11.3); RBC Red Blood Cell Count 3.94 M/uL (4.33-5.43)
[2022-11-23] MEDS: SILDENAFIL CITRATE 20 MG TABLET PO SCH (07:00)
[2022-11-23 07:13] LABS: Potassium 5.2 mEq/L (3.5-5.1)
[2022-11-23] MEDS: acetaZOLAMIDE 250 MG TAB PO SCH (09:00)
[2022-11-23] MEDS: SPIRONOLACTONE 25 MG TABLET PO SCH (09:00)
[2022-11-23] MEDS: AMIODARONE HCL 200 MG TAB PO SCH (09:00)
[2022-11-23] MEDS: METOPROLOL TAR 25 MG TAB PO SCH ×2 (09:00→21:51)
[2022-11-23 09:07] LABS: Anisocytosis 1+; Blood Morphology Comment NOTED (NOT SEEN); Platelet Estimate ADEQ; White Blood Cell Scan OK (OK)
[2022-11-23] MEDS: APIXABAN 2.5 MG TABLET PO SCH ×2 (10:48→21:51)
[2022-11-23] MEDS: allopurinoL 300 MG TAB PO SCH (10:48)
[2022-11-23] MEDS: ASPIRIN EC 81 MG TAB PO SCH (10:48)
[2022-11-23] MEDS: predniSONE 20 MG TAB PO SCH ×2 (10:49→21:50)
[2022-11-23] MEDS: DULERA 200/5 (MOMETASONE/FORMOTEROL) INHALER IH SCH ×2 (10:50→21:51)
[2022-11-23] MEDS: MUPIROCIN 2% OINT 22GM TUBE TOP SCH ×2 (12:30→21:51)
[2022-11-23 12:39] LABS: Arterial Blood Carboxyhemoglob 1.3 % (0-1.5); Blood Gas Oxyhemoglobin 92.7 % (94-97)
[2022-11-23] MEDS ORDERED: AMIODARONE HCL 150 MG in D5W 100 ML IV STA (17:04)
--- NOTE | 2022-11-23 18:35 | P.PN ---
Subjective Date of Service: 11/23/22 Chief Complaint: Unresponsiveness No acute events overnight. He appear more lethargic this morning. He is wearing the BiPAP and gives me a "thumbs up" when asked how he is feeling. I spoke with him as well as his cousin at bedside, Ms. Zayas. They are discussing potential discharge with enrollment with hospice services. We are planning to meet tomorrow with additional family members to discuss this further. He denies any chest pain, palpitations, or shortness of breath. Review of Systems 10-point ROS is otherwise unremarkable General: Weakness (generalized) Physical Examination - Vital Signs Temperature: 97.3 F Blood Pressure: 96/70 Pulse: 117 Respirations: 16 Pulse Ox (%): 95 Assessment And Plan - Plan - Physical Exam General: Alert, In no apparent distress, Oriented x3 HEENT: Atraumatic, Mucous membr. moist/pink, Sclerae nonicteric Neck: JVD not distended Respiratory: Diminished, Rhonchi/gurgles (scattered) Cardiovascular: No edema, No murmurs, Irregular heart rate/rhythm Gastrointestinal: Normal bowel sounds, Soft, Non-distended, No tenderness Musculoskeletal: No clubbing Integumentary: No rashes Neurological: Normal gait, Normal affect # Acute Toxic Metabolic Encephalopathy likely secondary to Acute on Chronic Hypercapnic Respiratory Failureimproved # Pulmonary Hypertension # History of Multi-Drug Resistant Urinary Tract Infections - Evaluation thus far: - Urinalysis = 3+ blood, 250 leukocyte esterase, > 50 RBCs, trace protein - Initial ABG = pH 7.10, PCO2 98.5, PO2 80.5 - CT head/cervical spine/chest/abdomen/pelvis = "1. Head CT: No acute intracranial abnormality. 2. Cervical spine CT: No acute fracture or traumatic malalignment of the cervical spine. 3. Chest CT: Moderate left and trace right pleural effusion. Left lower lobe and lingular consolidation concerning for pneumonia though there is likely some component of atelectasis as well. 4. CT abdomen/pelvis: No acute intra-abdominal abnormality. Moderate rectal stool burden could indicate fecal impaction. Other incidental findings as noted above" - Chest x-ray (11/21) = "mild partial interval improvement in the bibasilar lungs as above. Other persistent left sided air space opacities." - Management plan: - Consulted Pulmonology - recommendations appreciated - Requested overnight pulse oximetry to evaluate for obstructive sleep apnea # Severe Sepsis likely secondary to Pneumonia He met SIRS criteria based on HR > 90 bpm, RR > 20 breaths/min, WBC > 12,000, and the suspected source is pulmonary. Severe sepsis is suspected due to concern for tissue hypoperfusion/organ dysfunction based on acute respiratory failure requiring BiPAP. - Sepsis order set was initiated - Initial Lactate was 1.1 - Blood cultures drawn - Broad spectrum antibiotics started: Piperacillin-Tazobactam - In regards to fluids: - 30 mL/kg of IV fluids was not administered given SBP > 90, MAP > 65, lactic acid < 4 # Suspect Type II Non-ST Segment Elevation Myocardial Infarction (Demand Ischemia) due to above # Chronic Compensated Diastolic Congestive Heart Failure with Preserved Ejection Fraction # Moderate Pulmonary Hypertension - Consult Cardiology - recommendations appreciated - EKG without STEMI criteria - Serial troponin: 419.5 -> 2712.0 -> 1279.2 - Transthoracic echocardiogram (01/22/2022) = "moderate pulmonary hypertension. improved since 10/2021. normal ejection fraction. no effusion." - Continue home medications - Daily weights - Strict I/O - Cardiac diet, 1.5 L fluid restriction, 2 g Na restriction # Paroxysmal Atrial Fibrillation with Rapid Ventricular Response His [id number] = 5 (CHF=1, HTN=1, DM=1, CAD=1, Age 65-74=1), which warrants anticoagulation. - Cardiology consulted - recommendations appreciated - Continue metoprolol, amiodarone, apixaban # Hyperglycemia in Type II Diabetes Mellitus - Continue home insulin - Correction scale insulin # Coronary Artery Disease # Hypertension # Dyslipidemia - Reconcile home medications once verified # Subclinical Hyperthyroidism - TSH 0.221, Free T4 1.06 - Follow-up with PCP Disposition: Currently discussing possible hospice services. Plan for family meeting tomorrow. Dennis Espinosa M.D.
[2022-11-23] MEDS: AMIODARONE HCL 900 MG in Dextrose 5%-Water 482 ML IV SCH (19:01)
[2022-11-23] MEDS: MIRTAZAPINE 15 MG TAB PO SCH (21:51)
[2022-11-23] MEDS: INSULIN GLARGINE 100 UNIT/ML SQ SCH (21:52)
[2022-11-24] MEDS: PIPER TAZO 3.375 GM in NA CHLORIDE 0.9% 100 ML IV SCH ×3 (00:59→16:42)
[2022-11-24] MEDS: ALBUTEROL 2.5 MG/3 ML NEB SOL NEB SCH ×4 (01:55→19:50)
[2022-11-24] MEDS: IPRATROPIUM BROM 0.5MG/2.5ML NEB SCH ×4 (01:55→19:50)
[2022-11-24 06:57] LABS: Potassium 5.2 mEq/L (3.5-5.1)
[2022-11-24] MEDS: ASPIRIN EC 81 MG TAB PO SCH (08:00)
[2022-11-24] MEDS: APIXABAN 2.5 MG TABLET PO SCH ×2 (08:01→20:55)
[2022-11-24] MEDS: predniSONE 20 MG TAB PO SCH ×2 (08:01→20:55)
[2022-11-24] MEDS: allopurinoL 300 MG TAB PO SCH (08:01)
[2022-11-24] MEDS: acetaZOLAMIDE 250 MG TAB PO SCH (08:01)
[2022-11-24] MEDS: MUPIROCIN 2% OINT 22GM TUBE TOP SCH ×2 (08:02→20:49)
[2022-11-24] MEDS: METOPROLOL TAR 25 MG TAB PO SCH ×2 (08:11→20:55)
[2022-11-24] MEDS: DULERA 200/5 (MOMETASONE/FORMOTEROL) INHALER IH SCH ×2 (08:15→20:49)
--- NOTE | 2022-11-24 17:40 | P.PN ---
Subjective Date of Service: 11/24/22 Chief Complaint: Unresponsiveness No acute events overnight. He is having intermittent episodes of lethargy, but he denies any concerns this morning. He is alert and oriented x 1 this morning. I had an extensive [id number] discussion with his aunt (stated MPOA), Ms. Hermosillo, who stated that he has dementia and will have intermittent episodes of confusion. He is A&O x 1-2 at baseline, but can sometimes answer questions correctly if he has been recently told the answers. After a thorough discussion, it appears that Mr. Ryder has made it clear in the past that he would wish to be enrolled in comfort-care/hospice services if he was to be in the condition that he is in now. At her request, will consult case management to help arrange an informational hospice meeting. Review of Systems General: Weakness (generalized) Neurological: Confusion Physical Examination - Vital Signs Temperature: 98.1 F Blood Pressure: 112/65 Pulse: 75 Respirations: 20 Pulse Ox (%): 97 - Studies Microbiology Data (last 24 hrs): 11/19/22 14:25 Blood - Blood Aerobic Blood Culture - Final No growth in 5 days. 11/19/22 14:25 Blood - Blood Anaerobic Blood Culture - Final No growth in 5 days. 11/19/22 14:10 Blood - Blood Aerobic Blood Culture - Final No growth in 5 days. 11/19/22 14:10 Blood - Blood Anaerobic Blood Culture - Final No growth in 5 days. Assessment And Plan - Plan - Physical Exam General: Alert, In no apparent distress, Oriented x1 HEENT: Atraumatic, Mucous membr. moist/pink, Sclerae nonicteric Neck: JVD not distended Respiratory: Diminished, Rhonchi/gurgles (scattered) Cardiovascular: No edema, No murmurs, Irregular heart rate/rhythm Gastrointestinal: Normal bowel sounds, Soft, Non-distended, No tenderness Musculoskeletal: No clubbing Integumentary: No rashes Neurological: Normal gait, Normal affect # Acute Toxic Metabolic Encephalopathy on Dementia likely secondary to Acute on Chronic Hypercapnic Respiratory Failureimproved # Pulmonary Hypertension # History of Multi-Drug Resistant Urinary Tract Infections - Evaluation thus far: - Urinalysis = 3+ blood, 250 leukocyte esterase, > 50 RBCs, trace protein - Initial ABG = pH 7.10, PCO2 98.5, PO2 80.5 - CT head/cervical spine/chest/abdomen/pelvis = "1. Head CT: No acute intracranial abnormality. 2. Cervical spine CT: No acute fracture or traumatic malalignment of the cervical spine. 3. Chest CT: Moderate left and trace right pleural effusion. Left lower lobe and lingular consolidation concerning for pneumonia though there is likely some component of atelectasis as well. 4. CT abdomen/pelvis: No acute intra-abdominal abnormality. Moderate rectal stool burden could indicate fecal impaction. Other incidental findings as noted above" - Chest x-ray (11/21) = "mild partial interval improvement in the bibasilar lungs as above. Other persistent left sided air space opacities." - Management plan: - Consulted Pulmonology - recommendations appreciated - Requested overnight pulse oximetry to evaluate for obstructive sleep apnea # Severe Sepsis likely secondary to Pneumonia He met SIRS criteria based on HR > 90 bpm, RR > 20 breaths/min, WBC > 12,000, and the suspected source is pulmonary. Severe sepsis is suspected due to concern for tissue hypoperfusion/organ dysfunction based on acute respiratory failure requiring BiPAP. - Sepsis order set was initiated - Initial Lactate was 1.1 - Blood cultures drawn - Broad spectrum antibiotics started: Piperacillin-Tazobactam - In regards to fluids: - 30 mL/kg of IV fluids was not administered given SBP > 90, MAP > 65, lactic acid < 4 # Suspect Type II Non-ST Segment Elevation Myocardial Infarction (Demand Ischemia) due to above # Chronic Compensated Diastolic Congestive Heart Failure with Preserved Ejection Fraction # Moderate Pulmonary Hypertension - Consult Cardiology - recommendations appreciated - EKG without STEMI criteria - Serial troponin: 419.5 -> 2712.0 -> 1279.2 - Transthoracic echocardiogram (01/22/2022) = "moderate pulmonary hypertension. improved since 10/2021. normal ejection fraction. no effusion." - Continue home medications - Daily weights - Strict I/O - Cardiac diet, 1.5 L fluid restriction, 2 g Na restriction # Paroxysmal Atrial Fibrillation with Rapid Ventricular Response His [id number] = 5 (CHF=1, HTN=1, DM=1, CAD=1, Age 65-74=1), which warrants anticoagulation. - Cardiology consulted - recommendations appreciated - Continue metoprolol, amiodarone, apixaban # Hyperglycemia in Type II Diabetes Mellitus - Continue home insulin - Correction scale insulin # Coronary Artery Disease # Hypertension # Dyslipidemia - Reconcile home medications once verified # Subclinical Hyperthyroidism - TSH 0.221, Free T4 1.06 - Follow-up with PCP Disposition: After an extensive conversation with his aunt (stated MPOA), Ms. Hermosillo, it appears that Mr. Ryder has made it clear in the past that he would wish to be enrolled in hospice services. Dennis Espinosa M.D.
--- NOTE | 2022-11-24 19:10 | PN ---
Date of Progress Note: 11/24/2022 Subjective: Seen by bedside. No changes. Review of Systems: No reported chest pain, nausea, vomiting. He has been in sinus rhythm. All other systems reviewed a nd they were negative. Physical Examination: Vital Signs: Reviewed. Head and Neck: Pupils are equal, reactive to light. Intact eye movements. No JVD. No cervical lym phadenopathy. Neck is supple. Thyroid is not enlarged. Lungs: Clear to auscultation bilaterally. No rhonchi, wheezing, or crackles. No accessory muscle u se. Heart: Regular rate and rhythm. No extra sounds. Abdomen: Soft, nontender. Bowel sounds positive. No organomegaly. No masses or hernia. No rigidi ty or rebound. Extremities: There is no clubbing or cyanosis. Intact pulses. Skin: No rash. Neurologic: Unchanged. Lymph Nodes: No cervical or axillary lymphadenopathy. Investigations: BUN is 51, creatinine 1.26, and hemoglobin 12.1. Assessment And Recommendations: 1.Atrial fibrillation, back in sinus. Resume oral amiodarone 200 mg twice a day and continue Eliqui s. 2.Elevated troponin, could be demand, could be non-ST segment elevation myocardial infarction; [facility], due to poor quality of life and severe dementia, I recommend conservative management and to use b eta-[place] which he is on, try to adjust the dose to 25 mg twice a day, and start him on baby aspirin and high-dose statin. Cardiology will sign off on the dann torres SR/GEM Voice ID: [id number] Report ID: [id number]
[2022-11-24] MEDS: AMIODARONE HCL 900 MG in Dextrose 5%-Water 482 ML IV SCH (20:48)
[2022-11-24] MEDS: MIRTAZAPINE 15 MG TAB PO SCH (20:55)
[2022-11-24] MEDS: INSULIN GLARGINE 100 UNIT/ML SQ SCH (20:56)
[2022-11-25] MEDS: PIPER TAZO 3.375 GM in NA CHLORIDE 0.9% 100 ML IV SCH ×2 (00:42→09:27)
[2022-11-25] MEDS: ALBUTEROL 2.5 MG/3 ML NEB SOL NEB SCH ×4 (01:15→19:45)
[2022-11-25] MEDS: IPRATROPIUM BROM 0.5MG/2.5ML NEB SCH ×4 (01:15→19:45)
[2022-11-25 06:48] LABS: Potassium 5.3 mEq/L (3.5-5.1)
[2022-11-25] MEDS: METOPROLOL TAR 25 MG TAB PO SCH ×2 (09:00→21:30)
[2022-11-25] MEDS: acetaZOLAMIDE 250 MG TAB PO SCH (09:00)
[2022-11-25] MEDS: ASPIRIN EC 81 MG TAB PO SCH (12:06)
[2022-11-25] MEDS: allopurinoL 300 MG TAB PO SCH (12:06)
[2022-11-25] MEDS: predniSONE 20 MG TAB PO SCH ×2 (12:06→21:30)
[2022-11-25] MEDS: APIXABAN 2.5 MG TABLET PO SCH ×2 (12:06→21:30)
[2022-11-25] MEDS: MUPIROCIN 2% OINT 22GM TUBE TOP SCH ×2 (12:07→21:33)
[2022-11-25] MEDS: DULERA 200/5 (MOMETASONE/FORMOTEROL) INHALER IH SCH ×2 (12:07→21:33)
[2022-11-25] MEDS ORDERED: D10W 125 ML IV PRN (13:13)
[2022-11-25] MEDS: AMIODARONE HCL 900 MG in Dextrose 5%-Water 482 ML IV SCH (19:17)
[2022-11-25] MEDS: MIRTAZAPINE 15 MG TAB PO SCH (21:31)
[2022-11-25] MEDS: INSULIN GLARGINE 100 UNIT/ML SQ SCH (21:34)
--- NOTE | 2022-11-25 22:57 | P.PN ---
Subjective Date of Service: 11/25/22 Chief Complaint: Unresponsiveness This morning on rounds, he was wearing the BiPAP mask. He appeared lethargic, but will open his eyes to his name. When asked how he is feeling, he gave a "thumbs up." Appreciate CM assistance with arranging hospice services. Review of Systems is unable to be obtained Physical Examination - Vital Signs Temperature: 97.9 F Blood Pressure: 124/73 Pulse: 108 Respirations: 18 Pulse Ox (%): 92 Assessment And Plan - Plan - Physical Exam General: Alert, In no apparent distress, Oriented x1 HEENT: Atraumatic, Mucous membr. moist/pink, Sclerae nonicteric Neck: JVD not distended Respiratory: Diminished, Rhonchi/gurgles (scattered) Cardiovascular: No edema, No murmurs, Irregular heart rate/rhythm Gastrointestinal: Normal bowel sounds, Soft, Non-distended, No tenderness Musculoskeletal: No clubbing Integumentary: No rashes Neurological: Normal gait, Normal affect # Acute Toxic Metabolic Encephalopathy on Dementia likely secondary to Acute on Chronic Hypercapnic Respiratory Failureimproved # Pulmonary Hypertension # History of Multi-Drug Resistant Urinary Tract Infections - Evaluation thus far: - Urinalysis = 3+ blood, 250 leukocyte esterase, > 50 RBCs, trace protein - Initial ABG = pH 7.10, PCO2 98.5, PO2 80.5 - CT head/cervical spine/chest/abdomen/pelvis = "1. Head CT: No acute intracranial abnormality. 2. Cervical spine CT: No acute fracture or traumatic malalignment of the cervical spine. 3. Chest CT: Moderate left and trace right pleural effusion. Left lower lobe and lingular consolidation concerning for pneumonia though there is likely some component of atelectasis as well. 4. CT abdomen/pelvis: No acute intra-abdominal abnormality. Moderate rectal stool burden could indicate fecal impaction. Other incidental findings as noted above" - Chest x-ray (11/21) = "mild partial interval improvement in the bibasilar lungs as above. Other persistent left sided air space opacities." - Management plan: - Consulted Pulmonology - recommendations appreciated - Requested overnight pulse oximetry to evaluate for obstructive sleep apnea # Severe Sepsis likely secondary to Pneumonia He met SIRS criteria based on HR > 90 bpm, RR > 20 breaths/min, WBC > 12,000, and the suspected source is pulmonary. Severe sepsis is suspected due to concern for tissue hypoperfusion/organ dysfunction based on acute respiratory failure requiring BiPAP. - Sepsis order set was initiated - Initial Lactate was 1.1 - Blood cultures drawn - Broad spectrum antibiotics started: Piperacillin-Tazobactam - In regards to fluids: - 30 mL/kg of IV fluids was not administered given SBP > 90, MAP > 65, lactic acid < 4 # Suspect Type II Non-ST Segment Elevation Myocardial Infarction (Demand Ischemia) due to above # Chronic Compensated Diastolic Congestive Heart Failure with Preserved Ejection Fraction # Moderate Pulmonary Hypertension - Consult Cardiology - recommendations appreciated - EKG without STEMI criteria - Serial troponin: 419.5 -> 2712.0 -> 1279.2 - Transthoracic echocardiogram (01/22/2022) = "moderate pulmonary hypertension. improved since 10/2021. normal ejection fraction. no effusion." - Continue home medications - Daily weights - Strict I/O - Cardiac diet, 1.5 L fluid restriction, 2 g Na restriction # Paroxysmal Atrial Fibrillation with Rapid Ventricular Response His [id number] = 5 (CHF=1, HTN=1, DM=1, CAD=1, Age 65-74=1), which warrants anticoagulation. - Cardiology consulted - recommendations appreciated - Continue metoprolol, amiodarone, apixaban # Hyperglycemia in Type II Diabetes Mellitus - Continue home insulin - Correction scale insulin # Coronary Artery Disease # Hypertension # Dyslipidemia - Reconcile home medications once verified # Subclinical Hyperthyroidism - TSH 0.221, Free T4 1.06 - Follow-up with PCP Disposition: Currently pending hospice services. Appreciate CM assistance. Dennis Espinosa M.D.
[2022-11-26] MEDS: ALBUTEROL 2.5 MG/3 ML NEB SOL NEB SCH ×2 (02:20→07:30)
[2022-11-26] MEDS: IPRATROPIUM BROM 0.5MG/2.5ML NEB SCH ×2 (02:20→07:30)
[2022-11-26 08:04] VITALS: O2SAT 92
[2022-11-26 08:40] VITALS: BP 119/72; TEMP 97.2
--- NOTE | 2022-11-26 08:56 | P.DS ---
Admission Date: 11/19/22 Discharge Date: 11/26/22 Disposition: HOSPICE-HOME Discharge Condition: GOOD Reason for Admission: Unresponsiveness Consultations: 1. Cardiology 2. Pulmonology Hospital Course: DIAGNOSES: # Acute Toxic Metabolic Encephalopathy on Dementia likely secondary to Acute on Chronic Hypercapnic Respiratory Failureimproved # Severe Sepsis likely secondary to Pneumonia # Paroxysmal Atrial Fibrillation with Rapid Ventricular Response # Hyperglycemia in Type II Diabetes Mellitus # Suspect Type II Non-ST Segment Elevation Myocardial Infarction (Demand Ischemia) due to above # Chronic Compensated Diastolic Congestive Heart Failure with Preserved Ejection Fraction # History of Multi-Drug Resistant Urinary Tract Infections # Moderate Pulmonary Hypertension # Coronary Artery Disease # Hypertension # Dyslipidemia # Subclinical Hyperthyroidism HOSPITAL COURSE: Mr. George Ryder is a 67-year-old male with a past medical history significant for advanced Alzheimer's dementia, chronic hypercapnic respiratory failure, pulmonary hypertension, diastolic congestive heart failure, atrial fibrillation, type 2 diabetes mellitus, coronary artery disease, hypertension, dyslipidemia who was admitted to the [facility] on 11/19/2022 for altered mental status. He was admitted to the Medicine service. Upon further evaluation, he was found to be unresponsive. His initial ABG revealed a pH of 7.10, PCO2 of 98.5, and a PO2 of 80.5. He was admitted to the ICU and started on BiPAP therapy. He was also noted to have severe sepsis secondary to pneumonia, atrial fibrillation with rapid ventricular response, and a type II non-ST segment elevation myocardial infarction. He was treated with IV antibiotics, amiodarone, and antic oagulation. During his hospitalization, his symptoms would fluctuate, but he would require intermittent BiPAP therapy. A [id number] discussion was initiated with his family given his poor quality of life. Ultimately, his family decided that his quality of life is poor and he would never wish to continue with inpatient hospitalization given the current condition he is in. They stated that hospice/comfort care is most consistent with his wishes. With the assistance of case management, home hospice services were arranged. On 11/26/2022, he was seen on morning rounds and deemed medically stable for discharge. He and his family members were given the opportunity to ask questions and reported no further questions. Furthermore, all questions were answered to the best of my ability. Today, I personally spent 20 minutes on his case, of which greater than 50% of the time was spent in patient education, counseling, and coordination of care as described above. - Physical Exam General: Alert, In no apparent distress, Oriented x1 HEENT: Atraumatic, Mucous membr. moist/pink, Sclerae nonicteric Respiratory: Diminished, Rhonchi/gurgles (scattered) Cardiovascular: No edema, No murmurs, Irregular heart rate/rhythm Gastrointestinal: Soft, Non-distended, No tenderness Musculoskeletal: No clubbing Integumentary: No rashes Neurological: Normal gait, Normal affect Vital Signs/Physical Exam: Temp Pulse Resp BP Pulse Ox 97.2 F 79 18 119/72 94 11/26/22 08:00 11/26/22 08:00 11/26/22 08:00 11/26/22 08:00 11/26/22 08:00 Laboratory Data at Discharge: WBC 7.00 thou/uL (4.3-10.9) 11/23/22 06:21 Hgb 12.1 g/dL (13.6-17.9) L 11/23/22 06:21 Hct 39.4 % (39.6-49.0) L 11/23/22 06:21 Plt Count 179 thou/uL (152-406) 11/23/22 06:21 PT 11.3 SECONDS (9.5-12.5) 11/19/22 14:10 INR 1.03 11/19/22 14:10 Sodium 136 mEq/L (136-145) 11/25/22 06:15 Potassium 5.3 mEq/L (3.5-5.1) H 11/25/22 06:15 BUN 44 mg/dL (7-18) H 11/25/22 06:15 Creatinine 1.07 mg/dL (0.70-1.30) 11/25/22 06:15 Glucose 200 mg/dL (74-106) H 11/25/22 06:15 Phosphorus 3.2 mg/dL (2.5-4.9) 11/20/22 05:03 Magnesium 2.3 mg/dL (1.6-2.4) 11/20/22 05:03 Total Bilirubin 0.4 mg/dL (0.2-1.0) 11/21/22 11:15 AST 9 U/L (15-37) L 11/21/22 11:15 ALT 15 U/L (16-61) L 11/21/22 11:15 Alkaline Phosphatase 67 U/L (45-117) 11/21/22 11:15 Lipase 38 U/L (13-75) 11/19/22 14:10 Home Medications: Allopurinol 300 mg PO DAILY 10/19/21 Mirtazapine [Remeron*] 15 mg PO BEDTIME 10/19/21 Sildenafil Citrate 20 mg PO Q12H 10/19/21 Spironolactone [Aldactone*] 25 mg PO BID #60 tab 10/21/21 acetaZOLAMIDE [Diamox*] 250 mg PO DAILY #30 tab 12/16/21 Albuterol Sulfate [Albuterol Sulfate 0.083% Neb Soln] 2.5 mg IH Q6H PRN 01/22/22 Metoprolol Tartrate [Lopressor*] 0.5 tab PO BID 01/22/22 Mometasone/Formoterol [Dulera 200 Mcg-5 Mcg Inhaler] 2 puff IH BID 01/22/22 Aspirin [Aspirin EC 81 MG] 81 mg PO DAILY 11/20/22 Mupirocin Oint [Bactroban 2% Ointment*] 1 appl TOP BID 11/20/22 Followup: Unknown,U [Primary Care Provider] -
[2022-11-26] MEDS: ASPIRIN EC 81 MG TAB PO SCH (09:09)
[2022-11-26] MEDS: METOPROLOL TAR 25 MG TAB PO SCH (09:09)
[2022-11-26] MEDS: predniSONE 20 MG TAB PO SCH (09:10)
[2022-11-26] MEDS: allopurinoL 300 MG TAB PO SCH (09:10)
[2022-11-26] MEDS: DULERA 200/5 (MOMETASONE/FORMOTEROL) INHALER IH SCH (09:10)
[2022-11-26] MEDS: acetaZOLAMIDE 250 MG TAB PO SCH (09:10)
[2022-11-26] MEDS: APIXABAN 2.5 MG TABLET PO SCH (09:10)
[2022-11-26] MEDS: MUPIROCIN 2% OINT 22GM TUBE TOP SCH (09:11)
== END 2022-11-26 12:02 | disposition hospice, home (50) | DRG 871 ==
LOC: ER 13:23 → UNDOADMIN 17:12 → ERHOLD 17:12 → 3RD-ICU 18:10 → 4TH 11-21 23:55
PROVIDERS: ADMIT Hospitalist; ATTEND Internal Medicine
PROC: 5A09557 Assistance with Respiratory Ventilation, Greater than 96 Consecutive Hours, Continuous Positive Airway Pressure (ICD-10-PCS; principal; 2022-11-19)
DX: A41.9 Sepsis, unspecified organism (principal); G92.8 Other toxic encephalopathy; J96.21 Acute and chronic respiratory failure with hypoxia; J18.9 Pneumonia, unspecified organism; J96.22 Acute and chronic respiratory failure with hypercapnia; I21.A1 Myocardial infarction type 2; I50.32 Chronic diastolic (congestive) heart failure; J44.0 Chronic obstructive pulmonary disease with (acute) lower respiratory infection; R65.20 Severe sepsis without septic shock; I27.20 Pulmonary hypertension, unspecified; N18.30 Chronic kidney disease, stage 3 unspecified; E11.22 Type 2 diabetes mellitus with diabetic chronic kidney disease; E11.65 Type 2 diabetes mellitus with hyperglycemia; I48.0 Paroxysmal atrial fibrillation; E78.00 Pure hypercholesterolemia, unspecified; E05.80 Other thyrotoxicosis without thyrotoxic crisis or storm; E87.5 Hyperkalemia; G30.9 Alzheimer's disease, unspecified; F02.C0 Dementia in other diseases classified elsewhere, severe, without behavioral disturbance, psychotic disturbance, mood disturbance, and anxiety; Z66 Do not resuscitate; Z79.82 Long term (current) use of aspirin; Z85.46 Personal history of malignant neoplasm of prostate; Z90.49 Acquired absence of other specified parts of digestive tract; Z79.52 Long term (current) use of systemic steroids; Z79.899 Other long term (current) drug therapy; Z20.822 Contact with and (suspected) exposure to COVID-19
CPT/HCPCS: 36415; 36600; 51702; 70450; 71045; 71250; 72125; 80048; 80053; 80076; 81001; 82140; 82805; 82947; 83605; 83690; 83735; 83880; 84100; 84439; 84443; 84484; 85025; 85610; 87040; 87635; 87804; 93005; 94660; 94760; 99285; J0282; J0696; J1650; J1815; J2543; J2930; J3535; J7030; J7040; J7060; J7512; J7613; J7614; J7644; P9047